=== PATIENT | female | born 1995 | race Hispanic/Latino ===

== ENCOUNTER 2019-07-22 19:56 | Emergency (ER) | payer BC ==
[~2019-07-22] VITALS: Ht 160 cm; Wt 70.3 kg
--- OUTSIDE RECORDS SUMMARY | 2019-07-22 20:00 | XMS REPORT ---
Author Author [facility], [place] Address Unknown Phone Unavailable Care Team Providers Care Plaster Molder Name Role Phone Unavailable Unavailable Payers Payer Name Policy Type Policy Number Effective Date Expiration Date Problems This patient has no known problems. Allergies, Adverse Reactions, Alerts Allergy Name Allergy Type Status Severity Reaction(s) Onset Date Inactive Date Treating Clinician Comments No Known Allergies DA Active U 2018-11-30 00:00:00 No Known Allergies DA Active U 2018-09-12 00:00:00 No Known Drug Allergies DA Active U 2017-07-23 00:00:00 Nestle quick jorge alberto powder DA Active IA 2017-06-07 00:00:00 Medications This patient has no known medications. Results Test Description Test Time Test Comments Text Results Atomic Results Result Comments CBC W/AUTO DIFF 2018-12-01 09:29:00 WHITE BLOOD CELL (test code=WBC) 11.2 K/mm3 4.5-12.5 RED BLOOD CELL (test code=RBC) 3.25 mill/mm3 3.7-5.2 HEMOGLOBIN (test code=HGB) 7.0 gram/dL 11.5-15.5 HEMATOCRIT (test code=HCT) 24.0 % 36.0-46.0 MEAN CELL VOLUME (test code=MCV) 73.8 fL 80-98 MEAN CELL HGB (test code=MCH) 21.5 picogram 27.0-33.0 MEAN CELL HGB CONCETRATION (test code=MCHC) 29.2 gram/dL 33.0-36.0 RED CELL DISTRIBUTION WIDTH (test code=RDW) 17.2 % 11.6-16.2 RED CELL DISTRIBUTION WIDTH SD (test code=RDW-SD) 41.2 fL 37.0-51.0 PLATELET COUNT (test code=PLT) 249 K/mm3 150-450 RESULT VERIFIED BY REPEAT ANALYSIS MEAN PLATELET VOLUME (test code=MPV) 11.1 fL 6.7-11.0 NEUTROPHIL % (test code=NT%) 75.2 % 39.0-69.0 IMMATURE GRANULOCYTE % (test code=IG%) 0.6 % 0.0-5.0 LYMPHOCYTE % (test code=LY%) 17.3 % 25.0-55.0 MONOCYTE % (test code=MO%) 6.3 % 0.0-10.0 EOSINOPHIL % (test code=EO%) 0.3 % 0.0-5.0 BASOPHIL % (test code=BA%) 0.3 % 0.0-1.0 NUCLEATED RBC % (test code=NRBC%) 0.0 % 0-0 NEUTROPHIL # (test code=NT#) 8.42 K/mm3 1.8-7.7 IMMATURE GRANULOCYTE # (test code=IG#) 0.07 x10 3/uL 0-0.03 LYMPHOCYTE # (test code=LY#) 1.94 K/mm3 1.0-5.0 MONOCYTE # (test code=MO#) 0.70 K/mm3 0-0.8 EOSINOPHIL # (test code=EO#) 0.03 K/mm3 0.0-0.5 BASOPHIL # (test code=BA#) 0.03 K/mm3 0.0-0.2 NUCLEATED RBC # (test code=NRBC#) 0.00 K/mm3 0.0-0.1 MANUAL DIFF REQUIRED (test code=MDIFF) NO, ONLY SCAN NEEDED SPECIMEN COMMENTS: day 1DIFFERENTIAL [id number] 09:29:00* Test Item Value Reference Range Comments STAIN ACCEPTABILITY (test code=STN ACCEPTABLE) STAIN ACCEPTABLE HYPOCHROMIA (test code=HYPO) 1+ POIKILOCYTOSIS (test code=POIK) 1+ ANISOCYTOSIS (test code=ANISO) 3+ MICROCYTOSIS (test code=MICR) 2+ ELLIPTOCYTES (test code=ELL) 1+ MILENA CELLS (test code=MILENA) 1+ NONE OVALOCYTES (test code=OVAL) 1+ PLATELET ESTIMATE (test code=PLTEST) ADEQUATE PLATELET MORPHOLOGY (test code=PLTMORPH) NORMAL SPECIMEN COMMENTS: day 1CBC W/AUTO [id number] 08:00:00* Test Item Value Reference Range Comments WHITE BLOOD CELL (test code=WBC) 11.2 K/mm3 4.5-12.5 RED BLOOD CELL (test code=RBC) 3.25 mill/mm3 3.7-5.2 HEMOGLOBIN (test code=HGB) 7.0 gram/dL 11.5-15.5 HEMATOCRIT (test code=HCT) 24.0 % 36.0-46.0 MEAN CELL VOLUME (test code=MCV) 73.8 fL 80-98 MEAN CELL HGB (test code=MCH) 21.5 picogram 27.0-33.0 MEAN CELL HGB CONCETRATION (test code=MCHC) 29.2 gram/dL 33.0-36.0 RED CELL DISTRIBUTION WIDTH (test code=RDW) 17.2 % 11.6-16.2 RED CELL DISTRIBUTION WIDTH SD (test code=RDW-SD) 41.2 fL 37.0-51.0 PLATELET COUNT (test code=PLT) 249 K/mm3 150-450 RESULT VERIFIED BY REPEAT ANALYSIS MEAN PLATELET VOLUME (test code=MPV) 11.1 fL 6.7-11.0 NEUTROPHIL % (test code=NT%) 75.2 % 39.0-69.0 IMMATURE GRANULOCYTE % (test code=IG%) 0.6 % 0.0-5.0 LYMPHOCYTE % (test code=LY%) 17.3 % 25.0-55.0 MONOCYTE % (test code=MO%) 6.3 % 0.0-10.0 EOSINOPHIL % (test code=EO%) 0.3 % 0.0-5.0 BASOPHIL % (test code=BA%) 0.3 % 0.0-1.0 NUCLEATED RBC % (test code=NRBC%) 0.0 % 0-0 NEUTROPHIL # (test code=NT#) 8.42 K/mm3 1.8-7.7 IMMATURE GRANULOCYTE # (test code=IG#) 0.07 x10 3/uL 0-0.03 LYMPHOCYTE # (test code=LY#) 1.94 K/mm3 1.0-5.0 MONOCYTE # (test code=MO#) 0.70 K/mm3 0-0.8 EOSINOPHIL # (test code=EO#) 0.03 K/mm3 0.0-0.5 BASOPHIL # (test code=BA#) 0.03 K/mm3 0.0-0.2 NUCLEATED RBC # (test code=NRBC#) 0.00 K/mm3 0.0-0.1 MANUAL DIFF REQUIRED (test code=MDIFF) NO, ONLY SCAN NEEDED SPECIMEN COMMENTS: day 1DIFFERENTIAL [id number] 08:00:00* Test Item Value Reference Range Comments STAIN ACCEPTABILITY (test code=STN ACCEPTABLE) MORPHOLOGY COMMENT (test code=MOC) PLATELET ESTIMATE (test code=PLTEST) PLATELET MORPHOLOGY (test code=PLTMORPH) SPECIMEN COMMENTS: day 1CBC W/AUTO [id number] 07:59:00* Test Item Value Reference Range Comments WHITE BLOOD CELL (test code=WBC) 11.2 K/mm3 4.5-12.5 RED BLOOD CELL (test code=RBC) 3.25 mill/mm3 3.7-5.2 HEMOGLOBIN (test code=HGB) 7.0 gram/dL 11.5-15.5 HEMATOCRIT (test code=HCT) 24.0 % 36.0-46.0 MEAN CELL VOLUME (test code=MCV) 73.8 fL 80-98 MEAN CELL HGB (test code=MCH) 21.5 picogram 27.0-33.0 MEAN CELL HGB CONCETRATION (test code=MCHC) 29.2 gram/dL 33.0-36.0 RED CELL DISTRIBUTION WIDTH (test code=RDW) 17.2 % 11.6-16.2 RED CELL DISTRIBUTION WIDTH SD (test code=RDW-SD) 41.2 fL 37.0-51.0 PLATELET COUNT (test code=PLT) 249 K/mm3 150-450 RESULT VERIFIED BY REPEAT ANALYSIS MEAN PLATELET VOLUME (test code=MPV) 11.1 fL 6.7-11.0 NEUTROPHIL % (test code=NT%) 75.2 % 39.0-69.0 IMMATURE GRANULOCYTE % (test code=IG%) 0.6 % 0.0-5.0 LYMPHOCYTE % (test code=LY%) 17.3 % 25.0-55.0 MONOCYTE % (test code=MO%) 6.3 % 0.0-10.0 EOSINOPHIL % (test code=EO%) 0.3 % 0.0-5.0 BASOPHIL % (test code=BA%) 0.3 % 0.0-1.0 NUCLEATED RBC % (test code=NRBC%) 0.0 % 0-0 NEUTROPHIL # (test code=NT#) 8.42 K/mm3 1.8-7.7 IMMATURE GRANULOCYTE # (test code=IG#) 0.07 x10 3/uL 0-0.03 LYMPHOCYTE # (test code=LY#) 1.94 K/mm3 1.0-5.0 MONOCYTE # (test code=MO#) 0.70 K/mm3 0-0.8 EOSINOPHIL # (test code=EO#) 0.03 K/mm3 0.0-0.5 BASOPHIL # (test code=BA#) 0.03 K/mm3 0.0-0.2 NUCLEATED RBC # (test code=NRBC#) 0.00 K/mm3 0.0-0.1 MANUAL DIFF REQUIRED (test code=MDIFF) NO, ONLY SCAN NEEDED SPECIMEN COMMENTS: day 1DIFFERENTIAL [id number] 07:59:00* Test Item Value Reference Range Comments STAIN ACCEPTABILITY (test code=STN ACCEPTABLE) CABOT RINGS (test code=CAB) MORPHOLOGY COMMENT (test code=MOC) PLATELET ESTIMATE (test code=PLTEST) PLATELET MORPHOLOGY (test code=PLTMORPH) SPECIMEN COMMENTS: day 1CBC W/AUTO [id number] 07:59:00* Test Item Value Reference Range Comments WHITE BLOOD CELL (test code=WBC) 11.2 K/mm3 4.5-12.5 RED BLOOD CELL (test code=RBC) 3.25 mill/mm3 3.7-5.2 HEMOGLOBIN (test code=HGB) 7.0 gram/dL 11.5-15.5 HEMATOCRIT (test code=HCT) 24.0 % 36.0-46.0 MEAN CELL VOLUME (test code=MCV) 73.8 fL 80-98 MEAN CELL HGB (test code=MCH) 21.5 picogram 27.0-33.0 MEAN CELL HGB CONCETRATION (test code=MCHC) 29.2 gram/dL 33.0-36.0 RED CELL DISTRIBUTION WIDTH (test code=RDW) 17.2 % 11.6-16.2 RED CELL DISTRIBUTION WIDTH SD (test code=RDW-SD) 41.2 fL 37.0-51.0 PLATELET COUNT (test code=PLT) 249 K/mm3 150-450 RESULT VERIFIED BY REPEAT ANALYSIS MEAN PLATELET VOLUME (test code=MPV) 11.1 fL 6.7-11.0 NEUTROPHIL % (test code=NT%) 75.2 % 39.0-69.0 IMMATURE GRANULOCYTE % (test code=IG%) 0.6 % 0.0-5.0 LYMPHOCYTE % (test code=LY%) 17.3 % 25.0-55.0 MONOCYTE % (test code=MO%) 6.3 % 0.0-10.0 EOSINOPHIL % (test code=EO%) 0.3 % 0.0-5.0 BASOPHIL % (test code=BA%) 0.3 % 0.0-1.0 NUCLEATED RBC % (test code=NRBC%) 0.0 % 0-0 NEUTROPHIL # (test code=NT#) 8.42 K/mm3 1.8-7.7 IMMATURE GRANULOCYTE # (test code=IG#) 0.07 x10 3/uL 0-0.03 LYMPHOCYTE # (test code=LY#) 1.94 K/mm3 1.0-5.0 MONOCYTE # (test code=MO#) 0.70 K/mm3 0-0.8 EOSINOPHIL # (test code=EO#) 0.03 K/mm3 0.0-0.5 BASOPHIL # (test code=BA#) 0.03 K/mm3 0.0-0.2 NUCLEATED RBC # (test code=NRBC#) 0.00 K/mm3 0.0-0.1 MANUAL DIFF REQUIRED (test code=MDIFF) NO, ONLY SCAN NEEDED SPECIMEN COMMENTS: day 1DIFFERENTIAL [id number] 07:59:00* Test Item Value Reference Range Comments STAIN ACCEPTABILITY (test code=STN ACCEPTABLE) MORPHOLOGY COMMENT (test code=MOC) PLATELET ESTIMATE (test code=PLTEST) PLATELET MORPHOLOGY (test code=PLTMORPH) SPECIMEN COMMENTS: day 1CBC W/AUTO [id number] 07:59:00* Test Item Value Reference Range Comments WHITE BLOOD CELL (test code=WBC) 11.2 K/mm3 4.5-12.5 RED BLOOD CELL (test code=RBC) 3.25 mill/mm3 3.7-5.2 HEMOGLOBIN (test code=HGB) 7.0 gram/dL 11.5-15.5 HEMATOCRIT (test code=HCT) 24.0 % 36.0-46.0 MEAN CELL VOLUME (test code=MCV) 73.8 fL 80-98 MEAN CELL HGB (test code=MCH) 21.5 picogram 27.0-33.0 MEAN CELL HGB CONCETRATION (test code=MCHC) 29.2 gram/dL 33.0-36.0 RED CELL DISTRIBUTION WIDTH (test code=RDW) 17.2 % 11.6-16.2 RED CELL DISTRIBUTION WIDTH SD (test code=RDW-SD) 41.2 fL 37.0-51.0 PLATELET COUNT (test code=PLT) 249 K/mm3 150-450 RESULT VERIFIED BY REPEAT ANALYSIS MEAN PLATELET VOLUME (test code=MPV) 11.1 fL 6.7-11.0 NEUTROPHIL % (test code=NT%) 75.2 % 39.0-69.0 IMMATURE GRANULOCYTE % (test code=IG%) 0.6 % 0.0-5.0 LYMPHOCYTE % (test code=LY%) 17.3 % 25.0-55.0 MONOCYTE % (test code=MO%) 6.3 % 0.0-10.0 EOSINOPHIL % (test code=EO%) 0.3 % 0.0-5.0 BASOPHIL % (test code=BA%) 0.3 % 0.0-1.0 NUCLEATED RBC % (test code=NRBC%) 0.0 % 0-0 NEUTROPHIL # (test code=NT#) 8.42 K/mm3 1.8-7.7 IMMATURE GRANULOCYTE # (test code=IG#) 0.07 x10 3/uL 0-0.03 LYMPHOCYTE # (test code=LY#) 1.94 K/mm3 1.0-5.0 MONOCYTE # (test code=MO#) 0.70 K/mm3 0-0.8 EOSINOPHIL # (test code=EO#) 0.03 K/mm3 0.0-0.5 BASOPHIL # (test code=BA#) 0.03 K/mm3 0.0-0.2 NUCLEATED RBC # (test code=NRBC#) 0.00 K/mm3 0.0-0.1 MANUAL DIFF REQUIRED (test code=MDIFF) NO, ONLY SCAN NEEDED SPECIMEN COMMENTS: day 1DIFFERENTIAL [id number] 07:59:00* Test Item Value Reference Range Comments STAIN ACCEPTABILITY (test code=STN ACCEPTABLE) CABOT RINGS (test code=CAB) MORPHOLOGY COMMENT (test code=MOC) PLATELET ESTIMATE (test code=PLTEST) PLATELET MORPHOLOGY (test code=PLTMORPH) SPECIMEN COMMENTS: day 1URINALYSIS [id number] 18:52:00* Test Item Value Reference Range Comments UA COLOR (test code=COLU) [place] YELLOW UA APPEARANCE (test code=APPU) Cloudy CLEAR UA GLUCOSE DIPSTICK (test code=DGLUU) NEGATIVE mg/dL NEGATIVE UA BILIRUBIN DIPSTICK (test code=BILU) NEGATIVE mg/dL NEGATIVE UA KETONE DIPSTICK (test code=KETU) 80 (3+) mg/dL NEGATIVE UA SPECIFIC GRAVITY (test code=SGU) 1.023 1.001-1.035 UA BLOOD DIPSTICK (test code=[place]IA [place]) Negative mg/dL NEGATIVE UA PH DIPSTICK (test code=SPIKE) 6.5 5.0-8.0 UA PROTEIN DIPSTICK (test code=PROU) 50 (1+) mg/dL NEGATIVE UA UROBILINIOGEN DIPSTICK (test code=URO) Normal mg/dL NEGATIVE UA NITRITE DIPSTICK (test code=MARGARET) NEGATIVE NEGATIVE UA LEUKOCYTE ESTERASE W REFLEX (test code=LEUUR) 500 Neno/uL (3+) Neno/uL NEGATIVE UA WBC (test code=WBCU) 51-100 per HPF 0-5 UA RBC (test code=RBCU) 3-5 #/HPF 0-5 UA EPITHELIAL CELLS (test code=EPIU) MANY per HPF FEW UA BACTERIA (test code=BACU) MODERATE #/HPF NONE UA MUCUS (test code=MUCU) MANY #/LPF FEW AG HEPAT B [id number] 18:23:00* Test Item Value Reference Range Comments AG HEPAT B SURF (test code=HBSAG) Nonreactive Index Nonreactive URINALYSIS [id number] 18:14:00* Test Item Value Reference Range Comments UA COLOR (test code=COLU) [place] YELLOW UA APPEARANCE (test code=APPU) Cloudy CLEAR UA GLUCOSE DIPSTICK (test code=DGLUU) NEGATIVE mg/dL NEGATIVE UA BILIRUBIN DIPSTICK (test code=BILU) NEGATIVE mg/dL NEGATIVE UA KETONE DIPSTICK (test code=KETU) 80 (3+) mg/dL NEGATIVE UA SPECIFIC GRAVITY (test code=SGU) 1.023 1.001-1.035 UA BLOOD DIPSTICK (test code=[place]) Negative mg/dL NEGATIVE UA PH DIPSTICK (test code=SPIKE) 6.5 5.0-8.0 UA PROTEIN DIPSTICK (test code=PROU) 50 (1+) mg/dL NEGATIVE UA UROBILINIOGEN DIPSTICK (test code=URO) Normal mg/dL NEGATIVE UA NITRITE DIPSTICK (test code=MARGARET) NEGATIVE NEGATIVE UA LEUKOCYTE ESTERASE W REFLEX (test code=LEUUR) 500 Neno/uL (3+) Neno/uL NEGATIVE UA WBC (test code=WBCU) per HPF 0-5 UA RBC (test code=RBCU) per HPF 0-5 UA EPITHELIAL CELLS (test code=EPIU) per HPF Few UA BACTERIA (test code=BACU) per HPF NONE URINALYSIS [id number] 18:14:00* Test Item Value Reference Range Comments UA COLOR (test code=COLU) [place] YELLOW UA APPEARANCE (test code=APPU) Cloudy CLEAR UA GLUCOSE DIPSTICK (test code=DGLUU) NEGATIVE mg/dL NEGATIVE UA BILIRUBIN DIPSTICK (test code=BILU) NEGATIVE mg/dL NEGATIVE UA KETONE DIPSTICK (test code=KETU) 80 (3+) mg/dL NEGATIVE UA SPECIFIC GRAVITY (test code=SGU) 1.023 1.001-1.035 UA BLOOD DIPSTICK (test code=[place]) Negative mg/dL NEGATIVE UA PH DIPSTICK (test code=SPIKE) 6.5 5.0-8.0 UA PROTEIN DIPSTICK (test code=PROU) 50 (1+) mg/dL NEGATIVE UA UROBILINIOGEN DIPSTICK (test code=URO) Normal mg/dL NEGATIVE UA NITRITE DIPSTICK (test code=MARGARET) NEGATIVE NEGATIVE UA LEUKOCYTE ESTERASE W REFLEX (test code=LEUUR) 500 Neno/uL (3+) Neno/uL NEGATIVE UA WBC (test code=WBCU) per HPF 0-5 UA RBC (test code=RBCU) per HPF 0-5 UA EPITHELIAL CELLS (test code=EPIU) per HPF Few UA BACTERIA (test code=BACU) per HPF NONE CBC W/AUTO [id number] 17:57:00* Test Item Value Reference Range Comments WHITE BLOOD CELL (test code=WBC) 11.3 K/mm3 4.5-12.5 RED BLOOD CELL (test code=RBC) 4.12 mill/mm3 3.7-5.2 HEMOGLOBIN (test code=HGB) 8.9 gram/dL 11.5-15.5 HEMATOCRIT (test code=HCT) 30.5 % 36.0-46.0 MEAN CELL VOLUME (test code=MCV) 74.0 fL 80-98 MEAN CELL HGB (test code=MCH) 21.6 picogram 27.0-33.0 MEAN CELL HGB CONCETRATION (test code=MCHC) 29.2 gram/dL 33.0-36.0 RED CELL DISTRIBUTION WIDTH (test code=RDW) 17.7 % 11.6-16.2 RED CELL DISTRIBUTION WIDTH SD (test code=RDW-SD) 41.1 fL 37.0-51.0 PLATELET COUNT (test code=PLT) 334 K/mm3 150-450 MEAN PLATELET VOLUME (test code=MPV) 10.5 fL 6.7-11.0 IMMATURE GRANULOCYTE % (test code=IG%) 0.6 % 0.0-5.0 NUCLEATED RBC % (test code=NRBC%) 0.0 % 0-0 NEUTROPHIL # (test code=NT#) 9.07 K/mm3 1.8-7.7 IMMATURE GRANULOCYTE # (test code=IG#) 0.07 x10 3/uL 0-0.03 LYMPHOCYTE # (test code=LY#) 1.56 K/mm3 1.0-5.0 MONOCYTE # (test code=MO#) 0.50 K/mm3 0-0.8 EOSINOPHIL # (test code=EO#) 0.02 K/mm3 0.0-0.5 BASOPHIL # (test code=BA#) 0.03 K/mm3 0.0-0.2 NUCLEATED RBC # (test code=NRBC#) 0.00 K/mm3 0.0-0.1 MANUAL DIFF REQUIRED (test code=MDIFF) NO, ONLY SCAN NEEDED DIFFERENTIAL [id number] 17:57:00* Test Item Value Reference Range Comments STAIN ACCEPTABILITY (test code=STN ACCEPTABLE) STAIN ACCEPTABLE POLYCHROMASIA (test code=POLC) 1+ HYPOCHROMIA (test code=HYPO) 2+ POIKILOCYTOSIS (test code=POIK) 1+ ANISOCYTOSIS (test code=ANISO) 2+ MICROCYTOSIS (test code=MICR) 2+ CRENATED CELLS (test code=CREN) 1+ PLATELET ESTIMATE (test code=PLTEST) ADEQUATE PLATELET MORPHOLOGY (test code=PLTMORPH) SIZE VARIABLE CBC W/AUTO [id number] 17:26:00* Test Item Value Reference Range Comments WHITE BLOOD CELL (test code=WBC) 11.3 K/mm3 4.5-12.5 RED BLOOD CELL (test code=RBC) 4.12 mill/mm3 3.7-5.2 HEMOGLOBIN (test code=HGB) 8.9 gram/dL 11.5-15.5 HEMATOCRIT (test code=HCT) 30.5 % 36.0-46.0 MEAN CELL VOLUME (test code=MCV) 74.0 fL 80-98 MEAN CELL HGB (test code=MCH) 21.6 picogram 27.0-33.0 MEAN CELL HGB CONCETRATION (test code=MCHC) 29.2 gram/dL 33.0-36.0 RED CELL DISTRIBUTION WIDTH (test code=RDW) 17.7 % 11.6-16.2 RED CELL DISTRIBUTION WIDTH SD (test code=RDW-SD) 41.1 fL 37.0-51.0 PLATELET COUNT (test code=PLT) 334 K/mm3 150-450 MEAN PLATELET VOLUME (test code=MPV) 10.5 fL 6.7-11.0 IMMATURE GRANULOCYTE % (test code=IG%) 0.6 % 0.0-5.0 NUCLEATED RBC % (test code=NRBC%) 0.0 % 0-0 NEUTROPHIL # (test code=NT#) 9.07 K/mm3 1.8-7.7 IMMATURE GRANULOCYTE # (test code=IG#) 0.07 x10 3/uL 0-0.03 LYMPHOCYTE # (test code=LY#) 1.56 K/mm3 1.0-5.0 MONOCYTE # (test code=MO#) 0.50 K/mm3 0-0.8 EOSINOPHIL # (test code=EO#) 0.02 K/mm3 0.0-0.5 BASOPHIL # (test code=BA#) 0.03 K/mm3 0.0-0.2 NUCLEATED RBC # (test code=NRBC#) 0.00 K/mm3 0.0-0.1 MANUAL DIFF REQUIRED (test code=MDIFF) NO, ONLY SCAN NEEDED DIFFERENTIAL [id number] 17:26:00* Test Item Value Reference Range Comments STAIN ACCEPTABILITY (test code=STN ACCEPTABLE) CABOT RINGS (test code=CAB) MORPHOLOGY COMMENT (test code=MOC) PLATELET ESTIMATE (test code=PLTEST) PLATELET MORPHOLOGY (test code=PLTMORPH) CBC W/AUTO [id number] 17:26:00* Test Item Value Reference Range Comments WHITE BLOOD CELL (test code=WBC) 11.3 K/mm3 4.5-12.5 RED BLOOD CELL (test code=RBC) 4.12 mill/mm3 3.7-5.2 HEMOGLOBIN (test code=HGB) 8.9 gram/dL 11.5-15.5 HEMATOCRIT (test code=HCT) 30.5 % 36.0-46.0 MEAN CELL VOLUME (test code=MCV) 74.0 fL 80-98 MEAN CELL HGB (test code=MCH) 21.6 picogram 27.0-33.0 MEAN CELL HGB CONCETRATION (test code=MCHC) 29.2 gram/dL 33.0-36.0 RED CELL DISTRIBUTION WIDTH (test code=RDW) 17.7 % 11.6-16.2 RED CELL DISTRIBUTION WIDTH SD (test code=RDW-SD) 41.1 fL 37.0-51.0 PLATELET COUNT (test code=PLT) 334 K/mm3 150-450 MEAN PLATELET VOLUME (test code=MPV) 10.5 fL 6.7-11.0 IMMATURE GRANULOCYTE % (test code=IG%) 0.6 % 0.0-5.0 NUCLEATED RBC % (test code=NRBC%) 0.0 % 0-0 NEUTROPHIL # (test code=NT#) 9.07 K/mm3 1.8-7.7 IMMATURE GRANULOCYTE # (test code=IG#) 0.07 x10 3/uL 0-0.03 LYMPHOCYTE # (test code=LY#) 1.56 K/mm3 1.0-5.0 MONOCYTE # (test code=MO#) 0.50 K/mm3 0-0.8 EOSINOPHIL # (test code=EO#) 0.02 K/mm3 0.0-0.5 BASOPHIL # (test code=BA#) 0.03 K/mm3 0.0-0.2 NUCLEATED RBC # (test code=NRBC#) 0.00 K/mm3 0.0-0.1 MANUAL DIFF REQUIRED (test code=MDIFF) NO, ONLY SCAN NEEDED DIFFERENTIAL [id number] 17:26:00* Test Item Value Reference Range Comments STAIN ACCEPTABILITY (test code=STN ACCEPTABLE) CABOT RINGS (test code=CAB) MORPHOLOGY COMMENT (test code=MOC) PLATELET ESTIMATE (test code=PLTEST) PLATELET MORPHOLOGY (test code=PLTMORPH) CBC W/AUTO [id number] 17:26:00* Test Item Value Reference Range Comments WHITE BLOOD CELL (test code=WBC) 11.3 K/mm3 4.5-12.5 RED BLOOD CELL (test code=RBC) 4.12 mill/mm3 3.7-5.2 HEMOGLOBIN (test code=HGB) 8.9 gram/dL 11.5-15.5 HEMATOCRIT (test code=HCT) 30.5 % 36.0-46.0 MEAN CELL VOLUME (test code=MCV) 74.0 fL 80-98 MEAN CELL HGB (test code=MCH) 21.6 picogram 27.0-33.0 MEAN CELL HGB CONCETRATION (test code=MCHC) 29.2 gram/dL 33.0-36.0 RED CELL DISTRIBUTION WIDTH (test code=RDW) 17.7 % 11.6-16.2 RED CELL DISTRIBUTION WIDTH SD (test code=RDW-SD) 41.1 fL 37.0-51.0 PLATELET COUNT (test code=PLT) 334 K/mm3 150-450 MEAN PLATELET VOLUME (test code=MPV) 10.5 fL 6.7-11.0 IMMATURE GRANULOCYTE % (test code=IG%) 0.6 % 0.0-5.0 NUCLEATED RBC % (test code=NRBC%) 0.0 % 0-0 NEUTROPHIL # (test code=NT#) 9.07 K/mm3 1.8-7.7 IMMATURE GRANULOCYTE # (test code=IG#) 0.07 x10 3/uL 0-0.03 LYMPHOCYTE # (test code=LY#) 1.56 K/mm3 1.0-5.0 MONOCYTE # (test code=MO#) 0.50 K/mm3 0-0.8 EOSINOPHIL # (test code=EO#) 0.02 K/mm3 0.0-0.5 BASOPHIL # (test code=BA#) 0.03 K/mm3 0.0-0.2 NUCLEATED RBC # (test code=NRBC#) 0.00 K/mm3 0.0-0.1 MANUAL DIFF REQUIRED (test code=MDIFF) NO, ONLY SCAN NEEDED DIFFERENTIAL [id number] 17:26:00* Test Item Value Reference Range Comments STAIN ACCEPTABILITY (test code=STN ACCEPTABLE) MORPHOLOGY COMMENT (test code=MOC) PLATELET ESTIMATE (test code=PLTEST) PLATELET MORPHOLOGY (test code=PLTMORPH) CBC W/AUTO [id number] 17:26:00* Test Item Value Reference Range Comments WHITE BLOOD CELL (test code=WBC) 11.3 K/mm3 4.5-12.5 RED BLOOD CELL (test code=RBC) 4.12 mill/mm3 3.7-5.2 HEMOGLOBIN (test code=HGB) 8.9 gram/dL 11.5-15.5 HEMATOCRIT (test code=HCT) 30.5 % 36.0-46.0 MEAN CELL VOLUME (test code=MCV) 74.0 fL 80-98 MEAN CELL HGB (test code=MCH) 21.6 picogram 27.0-33.0 MEAN CELL HGB CONCETRATION (test code=MCHC) 29.2 gram/dL 33.0-36.0 RED CELL DISTRIBUTION WIDTH (test code=RDW) 17.7 % 11.6-16.2 RED CELL DISTRIBUTION WIDTH SD (test code=RDW-SD) 41.1 fL 37.0-51.0 PLATELET COUNT (test code=PLT) 334 K/mm3 150-450 MEAN PLATELET VOLUME (test code=MPV) 10.5 fL 6.7-11.0 IMMATURE GRANULOCYTE % (test code=IG%) 0.6 % 0.0-5.0 NUCLEATED RBC % (test code=NRBC%) 0.0 % 0-0 NEUTROPHIL # (test code=NT#) 9.07 K/mm3 1.8-7.7 IMMATURE GRANULOCYTE # (test code=IG#) 0.07 x10 3/uL 0-0.03 LYMPHOCYTE # (test code=LY#) 1.56 K/mm3 1.0-5.0 MONOCYTE # (test code=MO#) 0.50 K/mm3 0-0.8 EOSINOPHIL # (test code=EO#) 0.02 K/mm3 0.0-0.5 BASOPHIL # (test code=BA#) 0.03 K/mm3 0.0-0.2 NUCLEATED RBC # (test code=NRBC#) 0.00 K/mm3 0.0-0.1 MANUAL DIFF REQUIRED (test code=MDIFF) NO, ONLY SCAN NEEDED DIFFERENTIAL [id number] 17:26:00* Test Item Value Reference Range Comments STAIN ACCEPTABILITY (test code=STN ACCEPTABLE) CABOT RINGS (test code=CAB) MORPHOLOGY COMMENT (test code=MOC) PLATELET ESTIMATE (test code=PLTEST) PLATELET MORPHOLOGY (test code=PLTMORPH) UA GLUCOSE DIPSTIC [id number] 16:44:00* Test Item Value Reference Range Comments UA GLUCOSE DIPSTIC POC (test code=GLUUP) Negative Negative UA GLU: NEGATIVEKET UA 5 (Trace)PH UA 7.0UA NIT NegativePROT UA NEGATIVEBL UA NE GATIVEUA NENO NegativeTime performed: 0303UA KETONE DIPSTICK [id number] 16:44:00* Test Item Value Reference Range Comments UA KETONE DIPSTICK POC (test code=KETUP) Negative UA GLU: NEGATIVEKET UA 5 (Trace)PH UA 7.0UA NIT NegativePROT UA NEGATIVEBL UA NE GATIVEUA NENO NegativeTime performed: 0303UA BLOOD DIPSTIC [id number] 16:44:00 * Test Item Value Reference Range Comments UA BLOOD DIPSTIC POC (test code=BLUP) NEGATIVE UA GLU: NEGATIVEKET UA 5 (Trace)PH UA 7.0UA NIT NegativePROT UA NEGATIVEBL UA NE GATIVEUA NENO NegativeTime performed: 0303UA PH DIPSTIC [id number] 16:44:00* Test Item Value Reference Range Comments UA PH DIPSTIC POC (test code=PHUP) 5-8 UA GLU: NEGATIVEKET UA 5 (Trace)PH UA 7.0UA NIT NegativePROT UA NEGATIVEBL UA NE GATIVEUA NENO NegativeTime performed: 0303UA PROTEIN DIPSTICK [id number] 16:44:00* Test Item Value Reference Range Comments UA PROTEIN DIPSTICK POC (test code=DPROUP) Neg -15 UA GLU: NEGATIVEKET UA 5 (Trace)PH UA 7.0UA NIT NegativePROT UA NEGATIVEBL UA NE GATIVEUA NENO NegativeTime performed: 0303UA NITRITE DIPSTICK [id number] 16:44:00* Test Item Value Reference Range Comments UA NITRITE DIPSTICK POC (test code=NITUP) Negative UA GLU: NEGATIVEKET UA 5 (Trace)PH UA 7.0UA NIT NegativePROT UA NEGATIVEBL UA NE GATIVEUA NENO NegativeTime performed: 302UA LEUKOCYTE ESTERASE [id number] 16:44:00* Test Item Value Reference Range Comments UA LEUKOCYTE ESTERASE POC (test code=LEUUPOC) NEGATIVE UA GLU: NEGATIVEKET UA 5 (Trace)PH UA 7.0UA NIT NegativePROT UA NEGATIVEBL UA NE GATIVEUA NENO NegativeTime performed: 3UA GLUCOSE DIPSTIC [id number] 16:44:00* Test Item Value Reference Range Comments UA GLUCOSE DIPSTIC POC (test code=GLUUP) Negative Negative UA GLU: NEGATIVEKET UA 5 (Trace)PH UA 7.0UA NIT NegativePROT UA NEGATIVEBL UA NE GATIVEUA NENO NegativeTime performed: 302UA KETONE DIPSTICK [id number] 16:44:00* Test Item Value Reference Range Comments UA KETONE DIPSTICK POC (test code=KETUP) 5 Negative UA GLU: NEGATIVEKET UA 5 (Trace)PH UA 7.0UA NIT NegativePROT UA NEGATIVEBL UA NE GATIVEUA NENO NegativeTime performed: 0303UA BLOOD DIPSTIC [id number] 16:44:00 * Test Item Value Reference Range Comments UA BLOOD DIPSTIC POC (test code=BLUP) NEGATIVE UA GLU: NEGATIVEKET UA 5 (Trace)PH UA 7.0UA NIT NegativePROT UA NEGATIVEBL UA NE GATIVEUA NENO NegativeTime performed: 0303UA PH DIPSTIC [id number] 16:44:00* Test Item Value Reference Range Comments UA PH DIPSTIC POC (test code=PHUP) 5-8 UA GLU: NEGATIVEKET UA 5 (Trace)PH UA 7.0UA NIT NegativePROT UA NEGATIVEBL UA NE GATIVEUA NENO NegativeTime performed: 0303UA PROTEIN DIPSTICK [id number] 16:44:00* Test Item Value Reference Range Comments UA PROTEIN DIPSTICK POC (test code=DPROUP) Neg -15 UA GLU: NEGATIVEKET UA 5 (Trace)PH UA 7.0UA NIT NegativePROT UA NEGATIVEBL UA NE GATIVEUA NENO NegativeTime performed: 0303UA NITRITE DIPSTICK [id number] 16:44:00* Test Item Value Reference Range Comments UA NITRITE DIPSTICK POC (test code=NITUP) Negative UA GLU: NEGATIVEKET UA 5 (Trace)PH UA 7.0UA NIT NegativePROT UA NEGATIVEBL UA NE GATIVEUA NENO NegativeTime performed: 3UA LEUKOCYTE ESTERASE [id number] 16:44:00* Test Item Value Reference Range Comments UA LEUKOCYTE ESTERASE POC (test code=LEUUPOC) NEGATIVE UA GLU: NEGATIVEKET UA 5 (Trace)PH UA 7.0UA NIT NegativePROT UA NEGATIVEBL UA NE GATIVEUA NENO NegativeTime performed: 3UA GLUCOSE DIPSTIC [id number] 16:44:00* Test Item Value Reference Range Comments UA GLUCOSE DIPSTIC POC (test code=GLUUP) Negative Negative UA GLU: NEGATIVEKET UA 5 (Trace)PH UA 7.0UA NIT NegativePROT UA NEGATIVEBL UA NE GATIVEUA NENO NegativeTime performed: 302UA KETONE DIPSTICK [id number] 16:44:00* Test Item Value Reference Range Comments UA KETONE DIPSTICK POC (test code=KETUP) 5 Negative UA GLU: NEGATIVEKET UA 5 (Trace)PH UA 7.0UA NIT NegativePROT UA NEGATIVEBL UA NE GATIVEUA NENO NegativeTime performed: 0303UA BLOOD DIPSTIC [id number] 16:44:00 * Test Item Value Reference Range Comments UA BLOOD DIPSTIC POC (test code=BLUP) Negative NEGATIVE UA GLU: NEGATIVEKET UA 5 (Trace)PH UA 7.0UA NIT NegativePROT UA NEGATIVEBL UA NE GATIVEUA NENO NegativeTime performed: 0303UA PH DIPSTIC [id number] 16:44:00* Test Item Value Reference Range Comments UA PH DIPSTIC POC (test code=PHUP) 5-8 UA GLU: NEGATIVEKET UA 5 (Trace)PH UA 7.0UA NIT NegativePROT UA NEGATIVEBL UA NE GATIVEUA NENO NegativeTime performed: 0303UA PROTEIN DIPSTICK [id number] 16:44:00* Test Item Value Reference Range Comments UA PROTEIN DIPSTICK POC (test code=DPROUP) Neg -15 UA GLU: NEGATIVEKET UA 5 (Trace)PH UA 7.0UA NIT NegativePROT UA NEGATIVEBL UA NE GATIVEUA NENO NegativeTime performed: 0303UA NITRITE DIPSTICK [id number] 16:44:00* Test Item Value Reference Range Comments UA NITRITE DIPSTICK POC (test code=NITUP) Negative UA GLU: NEGATIVEKET UA 5 (Trace)PH UA 7.0UA NIT NegativePROT UA NEGATIVEBL UA NE GATIVEUA NENO NegativeTime performed: 3UA LEUKOCYTE ESTERASE [id number] 16:44:00* Test Item Value Reference Range Comments UA LEUKOCYTE ESTERASE POC (test code=LEUUPOC) NEGATIVE UA GLU: NEGATIVEKET UA 5 (Trace)PH UA 7.0UA NIT NegativePROT UA NEGATIVEBL UA NE GATIVEUA NENO NegativeTime performed: 0303UA GLUCOSE DIPSTIC [id number] 16:44:00* Test Item Value Reference Range Comments UA GLUCOSE DIPSTIC POC (test code=GLUUP) Negative Negative UA GLU: NEGATIVEKET UA 5 (Trace)PH UA 7.0UA NIT NegativePROT UA NEGATIVEBL UA NE GATIVEUA NENO NegativeTime performed: 0303UA KETONE DIPSTICK [id number] 16:44:00* Test Item Value Reference Range Comments UA KETONE DIPSTICK POC (test code=KETUP) 5 Negative UA GLU: NEGATIVEKET UA 5 (Trace)PH UA 7.0UA NIT NegativePROT UA NEGATIVEBL UA NE GATIVEUA NENO NegativeTime performed: 0303UA BLOOD DIPSTIC [id number] 16:44:00 * Test Item Value Reference Range Comments UA BLOOD DIPSTIC POC (test code=BLUP) Negative NEGATIVE UA GLU: NEGATIVEKET UA 5 (Trace)PH UA 7.0UA NIT NegativePROT UA NEGATIVEBL UA NE GATIVEUA NENO NegativeTime performed: 0303UA PH DIPSTIC [id number] 16:44:00* Test Item Value Reference Range Comments UA PH DIPSTIC POC (test code=PHUP) 7 5-8 UA GLU: NEGATIVEKET UA 5 (Trace)PH UA 7.0UA NIT NegativePROT UA NEGATIVEBL UA NE GATIVEUA NENO NegativeTime performed: 0303UA PROTEIN DIPSTICK [id number] 16:44:00* Test Item Value Reference Range Comments UA PROTEIN DIPSTICK POC (test code=DPROUP) Neg -15 UA GLU: NEGATIVEKET UA 5 (Trace)PH UA 7.0UA NIT NegativePROT UA NEGATIVEBL UA NE GATIVEUA NENO NegativeTime performed: 0303UA NITRITE DIPSTICK [id number] 16:44:00* Test Item Value Reference Range Comments UA NITRITE DIPSTICK POC (test code=NITUP) Negative UA GLU: NEGATIVEKET UA 5 (Trace)PH UA 7.0UA NIT NegativePROT UA NEGATIVEBL UA NE GATIVEUA NENO NegativeTime performed: 3UA LEUKOCYTE ESTERASE [id number] 16:44:00* Test Item Value Reference Range Comments UA LEUKOCYTE ESTERASE POC (test code=LEUUPOC) NEGATIVE UA GLU: NEGATIVEKET UA 5 (Trace)PH UA 7.0UA NIT NegativePROT UA NEGATIVEBL UA NE GATIVEUA NENO NegativeTime performed: 0303UA GLUCOSE DIPSTIC [id number] 16:44:00* Test Item Value Reference Range Comments UA GLUCOSE DIPSTIC POC (test code=GLUUP) Negative Negative UA GLU: NEGATIVEKET UA 5 (Trace)PH UA 7.0UA NIT NegativePROT UA NEGATIVEBL UA NE GATIVEUA NENO NegativeTime performed: 030UA KETONE DIPSTICK [id number] 16:44:00* Test Item Value Reference Range Comments UA KETONE DIPSTICK POC (test code=KETUP) 5 Negative UA GLU: NEGATIVEKET UA 5 (Trace)PH UA 7.0UA NIT NegativePROT UA NEGATIVEBL UA NE GATIVEUA NENO NegativeTime performed: 0303UA BLOOD DIPSTIC [id number] 16:44:00 * Test Item Value Reference Range Comments UA BLOOD DIPSTIC POC (test code=BLUP) Negative NEGATIVE UA GLU: NEGATIVEKET UA 5 (Trace)PH UA 7.0UA NIT NegativePROT UA NEGATIVEBL UA NE GATIVEUA NENO NegativeTime performed: 0303UA PH DIPSTIC [id number] 16:44:00* Test Item Value Reference Range Comments UA PH DIPSTIC POC (test code=PHUP) 7 5-8 UA GLU: NEGATIVEKET UA 5 (Trace)PH UA 7.0UA NIT NegativePROT UA NEGATIVEBL UA NE GATIVEUA NENO NegativeTime performed: 0303UA PROTEIN DIPSTICK [id number] 16:44:00* Test Item Value Reference Range Comments UA PROTEIN DIPSTICK POC (test code=DPROUP) Negative Neg -15 UA GLU: NEGATIVEKET UA 5 (Trace)PH UA 7.0UA NIT NegativePROT UA NEGATIVEBL UA NE GATIVEUA NENO NegativeTime performed: 0303UA NITRITE DIPSTICK [id number] 16:44:00* Test Item Value Reference Range Comments UA NITRITE DIPSTICK POC (test code=NITUP) Negative UA GLU: NEGATIVEKET UA 5 (Trace)PH UA 7.0UA NIT NegativePROT UA NEGATIVEBL UA NE GATIVEUA NENO NegativeTime performed: 3UA LEUKOCYTE ESTERASE [id number] 16:44:00* Test Item Value Reference Range Comments UA LEUKOCYTE ESTERASE POC (test code=LEUUPOC) NEGATIVE UA GLU: NEGATIVEKET UA 5 (Trace)PH UA 7.0UA NIT NegativePROT UA NEGATIVEBL UA NE GATIVEUA NENO NegativeTime performed: 0303UA GLUCOSE DIPSTIC [id number] 16:44:00* Test Item Value Reference Range Comments UA GLUCOSE DIPSTIC POC (test code=GLUUP) Negative Negative UA GLU: NEGATIVEKET UA 5 (Trace)PH UA 7.0UA NIT NegativePROT UA NEGATIVEBL UA NE GATIVEUA NENO NegativeTime performed: 302UA KETONE DIPSTICK [id number] 16:44:00* Test Item Value Reference Range Comments UA KETONE DIPSTICK POC (test code=KETUP) 5 Negative UA GLU: NEGATIVEKET UA 5 (Trace)PH UA 7.0UA NIT NegativePROT UA NEGATIVEBL UA NE GATIVEUA NENO NegativeTime performed: 0303UA BLOOD DIPSTIC [id number] 16:44:00 * Test Item Value Reference Range Comments UA BLOOD DIPSTIC POC (test code=BLUP) Negative NEGATIVE UA GLU: NEGATIVEKET UA 5 (Trace)PH UA 7.0UA NIT NegativePROT UA NEGATIVEBL UA NE GATIVEUA NENO NegativeTime performed: 0303UA PH DIPSTIC [id number] 16:44:00* Test Item Value Reference Range Comments UA PH DIPSTIC POC (test code=PHUP) 7 5-8 UA GLU: NEGATIVEKET UA 5 (Trace)PH UA 7.0UA NIT NegativePROT UA NEGATIVEBL UA NE GATIVEUA NENO NegativeTime performed: 0303UA PROTEIN DIPSTICK [id number] 16:44:00* Test Item Value Reference Range Comments UA PROTEIN DIPSTICK POC (test code=DPROUP) Negative Neg -15 UA GLU: NEGATIVEKET UA 5 (Trace)PH UA 7.0UA NIT NegativePROT UA NEGATIVEBL UA NE GATIVEUA NENO NegativeTime performed: 0303UA NITRITE DIPSTICK [id number] 16:44:00* Test Item Value Reference Range Comments UA NITRITE DIPSTICK POC (test code=NITUP) Negative Negative UA GLU: NEGATIVEKET UA 5 (Trace)PH UA 7.0UA NIT NegativePROT UA NEGATIVEBL UA NE GATIVEUA NENO NegativeTime performed: 0303UA LEUKOCYTE ESTERASE [id number] 16:44:00* Test Item Value Reference Range Comments UA LEUKOCYTE ESTERASE POC (test code=LEUUPOC) NEGATIVE UA GLU: NEGATIVEKET UA 5 (Trace)PH UA 7.0UA NIT NegativePROT UA NEGATIVEBL UA NE GATIVEUA NENO NegativeTime performed: 0303UA GLUCOSE DIPSTIC [id number] 16:44:00* Test Item Value Reference Range Comments UA GLUCOSE DIPSTIC POC (test code=GLUUP) Negative Negative UA GLU: NEGATIVEKET UA 5 (Trace)PH UA 7.0UA NIT NegativePROT UA NEGATIVEBL UA NE GATIVEUA NENO NegativeTime performed: 0303UA KETONE DIPSTICK [id number] 16:44:00* Test Item Value Reference Range Comments UA KETONE DIPSTICK POC (test code=KETUP) 5 Negative UA GLU: NEGATIVEKET UA 5 (Trace)PH UA 7.0UA NIT NegativePROT UA NEGATIVEBL UA NE GATIVEUA NENO NegativeTime performed: 0303UA BLOOD DIPSTIC [id number] 16:44:00 * Test Item Value Reference Range Comments UA BLOOD DIPSTIC POC (test code=BLUP) Negative NEGATIVE UA GLU: NEGATIVEKET UA 5 (Trace)PH UA 7.0UA NIT NegativePROT UA NEGATIVEBL UA NE GATIVEUA NENO NegativeTime performed: 0303UA PH DIPSTIC [id number] 16:44:00* Test Item Value Reference Range Comments UA PH DIPSTIC POC (test code=PHUP) 7 5-8 UA GLU: NEGATIVEKET UA 5 (Trace)PH UA 7.0UA NIT NegativePROT UA NEGATIVEBL UA NE GATIVEUA NENO NegativeTime performed: 0303UA PROTEIN DIPSTICK [id number] 16:44:00* Test Item Value Reference Range Comments UA PROTEIN DIPSTICK POC (test code=DPROUP) Negative Neg -15 UA GLU: NEGATIVEKET UA 5 (Trace)PH UA 7.0UA NIT NegativePROT UA NEGATIVEBL UA NE GATIVEUA NENO NegativeTime performed: 0303UA NITRITE DIPSTICK [id number] 16:44:00* Test Item Value Reference Range Comments UA NITRITE DIPSTICK POC (test code=NITUP) Negative Negative UA GLU: NEGATIVEKET UA 5 (Trace)PH UA 7.0UA NIT NegativePROT UA NEGATIVEBL UA NE GATIVEUA NENO NegativeTime performed: 0303UA LEUKOCYTE ESTERASE [id number] 16:44:00* Test Item Value Reference Range Comments UA LEUKOCYTE ESTERASE POC (test code=LEUUPOC) NEGATIVE NEGATIVE UA GLU: NEGATIVEKET UA 5 (Trace)PH UA 7.0UA NIT NegativePROT UA NEGATIVEBL UA NE GATIVEUA NENO NegativeTime performed: 0303AG STREP GROUP [id number] 15:12:00* Test Item Value Reference Range Comments AG STREP GROUP B (test code=STREPB) Negative Negative Centers for Disease Control and Prevention (CDC) andAmerican Congress of Obstetricians and Gynecologists (ACOG)guidelines for prevention of group Bstreptococcal (GBS) disease specify co-collection of avaginal and rectal swab specimen to maximize sensitivity ofGBS detection. Per the CDC and ACOG, swabbing both thelower vagina and rectum substantially increases the yieldof detection compared with sampling the vagina alone.Penicillin G, ampicillin, or cefazolin are indicated forintrapartum prophylaxis of GBS colonization.Reflex susceptibility testing should be performed prior touse of clindamycin only on GBS isolates from penicillin-allergic women who are considered a high risk foranaphylaxis. Treatment with vancomycin without additionaltesting is warranted if resistance to clindamycin is noted.Performed At: [facility] [id number] Valdovinos MD Ph:[phone] SPECIMEN COMMENTS: GBS SWAB LCI#[id number] TO BUILDER'S LABOURER: SOURCE:VAGINAL/R ECTALHIV 1 2 COMBO AG/AB [id number] 20:30:00* Test Item Value Reference Range Comments HIV 1 2 COMBO AG/AB SCREEN (test code=CCC30HXQWV) AB/AG NON REACTIVE NONREACTIVE NONREACTIVE HIV P24 ANTIGEN NONREACTIVE NONREACTIVE HIV 1&2 ANTIBODY NONREACTIVE THE HIV-1 P24 TEST HELPS DISTINGUISH ACUTE HIV- 1INFECTIONFROM ESTABLISHED HIV-1 INFECTION WHEN THE SPECIMEN ISPOSITIVE FOR HIV- 1 P24 ANTIGEN. HIV-1 P24 ANTIGEN IS HIGHEST IN THE FIRST FEW WEEKS AFTERINFECTION AG HEPAT B [id number] 19:24:00* Test Item Value Reference Range Comments AG HEPAT B SURF (test code=HBSAG) Nonreactive Index Nonreactive AB [id number] 19:24:00* Test Item Value Reference Range Comments AB TREPONEMA (test code=TREPAB) Nonreactive Index NonReactive CBC W/AUTO [id number] 19:01:00* Test Item Value Reference Range Comments WHITE BLOOD CELL (test code=WBC) 8.7 K/mm3 4.5-12.5 RED BLOOD CELL (test code=RBC) 3.68 mill/mm3 3.7-5.2 HEMOGLOBIN (test code=HGB) 7.9 gram/dL 11.5-15.5 HEMATOCRIT (test code=HCT) 26.8 % 36.0-46.0 MEAN CELL VOLUME (test code=MCV) 72.8 fL 80-98 MEAN CELL HGB (test code=MCH) 21.5 picogram 27.0-33.0 MEAN CELL HGB CONCETRATION (test code=MCHC) 29.5 gram/dL 33.0-36.0 RED CELL DISTRIBUTION WIDTH (test code=RDW) 15.0 % 11.6-16.2 RED CELL DISTRIBUTION WIDTH SD (test code=RDW-SD) 39.9 fL 37.0-51.0 PLATELET COUNT (test code=PLT) 349 K/mm3 150-450 MEAN PLATELET VOLUME (test code=MPV) 10.7 fL 6.7-11.0 NEUTROPHIL % (test code=NT%) 75.0 % 39.0-69.0 IMMATURE GRANULOCYTE % (test code=IG%) 0.5 % 0.0-5.0 LYMPHOCYTE % (test code=LY%) 19.4 % 25.0-55.0 MONOCYTE % (test code=MO%) 4.6 % 0.0-10.0 EOSINOPHIL % (test code=EO%) 0.3 % 0.0-5.0 BASOPHIL % (test code=BA%) 0.2 % 0.0-1.0 NUCLEATED RBC % (test code=NRBC%) 0.0 % 0-0 NEUTROPHIL # (test code=NT#) 6.54 K/mm3 1.8-7.7 IMMATURE GRANULOCYTE # (test code=IG#) 0.04 x10 3/uL 0-0.03 LYMPHOCYTE # (test code=LY#) 1.69 K/mm3 1.0-5.0 MONOCYTE # (test code=MO#) 0.40 K/mm3 0-0.8 EOSINOPHIL # (test code=EO#) 0.03 K/mm3 0.0-0.5 BASOPHIL # (test code=BA#) 0.02 K/mm3 0.0-0.2 NUCLEATED RBC # (test code=NRBC#) 0.00 K/mm3 0.0-0.1 MANUAL DIFF REQUIRED (test code=MDIFF) NO, ONLY SCAN NEEDED DIFFERENTIAL [id number] 19:01:00* Test Item Value Reference Range Comments STAIN ACCEPTABILITY (test code=STN ACCEPTABLE) STAIN ACCEPTABLE HYPOCHROMIA (test code=HYPO) 1+ POIKILOCYTOSIS (test code=POIK) 1+ ANISOCYTOSIS (test code=ANISO) 1+ MICROCYTOSIS (test code=MICR) 1+ PLATELET ESTIMATE (test code=PLTEST) ADEQUATE PLATELET MORPHOLOGY (test code=PLTMORPH) SIZE VARIABLE URINALYSIS [id number] 18:27:00* Test Item Value Reference Range Comments UA COLOR (test code=COLU) Light-Yellow YELLOW UA APPEARANCE (test code=APPU) CLEAR CLEAR UA GLUCOSE DIPSTICK (test code=DGLUU) NEGATIVE mg/dL NEGATIVE UA BILIRUBIN DIPSTICK (test code=BILU) NEGATIVE mg/dL NEGATIVE UA KETONE DIPSTICK (test code=KETU) NEGATIVE mg/dL NEGATIVE UA SPECIFIC GRAVITY (test code=SGU) 1.020 1.001-1.035 UA BLOOD DIPSTICK (test code=MARIA [place] ROSARIO) 0.2 mg/dL (2+) mg/dL NEGATIVE UA PH DIPSTICK (test code=SPIKE) 6.5 5.0-8.0 UA PROTEIN DIPSTICK (test code=PROU) 10 (Trace) mg/dL NEGATIVE UA UROBILINIOGEN DIPSTICK (test code=URO) Normal mg/dL NEGATIVE UA NITRITE DIPSTICK (test code=MARGARET) NEGATIVE NEGATIVE UA LEUKOCYTE ESTERASE W REFLEX (test code=LEUUR) 75 Neno/uL (1+) Neno/uL NEGATIVE UA WBC (test code=WBCU) 6-10 per HPF 0-5 UA RBC (test code=RBCU) 0-2 #/HPF 0-5 UA EPITHELIAL CELLS (test code=EPIU) FEW per HPF FEW UA BACTERIA (test code=BACU) FEW #/HPF NONE UA MUCUS (test code=MUCU) FEW #/LPF FEW URINALYSIS [id number] 18:16:00* Test Item Value Reference Range Comments UA COLOR (test code=COLU) Light-Yellow YELLOW UA APPEARANCE (test code=APPU) CLEAR CLEAR UA GLUCOSE DIPSTICK (test code=DGLUU) NEGATIVE mg/dL NEGATIVE UA BILIRUBIN DIPSTICK (test code=BILU) NEGATIVE mg/dL NEGATIVE UA KETONE DIPSTICK (test code=KETU) NEGATIVE mg/dL NEGATIVE UA SPECIFIC GRAVITY (test code=SGU) 1.020 1.001-1.035 UA BLOOD DIPSTICK (test code=MARIA [place] ROS[place]IO) 0.2 mg/dL (2+) mg/dL NEGATIVE UA PH DIPSTICK (test code=SPIKE) 6.5 5.0-8.0 UA PROTEIN DIPSTICK (test code=PROU) 10 (Trace) mg/dL NEGATIVE UA UROBILINIOGEN DIPSTICK (test code=URO) Normal mg/dL NEGATIVE UA NITRITE DIPSTICK (test code=MARGARET) NEGATIVE NEGATIVE UA LEUKOCYTE ESTERASE W REFLEX (test code=LEUUR) 75 Neno/uL (1+) Neno/uL NEGATIVE UA WBC (test code=WBCU) per HPF 0-5 UA RBC (test code=RBCU) per HPF 0-5 UA EPITHELIAL CELLS (test code=EPIU) per HPF Few UA BACTERIA (test code=BACU) per HPF NONE URINALYSIS [id number] 18:16:00* Test Item Value Reference Range Comments UA COLOR (test code=COLU) Light-Yellow YELLOW UA APPEARANCE (test code=APPU) CLEAR CLEAR UA GLUCOSE DIPSTICK (test code=DGLUU) NEGATIVE mg/dL NEGATIVE UA BILIRUBIN DIPSTICK (test code=BILU) NEGATIVE mg/dL NEGATIVE UA KETONE DIPSTICK (test code=KETU) NEGATIVE mg/dL NEGATIVE UA SPECIFIC GRAVITY (test code=SGU) 1.020 1.001-1.035 UA BLOOD DIPSTICK (test code=MARIA [place] ROS[place]) 0.2 mg/dL (2+) mg/dL NEGATIVE UA PH DIPSTICK (test code=SPIKE) 6.5 5.0-8.0 UA PROTEIN DIPSTICK (test code=PROU) 10 (Trace) mg/dL NEGATIVE UA UROBILINIOGEN DIPSTICK (test code=URO) Normal mg/dL NEGATIVE UA NITRITE DIPSTICK (test code=MARGARET) NEGATIVE NEGATIVE UA LEUKOCYTE ESTERASE W REFLEX (test code=LEUUR) 75 Neno/uL (1+) Neno/uL NEGATIVE UA WBC (test code=WBCU) per HPF 0-5 UA RBC (test code=RBCU) per HPF 0-5 UA EPITHELIAL CELLS (test code=EPIU) per HPF Few UA BACTERIA (test code=BACU) per HPF NONE CBC W/AUTO [id number] 18:09:00* Test Item Value Reference Range Comments WHITE BLOOD CELL (test code=WBC) 8.7 K/mm3 4.5-12.5 RED BLOOD CELL (test code=RBC) 3.68 mill/mm3 3.7-5.2 HEMOGLOBIN (test code=HGB) 7.9 gram/dL 11.5-15.5 HEMATOCRIT (test code=HCT) 26.8 % 36.0-46.0 MEAN CELL VOLUME (test code=MCV) 72.8 fL 80-98 MEAN CELL HGB (test code=MCH) 21.5 picogram 27.0-33.0 MEAN CELL HGB CONCETRATION (test code=MCHC) 29.5 gram/dL 33.0-36.0 RED CELL DISTRIBUTION WIDTH (test code=RDW) 15.0 % 11.6-16.2 RED CELL DISTRIBUTION WIDTH SD (test code=RDW-SD) 39.9 fL 37.0-51.0 PLATELET COUNT (test code=PLT) 349 K/mm3 150-450 MEAN PLATELET VOLUME (test code=MPV) 10.7 fL 6.7-11.0 NEUTROPHIL % (test code=NT%) 75.0 % 39.0-69.0 IMMATURE GRANULOCYTE % (test code=IG%) 0.5 % 0.0-5.0 LYMPHOCYTE % (test code=LY%) 19.4 % 25.0-55.0 MONOCYTE % (test code=MO%) 4.6 % 0.0-10.0 EOSINOPHIL % (test code=EO%) 0.3 % 0.0-5.0 BASOPHIL % (test code=BA%) 0.2 % 0.0-1.0 NUCLEATED RBC % (test code=NRBC%) 0.0 % 0-0 NEUTROPHIL # (test code=NT#) 6.54 K/mm3 1.8-7.7 IMMATURE GRANULOCYTE # (test code=IG#) 0.04 x10 3/uL 0-0.03 LYMPHOCYTE # (test code=LY#) 1.69 K/mm3 1.0-5.0 MONOCYTE # (test code=MO#) 0.40 K/mm3 0-0.8 EOSINOPHIL # (test code=EO#) 0.03 K/mm3 0.0-0.5 BASOPHIL # (test code=BA#) 0.02 K/mm3 0.0-0.2 NUCLEATED RBC # (test code=NRBC#) 0.00 K/mm3 0.0-0.1 MANUAL DIFF REQUIRED (test code=MDIFF) NO, ONLY SCAN NEEDED DIFFERENTIAL [id number] 18:09:00* Test Item Value Reference Range Comments STAIN ACCEPTABILITY (test code=STN ACCEPTABLE) CABOT RINGS (test code=CAB) MORPHOLOGY COMMENT (test code=MOC) PLATELET ESTIMATE (test code=PLTEST) PLATELET MORPHOLOGY (test code=PLTMORPH) CBC W/AUTO [id number] 18:09:00* Test Item Value Reference Range Comments WHITE BLOOD CELL (test code=WBC) 8.7 K/mm3 4.5-12.5 RED BLOOD CELL (test code=RBC) 3.68 mill/mm3 3.7-5.2 HEMOGLOBIN (test code=HGB) 7.9 gram/dL 11.5-15.5 HEMATOCRIT (test code=HCT) 26.8 % 36.0-46.0 MEAN CELL VOLUME (test code=MCV) 72.8 fL 80-98 MEAN CELL HGB (test code=MCH) 21.5 picogram 27.0-33.0 MEAN CELL HGB CONCETRATION (test code=MCHC) 29.5 gram/dL 33.0-36.0 RED CELL DISTRIBUTION WIDTH (test code=RDW) 15.0 % 11.6-16.2 RED CELL DISTRIBUTION WIDTH SD (test code=RDW-SD) 39.9 fL 37.0-51.0 PLATELET COUNT (test code=PLT) 349 K/mm3 150-450 MEAN PLATELET VOLUME (test code=MPV) 10.7 fL 6.7-11.0 NEUTROPHIL % (test code=NT%) 75.0 % 39.0-69.0 IMMATURE GRANULOCYTE % (test code=IG%) 0.5 % 0.0-5.0 LYMPHOCYTE % (test code=LY%) 19.4 % 25.0-55.0 MONOCYTE % (test code=MO%) 4.6 % 0.0-10.0 EOSINOPHIL % (test code=EO%) 0.3 % 0.0-5.0 BASOPHIL % (test code=BA%) 0.2 % 0.0-1.0 NUCLEATED RBC % (test code=NRBC%) 0.0 % 0-0 NEUTROPHIL # (test code=NT#) 6.54 K/mm3 1.8-7.7 IMMATURE GRANULOCYTE # (test code=IG#) 0.04 x10 3/uL 0-0.03 LYMPHOCYTE # (test code=LY#) 1.69 K/mm3 1.0-5.0 MONOCYTE # (test code=MO#) 0.40 K/mm3 0-0.8 EOSINOPHIL # (test code=EO#) 0.03 K/mm3 0.0-0.5 BASOPHIL # (test code=BA#) 0.02 K/mm3 0.0-0.2 NUCLEATED RBC # (test code=NRBC#) 0.00 K/mm3 0.0-0.1 MANUAL DIFF REQUIRED (test code=MDIFF) NO, ONLY SCAN NEEDED DIFFERENTIAL [id number] 18:09:00* Test Item Value Reference Range Comments STAIN ACCEPTABILITY (test code=STN ACCEPTABLE) CABOT RINGS (test code=CAB) MORPHOLOGY COMMENT (test code=MOC) PLATELET ESTIMATE (test code=PLTEST) PLATELET MORPHOLOGY (test code=PLTMORPH) CBC W/AUTO [id number] 18:09:00* Test Item Value Reference Range Comments WHITE BLOOD CELL (test code=WBC) 8.7 K/mm3 4.5-12.5 RED BLOOD CELL (test code=RBC) 3.68 mill/mm3 3.7-5.2 HEMOGLOBIN (test code=HGB) 7.9 gram/dL 11.5-15.5 HEMATOCRIT (test code=HCT) 26.8 % 36.0-46.0 MEAN CELL VOLUME (test code=MCV) 72.8 fL 80-98 MEAN CELL HGB (test code=MCH) 21.5 picogram 27.0-33.0 MEAN CELL HGB CONCETRATION (test code=MCHC) 29.5 gram/dL 33.0-36.0 RED CELL DISTRIBUTION WIDTH (test code=RDW) 15.0 % 11.6-16.2 RED CELL DISTRIBUTION WIDTH SD (test code=RDW-SD) 39.9 fL 37.0-51.0 PLATELET COUNT (test code=PLT) 349 K/mm3 150-450 MEAN PLATELET VOLUME (test code=MPV) 10.7 fL 6.7-11.0 NEUTROPHIL % (test code=NT%) 75.0 % 39.0-69.0 IMMATURE GRANULOCYTE % (test code=IG%) 0.5 % 0.0-5.0 LYMPHOCYTE % (test code=LY%) 19.4 % 25.0-55.0 MONOCYTE % (test code=MO%) 4.6 % 0.0-10.0 EOSINOPHIL % (test code=EO%) 0.3 % 0.0-5.0 BASOPHIL % (test code=BA%) 0.2 % 0.0-1.0 NUCLEATED RBC % (test code=NRBC%) 0.0 % 0-0 NEUTROPHIL # (test code=NT#) 6.54 K/mm3 1.8-7.7 IMMATURE GRANULOCYTE # (test code=IG#) 0.04 x10 3/uL 0-0.03 LYMPHOCYTE # (test code=LY#) 1.69 K/mm3 1.0-5.0 MONOCYTE # (test code=MO#) 0.40 K/mm3 0-0.8 EOSINOPHIL # (test code=EO#) 0.03 K/mm3 0.0-0.5 BASOPHIL # (test code=BA#) 0.02 K/mm3 0.0-0.2 NUCLEATED RBC # (test code=NRBC#) 0.00 K/mm3 0.0-0.1 MANUAL DIFF REQUIRED (test code=MDIFF) NO, ONLY SCAN NEEDED DIFFERENTIAL [id number] 18:09:00* Test Item Value Reference Range Comments STAIN ACCEPTABILITY (test code=STN ACCEPTABLE) MORPHOLOGY COMMENT (test code=MOC) PLATELET ESTIMATE (test code=PLTEST) PLATELET MORPHOLOGY (test code=PLTMORPH) CBC W/AUTO [id number] 18:09:00* Test Item Value Reference Range Comments WHITE BLOOD CELL (test code=WBC) 8.7 K/mm3 4.5-12.5 RED BLOOD CELL (test code=RBC) 3.68 mill/mm3 3.7-5.2 HEMOGLOBIN (test code=HGB) 7.9 gram/dL 11.5-15.5 HEMATOCRIT (test code=HCT) 26.8 % 36.0-46.0 MEAN CELL VOLUME (test code=MCV) 72.8 fL 80-98 MEAN CELL HGB (test code=MCH) 21.5 picogram 27.0-33.0 MEAN CELL HGB CONCETRATION (test code=MCHC) 29.5 gram/dL 33.0-36.0 RED CELL DISTRIBUTION WIDTH (test code=RDW) 15.0 % 11.6-16.2 RED CELL DISTRIBUTION WIDTH SD (test code=RDW-SD) 39.9 fL 37.0-51.0 PLATELET COUNT (test code=PLT) 349 K/mm3 150-450 MEAN PLATELET VOLUME (test code=MPV) 10.7 fL 6.7-11.0 NEUTROPHIL % (test code=NT%) 75.0 % 39.0-69.0 IMMATURE GRANULOCYTE % (test code=IG%) 0.5 % 0.0-5.0 LYMPHOCYTE % (test code=LY%) 19.4 % 25.0-55.0 MONOCYTE % (test code=MO%) 4.6 % 0.0-10.0 EOSINOPHIL % (test code=EO%) 0.3 % 0.0-5.0 BASOPHIL % (test code=BA%) 0.2 % 0.0-1.0 NUCLEATED RBC % (test code=NRBC%) 0.0 % 0-0 NEUTROPHIL # (test code=NT#) 6.54 K/mm3 1.8-7.7 IMMATURE GRANULOCYTE # (test code=IG#) 0.04 x10 3/uL 0-0.03 LYMPHOCYTE # (test code=LY#) 1.69 K/mm3 1.0-5.0 MONOCYTE # (test code=MO#) 0.40 K/mm3 0-0.8 EOSINOPHIL # (test code=EO#) 0.03 K/mm3 0.0-0.5 BASOPHIL # (test code=BA#) 0.02 K/mm3 0.0-0.2 NUCLEATED RBC # (test code=NRBC#) 0.00 K/mm3 0.0-0.1 MANUAL DIFF REQUIRED (test code=MDIFF) NO, ONLY SCAN NEEDED DIFFERENTIAL [id number] 18:09:00* Test Item Value Reference Range Comments STAIN ACCEPTABILITY (test code=STN ACCEPTABLE) CABOT RINGS (test code=CAB) MORPHOLOGY COMMENT (test code=MOC) PLATELET ESTIMATE (test code=PLTEST) PLATELET MORPHOLOGY (test code=PLTMORPH) UA GLUCOSE DIPSTIC [id number] 15:27:00* Test Item Value Reference Range Comments UA GLUCOSE DIPSTIC POC (test code=GLUUP) Negative Negative UA GLU: NEGATIVEKET UA NEGATIVEPH UA 6.0UA NIT NegativePROT UA 15 (TRACE)BL UA N EGATIVEUA NENO NegativeTime performed: [id number] KETONE DIPSTICK [id number] 15:27:00* Test Item Value Reference Range Comments UA KETONE DIPSTICK POC (test code=KETUP) Negative UA GLU: NEGATIVEKET UA NEGATIVEPH UA 6.0UA NIT NegativePROT UA 15 (TRACE)BL UA N EGATIVEUA NENO NegativeTime performed: [id number] BLOOD DIPSTIC [id number] 15:27:00* Test Item Value Reference Range Comments UA BLOOD DIPSTIC POC (test code=BLUP) NEGATIVE UA GLU: NEGATIVEKET UA NEGATIVEPH UA 6.0UA NIT NegativePROT UA 15 (TRACE)BL UA N EGATIVEUA NENO NegativeTime performed: 219UA PH DIPSTIC [id number] 15:27:00* Test Item Value Reference Range Comments UA PH DIPSTIC POC (test code=PHUP) 5-8 UA GLU: NEGATIVEKET UA NEGATIVEPH UA 6.0UA NIT NegativePROT UA 15 (TRACE)BL UA N EGATIVEUA NENO NegativeTime performed: 219UA PROTEIN DIPSTICK [id number] 15:27:00* Test Item Value Reference Range Comments UA PROTEIN DIPSTICK POC (test code=DPROUP) Neg -15 UA GLU: NEGATIVEKET UA NEGATIVEPH UA 6.0UA NIT NegativePROT UA 15 (TRACE)BL UA N EGATIVEUA NENO NegativeTime performed: 219UA NITRITE DIPSTICK [id number] 15:27:00* Test Item Value Reference Range Comments UA NITRITE DIPSTICK POC (test code=NITUP) Negative UA GLU: NEGATIVEKET UA NEGATIVEPH UA 6.0UA NIT NegativePROT UA 15 (TRACE)BL UA N EGATIVEUA NENO NegativeTime performed: 219UA LEUKOCYTE ESTERASE [id number] 15:27:00* Test Item Value Reference Range Comments UA LEUKOCYTE ESTERASE POC (test code=LEUUPOC) NEGATIVE UA GLU: NEGATIVEKET UA NEGATIVEPH UA 6.0UA NIT NegativePROT UA 15 (TRACE)BL UA N EGATIVEUA NENO NegativeTime performed: GLUCOSE DIPSTIC [id number] 15:27:00* Test Item Value Reference Range Comments UA GLUCOSE DIPSTIC POC (test code=GLUUP) Negative Negative UA GLU: NEGATIVEKET UA NEGATIVEPH UA 6.0UA NIT NegativePROT UA 15 (TRACE)BL UA N EGATIVEUA NENO NegativeTime performed: 219UA KETONE DIPSTICK [id number] 15:27:00* Test Item Value Reference Range Comments UA KETONE DIPSTICK POC (test code=KETUP) Negative Negative UA GLU: NEGATIVEKET UA NEGATIVEPH UA 6.0UA NIT NegativePROT UA 15 (TRACE)BL UA N EGATIVEUA NENO NegativeTime performed: 219UA BLOOD DIPSTIC [id number] 15:27:00* Test Item Value Reference Range Comments UA BLOOD DIPSTIC POC (test code=BLUP) NEGATIVE UA GLU: NEGATIVEKET UA NEGATIVEPH UA 6.0UA NIT NegativePROT UA 15 (TRACE)BL UA N EGATIVEUA NENO NegativeTime performed: 219UA PH DIPSTIC [id number] 15:27:00* Test Item Value Reference Range Comments UA PH DIPSTIC POC (test code=PHUP) 5-8 UA GLU: NEGATIVEKET UA NEGATIVEPH UA 6.0UA NIT NegativePROT UA 15 (TRACE)BL UA N EGATIVEUA NENO NegativeTime performed: 219UA PROTEIN DIPSTICK [id number] 15:27:00* Test Item Value Reference Range Comments UA PROTEIN DIPSTICK POC (test code=DPROUP) Neg -15 UA GLU: NEGATIVEKET UA NEGATIVEPH UA 6.0UA NIT NegativePROT UA 15 (TRACE)BL UA N EGATIVEUA NENO NegativeTime performed: 219UA NITRITE DIPSTICK [id number] 15:27:00* Test Item Value Reference Range Comments UA NITRITE DIPSTICK POC (test code=NITUP) Negative UA GLU: NEGATIVEKET UA NEGATIVEPH UA 6.0UA NIT NegativePROT UA 15 (TRACE)BL UA N EGATIVEUA NENO NegativeTime performed: 219UA LEUKOCYTE ESTERASE [id number] 15:27:00* Test Item Value Reference Range Comments UA LEUKOCYTE ESTERASE POC (test code=LEUUPOC) NEGATIVE UA GLU: NEGATIVEKET UA NEGATIVEPH UA 6.0UA NIT NegativePROT UA 15 (TRACE)BL UA N EGATIVEUA NENO NegativeTime performed: 219UA GLUCOSE DIPSTIC [id number] 15:27:00* Test Item Value Reference Range Comments UA GLUCOSE DIPSTIC POC (test code=GLUUP) Negative Negative UA GLU: NEGATIVEKET UA NEGATIVEPH UA 6.0UA NIT NegativePROT UA 15 (TRACE)BL UA N EGATIVEUA NENO NegativeTime performed: 219UA KETONE DIPSTICK [id number] 15:27:00* Test Item Value Reference Range Comments UA KETONE DIPSTICK POC (test code=KETUP) Negative Negative UA GLU: NEGATIVEKET UA NEGATIVEPH UA 6.0UA NIT NegativePROT UA 15 (TRACE)BL UA N EGATIVEUA NENO NegativeTime performed: 219UA BLOOD DIPSTIC [id number] 15:27:00* Test Item Value Reference Range Comments UA BLOOD DIPSTIC POC (test code=BLUP) Negative NEGATIVE UA GLU: NEGATIVEKET UA NEGATIVEPH UA 6.0UA NIT NegativePROT UA 15 (TRACE)BL UA N EGATIVEUA NENO NegativeTime performed: PH DIPSTIC [id number] 15:27:00* Test Item Value Reference Range Comments UA PH DIPSTIC POC (test code=PHUP) 5-8 UA GLU: NEGATIVEKET UA NEGATIVEPH UA 6.0UA NIT NegativePROT UA 15 (TRACE)BL UA N EGATIVEUA NENO NegativeTime performed: 219UA PROTEIN DIPSTICK [id number] 15:27:00* Test Item Value Reference Range Comments UA PROTEIN DIPSTICK POC (test code=DPROUP) Neg -15 UA GLU: NEGATIVEKET UA NEGATIVEPH UA 6.0UA NIT NegativePROT UA 15 (TRACE)BL UA N EGATIVEUA NENO NegativeTime performed: 219UA NITRITE DIPSTICK [id number] 15:27:00* Test Item Value Reference Range Comments UA NITRITE DIPSTICK POC (test code=NITUP) Negative UA GLU: NEGATIVEKET UA NEGATIVEPH UA 6.0UA NIT NegativePROT UA 15 (TRACE)BL UA N EGATIVEUA NENO NegativeTime performed: 219UA LEUKOCYTE ESTERASE [id number] 15:27:00* Test Item Value Reference Range Comments UA LEUKOCYTE ESTERASE POC (test code=LEUUPOC) NEGATIVE UA GLU: NEGATIVEKET UA NEGATIVEPH UA 6.0UA NIT NegativePROT UA 15 (TRACE)BL UA N EGATIVEUA NENO NegativeTime performed: 219UA GLUCOSE DIPSTIC [id number] 15:27:00* Test Item Value Reference Range Comments UA GLUCOSE DIPSTIC POC (test code=GLUUP) Negative Negative UA GLU: NEGATIVEKET UA NEGATIVEPH UA 6.0UA NIT NegativePROT UA 15 (TRACE)BL UA N EGATIVEUA NENO NegativeTime performed: 219UA KETONE DIPSTICK [id number] 15:27:00* Test Item Value Reference Range Comments UA KETONE DIPSTICK POC (test code=KETUP) Negative Negative UA GLU: NEGATIVEKET UA NEGATIVEPH UA 6.0UA NIT NegativePROT UA 15 (TRACE)BL UA N EGATIVEUA NENO NegativeTime performed: BLOOD DIPSTIC [id number] 15:27:00* Test Item Value Reference Range Comments UA BLOOD DIPSTIC POC (test code=BLUP) Negative NEGATIVE UA GLU: NEGATIVEKET UA NEGATIVEPH UA 6.0UA NIT NegativePROT UA 15 (TRACE)BL UA N EGATIVEUA NENO NegativeTime performed: PH DIPSTIC [id number] 15:27:00* Test Item Value Reference Range Comments UA PH DIPSTIC POC (test code=PHUP) 6 5-8 UA GLU: NEGATIVEKET UA NEGATIVEPH UA 6.0UA NIT NegativePROT UA 15 (TRACE)BL UA N EGATIVEUA NENO NegativeTime performed: 219UA PROTEIN DIPSTICK [id number] 15:27:00* Test Item Value Reference Range Comments UA PROTEIN DIPSTICK POC (test code=DPROUP) Neg -15 UA GLU: NEGATIVEKET UA NEGATIVEPH UA 6.0UA NIT NegativePROT UA 15 (TRACE)BL UA N EGATIVEUA NENO NegativeTime performed: NITRITE DIPSTICK [id number] 15:27:00* Test Item Value Reference Range Comments UA NITRITE DIPSTICK POC (test code=NITUP) Negative UA GLU: NEGATIVEKET UA NEGATIVEPH UA 6.0UA NIT NegativePROT UA 15 (TRACE)BL UA N EGATIVEUA NENO NegativeTime performed: 219UA LEUKOCYTE ESTERASE [id number] 15:27:00* Test Item Value Reference Range Comments UA LEUKOCYTE ESTERASE POC (test code=LEUUPOC) NEGATIVE UA GLU: NEGATIVEKET UA NEGATIVEPH UA 6.0UA NIT NegativePROT UA 15 (TRACE)BL UA N EGATIVEUA NENO NegativeTime performed: GLUCOSE DIPSTIC [id number] 15:27:00* Test Item Value Reference Range Comments UA GLUCOSE DIPSTIC POC (test code=GLUUP) Negative Negative UA GLU: NEGATIVEKET UA NEGATIVEPH UA 6.0UA NIT NegativePROT UA 15 (TRACE)BL UA N EGATIVEUA NENO NegativeTime performed: KETONE DIPSTICK [id number] 15:27:00* Test Item Value Reference Range Comments UA KETONE DIPSTICK POC (test code=KETUP) Negative Negative UA GLU: NEGATIVEKET UA NEGATIVEPH UA 6.0UA NIT NegativePROT UA 15 (TRACE)BL UA N EGATIVEUA NENO NegativeTime performed: BLOOD DIPSTIC [id number] 15:27:00* Test Item Value Reference Range Comments UA BLOOD DIPSTIC POC (test code=BLUP) Negative NEGATIVE UA GLU: NEGATIVEKET UA NEGATIVEPH UA 6.0UA NIT NegativePROT UA 15 (TRACE)BL UA N EGATIVEUA NENO NegativeTime performed: 219UA PH DIPSTIC [id number] 15:27:00* Test Item Value Reference Range Comments UA PH DIPSTIC POC (test code=PHUP) 6 5-8 UA GLU: NEGATIVEKET UA NEGATIVEPH UA 6.0UA NIT NegativePROT UA 15 (TRACE)BL UA N EGATIVEUA NENO NegativeTime performed: 219UA PROTEIN DIPSTICK [id number] 15:27:00* Test Item Value Reference Range Comments UA PROTEIN DIPSTICK POC (test code=DPROUP) 15 (Trace) Neg -15 UA GLU: NEGATIVEKET UA NEGATIVEPH UA 6.0UA NIT NegativePROT UA 15 (TRACE)BL UA N EGATIVEUA NENO NegativeTime performed: 219UA NITRITE DIPSTICK [id number] 15:27:00* Test Item Value Reference Range Comments UA NITRITE DIPSTICK POC (test code=NITUP) Negative UA GLU: NEGATIVEKET UA NEGATIVEPH UA 6.0UA NIT NegativePROT UA 15 (TRACE)BL UA N EGATIVEUA NENO NegativeTime performed: 219UA LEUKOCYTE ESTERASE [id number] 15:27:00* Test Item Value Reference Range Comments UA LEUKOCYTE ESTERASE POC (test code=LEUUPOC) NEGATIVE UA GLU: NEGATIVEKET UA NEGATIVEPH UA 6.0UA NIT NegativePROT UA 15 (TRACE)BL UA N EGATIVEUA NENO NegativeTime performed: 219UA GLUCOSE DIPSTIC [id number] 15:27:00* Test Item Value Reference Range Comments UA GLUCOSE DIPSTIC POC (test code=GLUUP) Negative Negative UA GLU: NEGATIVEKET UA NEGATIVEPH UA 6.0UA NIT NegativePROT UA 15 (TRACE)BL UA N EGATIVEUA NENO NegativeTime performed: 219UA KETONE DIPSTICK [id number] 15:27:00* Test Item Value Reference Range Comments UA KETONE DIPSTICK POC (test code=KETUP) Negative Negative UA GLU: NEGATIVEKET UA NEGATIVEPH UA 6.0UA NIT NegativePROT UA 15 (TRACE)BL UA N EGATIVEUA NENO NegativeTime performed: 0220UA BLOOD DIPSTIC [id number] 15:27:00* Test Item Value Reference Range Comments UA BLOOD DIPSTIC POC (test code=BLUP) Negative NEGATIVE UA GLU: NEGATIVEKET UA NEGATIVEPH UA 6.0UA NIT NegativePROT UA 15 (TRACE)BL UA N EGATIVEUA NENO NegativeTime performed: PH DIPSTIC [id number] 15:27:00* Test Item Value Reference Range Comments UA PH DIPSTIC POC (test code=PHUP) 6 5-8 UA GLU: NEGATIVEKET UA NEGATIVEPH UA 6.0UA NIT NegativePROT UA 15 (TRACE)BL UA N EGATIVEUA NENO NegativeTime performed: PROTEIN DIPSTICK [id number] 15:27:00* Test Item Value Reference Range Comments UA PROTEIN DIPSTICK POC (test code=DPROUP) 15 (Trace) Neg -15 UA GLU: NEGATIVEKET UA NEGATIVEPH UA 6.0UA NIT NegativePROT UA 15 (TRACE)BL UA N EGATIVEUA NENO NegativeTime performed: NITRITE DIPSTICK [id number] 15:27:00* Test Item Value Reference Range Comments UA NITRITE DIPSTICK POC (test code=NITUP) Negative Negative UA GLU: NEGATIVEKET UA NEGATIVEPH UA 6.0UA NIT NegativePROT UA 15 (TRACE)BL UA N EGATIVEUA NENO NegativeTime performed: LEUKOCYTE ESTERASE [id number] 15:27:00* Test Item Value Reference Range Comments UA LEUKOCYTE ESTERASE POC (test code=LEUUPOC) NEGATIVE UA GLU: NEGATIVEKET UA NEGATIVEPH UA 6.0UA NIT NegativePROT UA 15 (TRACE)BL UA N EGATIVEUA NENO NegativeTime performed: GLUCOSE DIPSTIC [id number] 15:27:00* Test Item Value Reference Range Comments UA GLUCOSE DIPSTIC POC (test code=GLUUP) Negative Negative UA GLU: NEGATIVEKET UA NEGATIVEPH UA 6.0UA NIT NegativePROT UA 15 (TRACE)BL UA N EGATIVEUA NENO NegativeTime performed: KETONE DIPSTICK [id number] 15:27:00* Test Item Value Reference Range Comments UA KETONE DIPSTICK POC (test code=KETUP) Negative Negative UA GLU: NEGATIVEKET UA NEGATIVEPH UA 6.0UA NIT NegativePROT UA 15 (TRACE)BL UA N EGATIVEUA NENO NegativeTime performed: 219UA BLOOD DIPSTIC [id number] 15:27:00* Test Item Value Reference Range Comments UA BLOOD DIPSTIC POC (test code=BLUP) Negative NEGATIVE UA GLU: NEGATIVEKET UA NEGATIVEPH UA 6.0UA NIT NegativePROT UA 15 (TRACE)BL UA N EGATIVEUA NENO NegativeTime performed: PH DIPSTIC [id number] 15:27:00* Test Item Value Reference Range Comments UA PH DIPSTIC POC (test code=PHUP) 6 5-8 UA GLU: NEGATIVEKET UA NEGATIVEPH UA 6.0UA NIT NegativePROT UA 15 (TRACE)BL UA N EGATIVEUA NENO NegativeTime performed: 219UA PROTEIN DIPSTICK [id number] 15:27:00* Test Item Value Reference Range Comments UA PROTEIN DIPSTICK POC (test code=DPROUP) 15 (Trace) Neg -15 UA GLU: NEGATIVEKET UA NEGATIVEPH UA 6.0UA NIT NegativePROT UA 15 (TRACE)BL UA N EGATIVEUA NENO NegativeTime performed: 219UA NITRITE DIPSTICK [id number] 15:27:00* Test Item Value Reference Range Comments UA NITRITE DIPSTICK POC (test code=NITUP) Negative Negative UA GLU: NEGATIVEKET UA NEGATIVEPH UA 6.0UA NIT NegativePROT UA 15 (TRACE)BL UA N EGATIVEUA NENO NegativeTime performed: 219UA LEUKOCYTE ESTERASE [id number] 15:27:00* Test Item Value Reference Range Comments UA LEUKOCYTE ESTERASE POC (test code=LEUUPOC) NEGATIVE NEGATIVE UA GLU: NEGATIVEKET UA NEGATIVEPH UA 6.0UA NIT NegativePROT UA 15 (TRACE)BL UA N EGATIVEUA NENO NegativeTime performed: 219UA GLUCOSE DIPSTIC [id number] 16:11:00* Test Item Value Reference Range Comments UA GLUCOSE DIPSTIC POC (test code=GLUUP) Negative Negative UA GLU: NEGATIVEKET UA 5 (Trace)PH UA 7.0UA NIT NegativePROT UA 15 (TRACE)BL UA NEGATIVEUA NENO NegativeTime performed: 253UA KETONE DIPSTICK [id number] 16:11:00* Test Item Value Reference Range Comments UA KETONE DIPSTICK POC (test code=KETUP) Negative UA GLU: NEGATIVEKET UA 5 (Trace)PH UA 7.0UA NIT NegativePROT UA 15 (TRACE)BL UA NEGATIVEUA NENO NegativeTime performed: 0254UA BLOOD DIPSTIC [id number] 16:11:00* Test Item Value Reference Range Comments UA BLOOD DIPSTIC POC (test code=BLUP) NEGATIVE UA GLU: NEGATIVEKET UA 5 (Trace)PH UA 7.0UA NIT NegativePROT UA 15 (TRACE)BL UA NEGATIVEUA NENO NegativeTime performed: 0254UA PH DIPSTIC [id number] 16:11:00 * Test Item Value Reference Range Comments UA PH DIPSTIC POC (test code=PHUP) 5-8 UA GLU: NEGATIVEKET UA 5 (Trace)PH UA 7.0UA NIT NegativePROT UA 15 (TRACE)BL UA NEGATIVEUA NENO NegativeTime performed: 0254UA PROTEIN DIPSTICK [id number] 16:11:00* Test Item Value Reference Range Comments UA PROTEIN DIPSTICK POC (test code=DPROUP) Neg -15 UA GLU: NEGATIVEKET UA 5 (Trace)PH UA 7.0UA NIT NegativePROT UA 15 (TRACE)BL UA NEGATIVEUA NENO NegativeTime performed: 0254UA NITRITE DIPSTICK [id number] 16:11:00* Test Item Value Reference Range Comments UA NITRITE DIPSTICK POC (test code=NITUP) Negative UA GLU: NEGATIVEKET UA 5 (Trace)PH UA 7.0UA NIT NegativePROT UA 15 (TRACE)BL UA NEGATIVEUA NENO NegativeTime performed: 0254UA LEUKOCYTE ESTERASE [id number] 16:11:00* Test Item Value Reference Range Comments UA LEUKOCYTE ESTERASE POC (test code=LEUUPOC) NEGATIVE UA GLU: NEGATIVEKET UA 5 (Trace)PH UA 7.0UA NIT NegativePROT UA 15 (TRACE)BL UA NEGATIVEUA NENO NegativeTime performed: 0254UA GLUCOSE DIPSTIC [id number] 16:11:00* Test Item Value Reference Range Comments UA GLUCOSE DIPSTIC POC (test code=GLUUP) Negative Negative UA GLU: NEGATIVEKET UA 5 (Trace)PH UA 7.0UA NIT NegativePROT UA 15 (TRACE)BL UA NEGATIVEUA NENO NegativeTime performed: 0254UA KETONE DIPSTICK [id number] 16:11:00* Test Item Value Reference Range Comments UA KETONE DIPSTICK POC (test code=KETUP) 5 Negative UA GLU: NEGATIVEKET UA 5 (Trace)PH UA 7.0UA NIT NegativePROT UA 15 (TRACE)BL UA NEGATIVEUA NENO NegativeTime performed: 0254UA BLOOD DIPSTIC [id number] 16:11:00* Test Item Value Reference Range Comments UA BLOOD DIPSTIC POC (test code=BLUP) NEGATIVE UA GLU: NEGATIVEKET UA 5 (Trace)PH UA 7.0UA NIT NegativePROT UA 15 (TRACE)BL UA NEGATIVEUA NENO NegativeTime performed: 0254UA PH DIPSTIC [id number] 16:11:00 * Test Item Value Reference Range Comments UA PH DIPSTIC POC (test code=PHUP) 5-8 UA GLU: NEGATIVEKET UA 5 (Trace)PH UA 7.0UA NIT NegativePROT UA 15 (TRACE)BL UA NEGATIVEUA NENO NegativeTime performed: 0254UA PROTEIN DIPSTICK [id number] 16:11:00* Test Item Value Reference Range Comments UA PROTEIN DIPSTICK POC (test code=DPROUP) Neg -15 UA GLU: NEGATIVEKET UA 5 (Trace)PH UA 7.0UA NIT NegativePROT UA 15 (TRACE)BL UA NEGATIVEUA NENO NegativeTime performed: 0254UA NITRITE DIPSTICK [id number] 16:11:00* Test Item Value Reference Range Comments UA NITRITE DIPSTICK POC (test code=NITUP) Negative UA GLU: NEGATIVEKET UA 5 (Trace)PH UA 7.0UA NIT NegativePROT UA 15 (TRACE)BL UA NEGATIVEUA NENO NegativeTime performed: 0254UA LEUKOCYTE ESTERASE [id number] 16:11:00* Test Item Value Reference Range Comments UA LEUKOCYTE ESTERASE POC (test code=LEUUPOC) NEGATIVE UA GLU: NEGATIVEKET UA 5 (Trace)PH UA 7.0UA NIT NegativePROT UA 15 (TRACE)BL UA NEGATIVEUA NENO NegativeTime performed: 0254UA GLUCOSE DIPSTIC [id number] 16:11:00* Test Item Value Reference Range Comments UA GLUCOSE DIPSTIC POC (test code=GLUUP) Negative Negative UA GLU: NEGATIVEKET UA 5 (Trace)PH UA 7.0UA NIT NegativePROT UA 15 (TRACE)BL UA NEGATIVEUA NENO NegativeTime performed: 0254UA KETONE DIPSTICK [id number] 16:11:00* Test Item Value Reference Range Comments UA KETONE DIPSTICK POC (test code=KETUP) 5 Negative UA GLU: NEGATIVEKET UA 5 (Trace)PH UA 7.0UA NIT NegativePROT UA 15 (TRACE)BL UA NEGATIVEUA NENO NegativeTime performed: 0254UA BLOOD DIPSTIC [id number] 16:11:00* Test Item Value Reference Range Comments UA BLOOD DIPSTIC POC (test code=BLUP) Negative NEGATIVE UA GLU: NEGATIVEKET UA 5 (Trace)PH UA 7.0UA NIT NegativePROT UA 15 (TRACE)BL UA NEGATIVEUA NENO NegativeTime performed: 0254UA PH DIPSTIC [id number] 16:11:00 * Test Item Value Reference Range Comments UA PH DIPSTIC POC (test code=PHUP) 5-8 UA GLU: NEGATIVEKET UA 5 (Trace)PH UA 7.0UA NIT NegativePROT UA 15 (TRACE)BL UA NEGATIVEUA NENO NegativeTime performed: 0254UA PROTEIN DIPSTICK [id number] 16:11:00* Test Item Value Reference Range Comments UA PROTEIN DIPSTICK POC (test code=DPROUP) Neg -15 UA GLU: NEGATIVEKET UA 5 (Trace)PH UA 7.0UA NIT NegativePROT UA 15 (TRACE)BL UA NEGATIVEUA NENO NegativeTime performed: 0254UA NITRITE DIPSTICK [id number] 16:11:00* Test Item Value Reference Range Comments UA NITRITE DIPSTICK POC (test code=NITUP) Negative UA GLU: NEGATIVEKET UA 5 (Trace)PH UA 7.0UA NIT NegativePROT UA 15 (TRACE)BL UA NEGATIVEUA NENO NegativeTime performed: 4UA LEUKOCYTE ESTERASE [id number] 16:11:00* Test Item Value Reference Range Comments UA LEUKOCYTE ESTERASE POC (test code=LEUUPOC) NEGATIVE UA GLU: NEGATIVEKET UA 5 (Trace)PH UA 7.0UA NIT NegativePROT UA 15 (TRACE)BL UA NEGATIVEUA NENO NegativeTime performed: 0254UA GLUCOSE DIPSTIC [id number] 16:11:00* Test Item Value Reference Range Comments UA GLUCOSE DIPSTIC POC (test code=GLUUP) Negative Negative UA GLU: NEGATIVEKET UA 5 (Trace)PH UA 7.0UA NIT NegativePROT UA 15 (TRACE)BL UA NEGATIVEUA NENO NegativeTime performed: 0254UA KETONE DIPSTICK [id number] 16:11:00* Test Item Value Reference Range Comments UA KETONE DIPSTICK POC (test code=KETUP) 5 Negative UA GLU: NEGATIVEKET UA 5 (Trace)PH UA 7.0UA NIT NegativePROT UA 15 (TRACE)BL UA NEGATIVEUA NENO NegativeTime performed: 0254UA BLOOD DIPSTIC [id number] 16:11:00* Test Item Value Reference Range Comments UA BLOOD DIPSTIC POC (test code=BLUP) Negative NEGATIVE UA GLU: NEGATIVEKET UA 5 (Trace)PH UA 7.0UA NIT NegativePROT UA 15 (TRACE)BL UA NEGATIVEUA NENO NegativeTime performed: 0254UA PH DIPSTIC [id number] 16:11:00 * Test Item Value Reference Range Comments UA PH DIPSTIC POC (test code=PHUP) 7 5-8 UA GLU: NEGATIVEKET UA 5 (Trace)PH UA 7.0UA NIT NegativePROT UA 15 (TRACE)BL UA NEGATIVEUA NENO NegativeTime performed: 0254UA PROTEIN DIPSTICK [id number] 16:11:00* Test Item Value Reference Range Comments UA PROTEIN DIPSTICK POC (test code=DPROUP) Neg -15 UA GLU: NEGATIVEKET UA 5 (Trace)PH UA 7.0UA NIT NegativePROT UA 15 (TRACE)BL UA NEGATIVEUA NENO NegativeTime performed: 253UA NITRITE DIPSTICK [id number] 16:11:00* Test Item Value Reference Range Comments UA NITRITE DIPSTICK POC (test code=NITUP) Negative UA GLU: NEGATIVEKET UA 5 (Trace)PH UA 7.0UA NIT NegativePROT UA 15 (TRACE)BL UA NEGATIVEUA NENO NegativeTime performed: 253UA LEUKOCYTE ESTERASE [id number] 16:11:00* Test Item Value Reference Range Comments UA LEUKOCYTE ESTERASE POC (test code=LEUUPOC) NEGATIVE UA GLU: NEGATIVEKET UA 5 (Trace)PH UA 7.0UA NIT NegativePROT UA 15 (TRACE)BL UA NEGATIVEUA NENO NegativeTime performed: 0254UA GLUCOSE DIPSTIC [id number] 16:11:00* Test Item Value Reference Range Comments UA GLUCOSE DIPSTIC POC (test code=GLUUP) Negative Negative UA GLU: NEGATIVEKET UA 5 (Trace)PH UA 7.0UA NIT NegativePROT UA 15 (TRACE)BL UA NEGATIVEUA NENO NegativeTime performed: 0254UA KETONE DIPSTICK [id number] 16:11:00* Test Item Value Reference Range Comments UA KETONE DIPSTICK POC (test code=KETUP) 5 Negative UA GLU: NEGATIVEKET UA 5 (Trace)PH UA 7.0UA NIT NegativePROT UA 15 (TRACE)BL UA NEGATIVEUA NENO NegativeTime performed: 0254UA BLOOD DIPSTIC [id number] 16:11:00* Test Item Value Reference Range Comments UA BLOOD DIPSTIC POC (test code=BLUP) Negative NEGATIVE UA GLU: NEGATIVEKET UA 5 (Trace)PH UA 7.0UA NIT NegativePROT UA 15 (TRACE)BL UA NEGATIVEUA NENO NegativeTime performed: 0254UA PH DIPSTIC [id number] 16:11:00 * Test Item Value Reference Range Comments UA PH DIPSTIC POC (test code=PHUP) 7 5-8 UA GLU: NEGATIVEKET UA 5 (Trace)PH UA 7.0UA NIT NegativePROT UA 15 (TRACE)BL UA NEGATIVEUA NENO NegativeTime performed: 0254UA PROTEIN DIPSTICK [id number] 16:11:00* Test Item Value Reference Range Comments UA PROTEIN DIPSTICK POC (test code=DPROUP) 15 (Trace) Neg -15 UA GLU: NEGATIVEKET UA 5 (Trace)PH UA 7.0UA NIT NegativePROT UA 15 (TRACE)BL UA NEGATIVEUA NENO NegativeTime performed: 0254UA NITRITE DIPSTICK [id number] 16:11:00* Test Item Value Reference Range Comments UA NITRITE DIPSTICK POC (test code=NITUP) Negative UA GLU: NEGATIVEKET UA 5 (Trace)PH UA 7.0UA NIT NegativePROT UA 15 (TRACE)BL UA NEGATIVEUA NENO NegativeTime performed: 0254UA LEUKOCYTE ESTERASE [id number] 16:11:00* Test Item Value Reference Range Comments UA LEUKOCYTE ESTERASE POC (test code=LEUUPOC) NEGATIVE UA GLU: NEGATIVEKET UA 5 (Trace)PH UA 7.0UA NIT NegativePROT UA 15 (TRACE)BL UA NEGATIVEUA NENO NegativeTime performed: 0254UA GLUCOSE DIPSTIC [id number] 16:11:00* Test Item Value Reference Range Comments UA GLUCOSE DIPSTIC POC (test code=GLUUP) Negative Negative UA GLU: NEGATIVEKET UA 5 (Trace)PH UA 7.0UA NIT NegativePROT UA 15 (TRACE)BL UA NEGATIVEUA NENO NegativeTime performed: 0254UA KETONE DIPSTICK [id number] 16:11:00* Test Item Value Reference Range Comments UA KETONE DIPSTICK POC (test code=KETUP) 5 Negative UA GLU: NEGATIVEKET UA 5 (Trace)PH UA 7.0UA NIT NegativePROT UA 15 (TRACE)BL UA NEGATIVEUA NENO NegativeTime performed: 0254UA BLOOD DIPSTIC [id number] 16:11:00* Test Item Value Reference Range Comments UA BLOOD DIPSTIC POC (test code=BLUP) Negative NEGATIVE UA GLU: NEGATIVEKET UA 5 (Trace)PH UA 7.0UA NIT NegativePROT UA 15 (TRACE)BL UA NEGATIVEUA NENO NegativeTime performed: 0254UA PH DIPSTIC [id number] 16:11:00 * Test Item Value Reference Range Comments UA PH DIPSTIC POC (test code=PHUP) 7 5-8 UA GLU: NEGATIVEKET UA 5 (Trace)PH UA 7.0UA NIT NegativePROT UA 15 (TRACE)BL UA NEGATIVEUA NENO NegativeTime performed: 0254UA PROTEIN DIPSTICK [id number] 16:11:00* Test Item Value Reference Range Comments UA PROTEIN DIPSTICK POC (test code=DPROUP) 15 (Trace) Neg -15 UA GLU: NEGATIVEKET UA 5 (Trace)PH UA 7.0UA NIT NegativePROT UA 15 (TRACE)BL UA NEGATIVEUA NENO NegativeTime performed: 0254UA NITRITE DIPSTICK [id number] 16:11:00* Test Item Value Reference Range Comments UA NITRITE DIPSTICK POC (test code=NITUP) Negative Negative UA GLU: NEGATIVEKET UA 5 (Trace)PH UA 7.0UA NIT NegativePROT UA 15 (TRACE)BL UA NEGATIVEUA NENO NegativeTime performed: 0254UA LEUKOCYTE ESTERASE [id number] 16:11:00* Test Item Value Reference Range Comments UA LEUKOCYTE ESTERASE POC (test code=LEUUPOC) NEGATIVE UA GLU: NEGATIVEKET UA 5 (Trace)PH UA 7.0UA NIT NegativePROT UA 15 (TRACE)BL UA NEGATIVEUA NENO NegativeTime performed: 0254UA GLUCOSE DIPSTIC [id number] 16:11:00* Test Item Value Reference Range Comments UA GLUCOSE DIPSTIC POC (test code=GLUUP) Negative Negative UA GLU: NEGATIVEKET UA 5 (Trace)PH UA 7.0UA NIT NegativePROT UA 15 (TRACE)BL UA NEGATIVEUA NENO NegativeTime performed: 025UA KETONE DIPSTICK [id number] 16:11:00* Test Item Value Reference Range Comments UA KETONE DIPSTICK POC (test code=KETUP) 5 Negative UA GLU: NEGATIVEKET UA 5 (Trace)PH UA 7.0UA NIT NegativePROT UA 15 (TRACE)BL UA NEGATIVEUA NENO NegativeTime performed: 0254UA BLOOD DIPSTIC [id number] 16:11:00* Test Item Value Reference Range Comments UA BLOOD DIPSTIC POC (test code=BLUP) Negative NEGATIVE UA GLU: NEGATIVEKET UA 5 (Trace)PH UA 7.0UA NIT NegativePROT UA 15 (TRACE)BL UA NEGATIVEUA NENO NegativeTime performed: 0254UA PH DIPSTIC [id number] 16:11:00 * Test Item Value Reference Range Comments UA PH DIPSTIC POC (test code=PHUP) 7 5-8 UA GLU: NEGATIVEKET UA 5 (Trace)PH UA 7.0UA NIT NegativePROT UA 15 (TRACE)BL UA NEGATIVEUA NENO NegativeTime performed: 025UA PROTEIN DIPSTICK [id number] 16:11:00* Test Item Value Reference Range Comments UA PROTEIN DIPSTICK POC (test code=DPROUP) 15 (Trace) Neg -15 UA GLU: NEGATIVEKET UA 5 (Trace)PH UA 7.0UA NIT NegativePROT UA 15 (TRACE)BL UA NEGATIVEUA NENO NegativeTime performed: 025UA NITRITE DIPSTICK [id number] 16:11:00* Test Item Value Reference Range Comments UA NITRITE DIPSTICK POC (test code=NITUP) Negative Negative UA GLU: NEGATIVEKET UA 5 (Trace)PH UA 7.0UA NIT NegativePROT UA 15 (TRACE)BL UA NEGATIVEUA NENO NegativeTime performed: 025UA LEUKOCYTE ESTERASE [id number] 16:11:00* Test Item Value Reference Range Comments UA LEUKOCYTE ESTERASE POC (test code=LEUUPOC) NEGATIVE NEGATIVE UA GLU: NEGATIVEKET UA 5 (Trace)PH UA 7.0UA NIT NegativePROT UA 15 (TRACE)BL UA NEGATIVEUA NENO NegativeTime performed: 0254UA GLUCOSE DIPSTIC [id number] 17:15:00* Test Item Value Reference Range Comments UA GLUCOSE DIPSTIC POC (test code=GLUUP) Negative Negative UA GLU: NEGATIVEKET UA NEGATIVEPH UA 7.0UA NIT NegativePROT UA 15 (TRACE)BL UA N EGATIVEUA NENO NegativeTime performed: KETONE DIPSTICK [id number] 17:15:00* Test Item Value Reference Range Comments UA KETONE DIPSTICK POC (test code=KETUP) Negative UA GLU: NEGATIVEKET UA NEGATIVEPH UA 7.0UA NIT NegativePROT UA 15 (TRACE)BL UA N EGATIVEUA NENO NegativeTime performed: BLOOD DIPSTIC [id number] 17:15:00* Test Item Value Reference Range Comments UA BLOOD DIPSTIC POC (test code=BLUP) NEGATIVE UA GLU: NEGATIVEKET UA NEGATIVEPH UA 7.0UA NIT NegativePROT UA 15 (TRACE)BL UA N EGATIVEUA NENO NegativeTime performed: PH DIPSTIC [id number] 17:15:00* Test Item Value Reference Range Comments UA PH DIPSTIC POC (test code=PHUP) 5-8 UA GLU: NEGATIVEKET UA NEGATIVEPH UA 7.0UA NIT NegativePROT UA 15 (TRACE)BL UA N EGATIVEUA NENO NegativeTime performed: PROTEIN DIPSTICK [id number] 17:15:00* Test Item Value Reference Range Comments UA PROTEIN DIPSTICK POC (test code=DPROUP) Neg -15 UA GLU: NEGATIVEKET UA NEGATIVEPH UA 7.0UA NIT NegativePROT UA 15 (TRACE)BL UA N EGATIVEUA NENO NegativeTime performed: NITRITE DIPSTICK [id number] 17:15:00* Test Item Value Reference Range Comments UA NITRITE DIPSTICK POC (test code=NITUP) Negative UA GLU: NEGATIVEKET UA NEGATIVEPH UA 7.0UA NIT NegativePROT UA 15 (TRACE)BL UA N EGATIVEUA NENO NegativeTime performed: LEUKOCYTE ESTERASE [id number] 17:15:00* Test Item Value Reference Range Comments UA LEUKOCYTE ESTERASE POC (test code=LEUUPOC) NEGATIVE UA GLU: NEGATIVEKET UA NEGATIVEPH UA 7.0UA NIT NegativePROT UA 15 (TRACE)BL UA N EGATIVEUA NENO NegativeTime performed: GLUCOSE DIPSTIC [id number] 17:15:00* Test Item Value Reference Range Comments UA GLUCOSE DIPSTIC POC (test code=GLUUP) Negative Negative UA GLU: NEGATIVEKET UA NEGATIVEPH UA 7.0UA NIT NegativePROT UA 15 (TRACE)BL UA N EGATIVEUA NENO NegativeTime performed: KETONE DIPSTICK [id number] 17:15:00* Test Item Value Reference Range Comments UA KETONE DIPSTICK POC (test code=KETUP) Negative Negative UA GLU: NEGATIVEKET UA NEGATIVEPH UA 7.0UA NIT NegativePROT UA 15 (TRACE)BL UA N EGATIVEUA NENO NegativeTime performed: 224UA BLOOD DIPSTIC [id number] 17:15:00* Test Item Value Reference Range Comments UA BLOOD DIPSTIC POC (test code=BLUP) NEGATIVE UA GLU: NEGATIVEKET UA NEGATIVEPH UA 7.0UA NIT NegativePROT UA 15 (TRACE)BL UA N EGATIVEUA NENO NegativeTime performed: 224UA PH DIPSTIC [id number] 17:15:00* Test Item Value Reference Range Comments UA PH DIPSTIC POC (test code=PHUP) 5-8 UA GLU: NEGATIVEKET UA NEGATIVEPH UA 7.0UA NIT NegativePROT UA 15 (TRACE)BL UA N EGATIVEUA NENO NegativeTime performed: 224UA PROTEIN DIPSTICK [id number] 17:15:00* Test Item Value Reference Range Comments UA PROTEIN DIPSTICK POC (test code=DPROUP) Neg -15 UA GLU: NEGATIVEKET UA NEGATIVEPH UA 7.0UA NIT NegativePROT UA 15 (TRACE)BL UA N EGATIVEUA NENO NegativeTime performed: 224UA NITRITE DIPSTICK [id number] 17:15:00* Test Item Value Reference Range Comments UA NITRITE DIPSTICK POC (test code=NITUP) Negative UA GLU: NEGATIVEKET UA NEGATIVEPH UA 7.0UA NIT NegativePROT UA 15 (TRACE)BL UA N EGATIVEUA NENO NegativeTime performed: LEUKOCYTE ESTERASE [id number] 17:15:00* Test Item Value Reference Range Comments UA LEUKOCYTE ESTERASE POC (test code=LEUUPOC) NEGATIVE UA GLU: NEGATIVEKET UA NEGATIVEPH UA 7.0UA NIT NegativePROT UA 15 (TRACE)BL UA N EGATIVEUA NENO NegativeTime performed: GLUCOSE DIPSTIC [id number] 17:15:00* Test Item Value Reference Range Comments UA GLUCOSE DIPSTIC POC (test code=GLUUP) Negative Negative UA GLU: NEGATIVEKET UA NEGATIVEPH UA 7.0UA NIT NegativePROT UA 15 (TRACE)BL UA N EGATIVEUA NENO NegativeTime performed: 224UA KETONE DIPSTICK [id number] 17:15:00* Test Item Value Reference Range Comments UA KETONE DIPSTICK POC (test code=KETUP) Negative Negative UA GLU: NEGATIVEKET UA NEGATIVEPH UA 7.0UA NIT NegativePROT UA 15 (TRACE)BL UA N EGATIVEUA NENO NegativeTime performed: 224UA BLOOD DIPSTIC [id number] 17:15:00* Test Item Value Reference Range Comments UA BLOOD DIPSTIC POC (test code=BLUP) Negative NEGATIVE UA GLU: NEGATIVEKET UA NEGATIVEPH UA 7.0UA NIT NegativePROT UA 15 (TRACE)BL UA N EGATIVEUA NENO NegativeTime performed: PH DIPSTIC [id number] 17:15:00* Test Item Value Reference Range Comments UA PH DIPSTIC POC (test code=PHUP) 5-8 UA GLU: NEGATIVEKET UA NEGATIVEPH UA 7.0UA NIT NegativePROT UA 15 (TRACE)BL UA N EGATIVEUA NENO NegativeTime performed: 224UA PROTEIN DIPSTICK [id number] 17:15:00* Test Item Value Reference Range Comments UA PROTEIN DIPSTICK POC (test code=DPROUP) Neg -15 UA GLU: NEGATIVEKET UA NEGATIVEPH UA 7.0UA NIT NegativePROT UA 15 (TRACE)BL UA N EGATIVEUA NENO NegativeTime performed: 224UA NITRITE DIPSTICK [id number] 17:15:00* Test Item Value Reference Range Comments UA NITRITE DIPSTICK POC (test code=NITUP) Negative UA GLU: NEGATIVEKET UA NEGATIVEPH UA 7.0UA NIT NegativePROT UA 15 (TRACE)BL UA N EGATIVEUA NENO NegativeTime performed: 224UA LEUKOCYTE ESTERASE [id number] 17:15:00* Test Item Value Reference Range Comments UA LEUKOCYTE ESTERASE POC (test code=LEUUPOC) NEGATIVE UA GLU: NEGATIVEKET UA NEGATIVEPH UA 7.0UA NIT NegativePROT UA 15 (TRACE)BL UA N EGATIVEUA NENO NegativeTime performed: GLUCOSE DIPSTIC [id number] 17:15:00* Test Item Value Reference Range Comments UA GLUCOSE DIPSTIC POC (test code=GLUUP) Negative Negative UA GLU: NEGATIVEKET UA NEGATIVEPH UA 7.0UA NIT NegativePROT UA 15 (TRACE)BL UA N EGATIVEUA NENO NegativeTime performed: KETONE DIPSTICK [id number] 17:15:00* Test Item Value Reference Range Comments UA KETONE DIPSTICK POC (test code=KETUP) Negative Negative UA GLU: NEGATIVEKET UA NEGATIVEPH UA 7.0UA NIT NegativePROT UA 15 (TRACE)BL UA N EGATIVEUA NENO NegativeTime performed: BLOOD DIPSTIC [id number] 17:15:00* Test Item Value Reference Range Comments UA BLOOD DIPSTIC POC (test code=BLUP) Negative NEGATIVE UA GLU: NEGATIVEKET UA NEGATIVEPH UA 7.0UA NIT NegativePROT UA 15 (TRACE)BL UA N EGATIVEUA NENO NegativeTime performed: PH DIPSTIC [id number] 17:15:00* Test Item Value Reference Range Comments UA PH DIPSTIC POC (test code=PHUP) 7 5-8 UA GLU: NEGATIVEKET UA NEGATIVEPH UA 7.0UA NIT NegativePROT UA 15 (TRACE)BL UA N EGATIVEUA NENO NegativeTime performed: 224UA PROTEIN DIPSTICK [id number] 17:15:00* Test Item Value Reference Range Comments UA PROTEIN DIPSTICK POC (test code=DPROUP) Neg -15 UA GLU: NEGATIVEKET UA NEGATIVEPH UA 7.0UA NIT NegativePROT UA 15 (TRACE)BL UA N EGATIVEUA NENO NegativeTime performed: 224UA NITRITE DIPSTICK [id number] 17:15:00* Test Item Value Reference Range Comments UA NITRITE DIPSTICK POC (test code=NITUP) Negative UA GLU: NEGATIVEKET UA NEGATIVEPH UA 7.0UA NIT NegativePROT UA 15 (TRACE)BL UA N EGATIVEUA NENO NegativeTime performed: LEUKOCYTE ESTERASE [id number] 17:15:00* Test Item Value Reference Range Comments UA LEUKOCYTE ESTERASE POC (test code=LEUUPOC) NEGATIVE UA GLU: NEGATIVEKET UA NEGATIVEPH UA 7.0UA NIT NegativePROT UA 15 (TRACE)BL UA N EGATIVEUA NENO NegativeTime performed: GLUCOSE DIPSTIC [id number] 17:15:00* Test Item Value Reference Range Comments UA GLUCOSE DIPSTIC POC (test code=GLUUP) Negative Negative UA GLU: NEGATIVEKET UA NEGATIVEPH UA 7.0UA NIT NegativePROT UA 15 (TRACE)BL UA N EGATIVEUA NENO NegativeTime performed: KETONE DIPSTICK [id number] 17:15:00* Test Item Value Reference Range Comments UA KETONE DIPSTICK POC (test code=KETUP) Negative Negative UA GLU: NEGATIVEKET UA NEGATIVEPH UA 7.0UA NIT NegativePROT UA 15 (TRACE)BL UA N EGATIVEUA NENO NegativeTime performed: BLOOD DIPSTIC [id number] 17:15:00* Test Item Value Reference Range Comments UA BLOOD DIPSTIC POC (test code=BLUP) Negative NEGATIVE UA GLU: NEGATIVEKET UA NEGATIVEPH UA 7.0UA NIT NegativePROT UA 15 (TRACE)BL UA N EGATIVEUA NENO NegativeTime performed: PH DIPSTIC [id number] 17:15:00* Test Item Value Reference Range Comments UA PH DIPSTIC POC (test code=PHUP) 7 5-8 UA GLU: NEGATIVEKET UA NEGATIVEPH UA 7.0UA NIT NegativePROT UA 15 (TRACE)BL UA N EGATIVEUA NENO NegativeTime performed: PROTEIN DIPSTICK [id number] 17:15:00* Test Item Value Reference Range Comments UA PROTEIN DIPSTICK POC (test code=DPROUP) 15 (Trace) Neg -15 UA GLU: NEGATIVEKET UA NEGATIVEPH UA 7.0UA NIT NegativePROT UA 15 (TRACE)BL UA N EGATIVEUA NENO NegativeTime performed: NITRITE DIPSTICK [id number] 17:15:00* Test Item Value Reference Range Comments UA NITRITE DIPSTICK POC (test code=NITUP) Negative UA GLU: NEGATIVEKET UA NEGATIVEPH UA 7.0UA NIT NegativePROT UA 15 (TRACE)BL UA N EGATIVEUA NENO NegativeTime performed: LEUKOCYTE ESTERASE [id number] 17:15:00* Test Item Value Reference Range Comments UA LEUKOCYTE ESTERASE POC (test code=LEUUPOC) NEGATIVE UA GLU: NEGATIVEKET UA NEGATIVEPH UA 7.0UA NIT NegativePROT UA 15 (TRACE)BL UA N EGATIVEUA NENO NegativeTime performed: GLUCOSE DIPSTIC [id number] 17:15:00* Test Item Value Reference Range Comments UA GLUCOSE DIPSTIC POC (test code=GLUUP) Negative Negative UA GLU: NEGATIVEKET UA NEGATIVEPH UA 7.0UA NIT NegativePROT UA 15 (TRACE)BL UA N EGATIVEUA NENO NegativeTime performed: KETONE DIPSTICK [id number] 17:15:00* Test Item Value Reference Range Comments UA KETONE DIPSTICK POC (test code=KETUP) Negative Negative UA GLU: NEGATIVEKET UA NEGATIVEPH UA 7.0UA NIT NegativePROT UA 15 (TRACE)BL UA N EGATIVEUA NENO NegativeTime performed: BLOOD DIPSTIC [id number] 17:15:00* Test Item Value Reference Range Comments UA BLOOD DIPSTIC POC (test code=BLUP) Negative NEGATIVE UA GLU: NEGATIVEKET UA NEGATIVEPH UA 7.0UA NIT NegativePROT UA 15 (TRACE)BL UA N EGATIVEUA NENO NegativeTime performed: PH DIPSTIC [id number] 17:15:00* Test Item Value Reference Range Comments UA PH DIPSTIC POC (test code=PHUP) 7 5-8 UA GLU: NEGATIVEKET UA NEGATIVEPH UA 7.0UA NIT NegativePROT UA 15 (TRACE)BL UA N EGATIVEUA NENO NegativeTime performed: PROTEIN DIPSTICK [id number] 17:15:00* Test Item Value Reference Range Comments UA PROTEIN DIPSTICK POC (test code=DPROUP) 15 (Trace) Neg -15 UA GLU: NEGATIVEKET UA NEGATIVEPH UA 7.0UA NIT NegativePROT UA 15 (TRACE)BL UA N EGATIVEUA NENO NegativeTime performed: NITRITE DIPSTICK [id number] 17:15:00* Test Item Value Reference Range Comments UA NITRITE DIPSTICK POC (test code=NITUP) Negative Negative UA GLU: NEGATIVEKET UA NEGATIVEPH UA 7.0UA NIT NegativePROT UA 15 (TRACE)BL UA N EGATIVEUA NENO NegativeTime performed: 224UA LEUKOCYTE ESTERASE [id number] 17:15:00* Test Item Value Reference Range Comments UA LEUKOCYTE ESTERASE POC (test code=LEUUPOC) NEGATIVE UA GLU: NEGATIVEKET UA NEGATIVEPH UA 7.0UA NIT NegativePROT UA 15 (TRACE)BL UA N EGATIVEUA NENO NegativeTime performed: GLUCOSE DIPSTIC [id number] 17:15:00* Test Item Value Reference Range Comments UA GLUCOSE DIPSTIC POC (test code=GLUUP) Negative Negative UA GLU: NEGATIVEKET UA NEGATIVEPH UA 7.0UA NIT NegativePROT UA 15 (TRACE)BL UA N EGATIVEUA NENO NegativeTime performed: KETONE DIPSTICK [id number] 17:15:00* Test Item Value Reference Range Comments UA KETONE DIPSTICK POC (test code=KETUP) Negative Negative UA GLU: NEGATIVEKET UA NEGATIVEPH UA 7.0UA NIT NegativePROT UA 15 (TRACE)BL UA N EGATIVEUA NENO NegativeTime performed: BLOOD DIPSTIC [id number] 17:15:00* Test Item Value Reference Range Comments UA BLOOD DIPSTIC POC (test code=BLUP) Negative NEGATIVE UA GLU: NEGATIVEKET UA NEGATIVEPH UA 7.0UA NIT NegativePROT UA 15 (TRACE)BL UA N EGATIVEUA NENO NegativeTime performed: PH DIPSTIC [id number] 17:15:00* Test Item Value Reference Range Comments UA PH DIPSTIC POC (test code=PHUP) 7 5-8 UA GLU: NEGATIVEKET UA NEGATIVEPH UA 7.0UA NIT NegativePROT UA 15 (TRACE)BL UA N EGATIVEUA NENO NegativeTime performed: PROTEIN DIPSTICK [id number] 17:15:00* Test Item Value Reference Range Comments UA PROTEIN DIPSTICK POC (test code=DPROUP) 15 (Trace) Neg -15 UA GLU: NEGATIVEKET UA NEGATIVEPH UA 7.0UA NIT NegativePROT UA 15 (TRACE)BL UA N EGATIVEUA NENO NegativeTime performed: NITRITE DIPSTICK [id number] 17:15:00* Test Item Value Reference Range Comments UA NITRITE DIPSTICK POC (test code=NITUP) Negative Negative UA GLU: NEGATIVEKET UA NEGATIVEPH UA 7.0UA NIT NegativePROT UA 15 (TRACE)BL UA N EGATIVEUA NENO NegativeTime performed: LEUKOCYTE ESTERASE [id number] 17:15:00* Test Item Value Reference Range Comments UA LEUKOCYTE ESTERASE POC (test code=LEUUPOC) NEGATIVE NEGATIVE UA GLU: NEGATIVEKET UA NEGATIVEPH UA 7.0UA NIT NegativePROT UA 15 (TRACE)BL UA N EGATIVEUA NENO NegativeTime performed: 224UA GLUCOSE DIPSTIC [id number] 12:45:00* Test Item Value Reference Range Comments UA GLUCOSE DIPSTIC POC (test code=GLUUP) Negative Negative UA GLU: NEGATIVEKET UA NEGATIVEPH UA 5.0UA NIT NegativePROT UA NEGATIVEBL UA NEG ATIVEUA NENO NegativeTime performed: 1129UA KETONE DIPSTICK [id number] 12:45:00* Test Item Value Reference Range Comments UA KETONE DIPSTICK POC (test code=KETUP) Negative UA GLU: NEGATIVEKET UA NEGATIVEPH UA 5.0UA NIT NegativePROT UA NEGATIVEBL UA NEG ATIVEUA NENO NegativeTime performed: 1129UA BLOOD DIPSTIC [id number] 12:45:00 * Test Item Value Reference Range Comments UA BLOOD DIPSTIC POC (test code=BLUP) NEGATIVE UA GLU: NEGATIVEKET UA NEGATIVEPH UA 5.0UA NIT NegativePROT UA NEGATIVEBL UA NEG ATIVEUA NENO NegativeTime performed: 0UA PH DIPSTIC [id number] 12:45:00* Test Item Value Reference Range Comments UA PH DIPSTIC POC (test code=PHUP) 5-8 UA GLU: NEGATIVEKET UA NEGATIVEPH UA 5.0UA NIT NegativePROT UA NEGATIVEBL UA NEG ATIVEUA NENO NegativeTime performed: 0UA PROTEIN DIPSTICK [id number] 12:45:00* Test Item Value Reference Range Comments UA PROTEIN DIPSTICK POC (test code=DPROUP) Neg -15 UA GLU: NEGATIVEKET UA NEGATIVEPH UA 5.0UA NIT NegativePROT UA NEGATIVEBL UA NEG ATIVEUA NENO NegativeTime performed: 0UA NITRITE DIPSTICK [id number] 12:45:00* Test Item Value Reference Range Comments UA NITRITE DIPSTICK POC (test code=NITUP) Negative UA GLU: NEGATIVEKET UA NEGATIVEPH UA 5.0UA NIT NegativePROT UA NEGATIVEBL UA NEG ATIVEUA NENO NegativeTime performed: 0UA LEUKOCYTE ESTERASE [id number] 12:45:00* Test Item Value Reference Range Comments UA LEUKOCYTE ESTERASE POC (test code=LEUUPOC) NEGATIVE UA GLU: NEGATIVEKET UA NEGATIVEPH UA 5.0UA NIT NegativePROT UA NEGATIVEBL UA NEG ATIVEUA NENO NegativeTime performed: 1130UA GLUCOSE DIPSTIC [id number] 12:45:00* Test Item Value Reference Range Comments UA GLUCOSE DIPSTIC POC (test code=GLUUP) Negative Negative UA GLU: NEGATIVEKET UA NEGATIVEPH UA 5.0UA NIT NegativePROT UA NEGATIVEBL UA NEG ATIVEUA NENO NegativeTime performed: 1130UA KETONE DIPSTICK [id number] 12:45:00* Test Item Value Reference Range Comments UA KETONE DIPSTICK POC (test code=KETUP) Negative Negative UA GLU: NEGATIVEKET UA NEGATIVEPH UA 5.0UA NIT NegativePROT UA NEGATIVEBL UA NEG ATIVEUA NENO NegativeTime performed: 1130UA BLOOD DIPSTIC [id number] 12:45:00 * Test Item Value Reference Range Comments UA BLOOD DIPSTIC POC (test code=BLUP) NEGATIVE UA GLU: NEGATIVEKET UA NEGATIVEPH UA 5.0UA NIT NegativePROT UA NEGATIVEBL UA NEG ATIVEUA NENO NegativeTime performed: 1130UA PH DIPSTIC [id number] 12:45:00* Test Item Value Reference Range Comments UA PH DIPSTIC POC (test code=PHUP) 5-8 UA GLU: NEGATIVEKET UA NEGATIVEPH UA 5.0UA NIT NegativePROT UA NEGATIVEBL UA NEG ATIVEUA NENO NegativeTime performed: 1130UA PROTEIN DIPSTICK [id number] 12:45:00* Test Item Value Reference Range Comments UA PROTEIN DIPSTICK POC (test code=DPROUP) Neg -15 UA GLU: NEGATIVEKET UA NEGATIVEPH UA 5.0UA NIT NegativePROT UA NEGATIVEBL UA NEG ATIVEUA NENO NegativeTime performed: 1130UA NITRITE DIPSTICK [id number] 12:45:00* Test Item Value Reference Range Comments UA NITRITE DIPSTICK POC (test code=NITUP) Negative UA GLU: NEGATIVEKET UA NEGATIVEPH UA 5.0UA NIT NegativePROT UA NEGATIVEBL UA NEG ATIVEUA NENO NegativeTime performed: 1130UA LEUKOCYTE ESTERASE [id number] 12:45:00* Test Item Value Reference Range Comments UA LEUKOCYTE ESTERASE POC (test code=LEUUPOC) NEGATIVE UA GLU: NEGATIVEKET UA NEGATIVEPH UA 5.0UA NIT NegativePROT UA NEGATIVEBL UA NEG ATIVEUA NENO NegativeTime performed: 1130UA GLUCOSE DIPSTIC [id number] 12:45:00* Test Item Value Reference Range Comments UA GLUCOSE DIPSTIC POC (test code=GLUUP) Negative Negative UA GLU: NEGATIVEKET UA NEGATIVEPH UA 5.0UA NIT NegativePROT UA NEGATIVEBL UA NEG ATIVEUA NENO NegativeTime performed: 1130UA KETONE DIPSTICK [id number] 12:45:00* Test Item Value Reference Range Comments UA KETONE DIPSTICK POC (test code=KETUP) Negative Negative UA GLU: NEGATIVEKET UA NEGATIVEPH UA 5.0UA NIT NegativePROT UA NEGATIVEBL UA NEG ATIVEUA NENO NegativeTime performed: 1130UA BLOOD DIPSTIC [id number] 12:45:00 * Test Item Value Reference Range Comments UA BLOOD DIPSTIC POC (test code=BLUP) Negative NEGATIVE UA GLU: NEGATIVEKET UA NEGATIVEPH UA 5.0UA NIT NegativePROT UA NEGATIVEBL UA NEG ATIVEUA NENO NegativeTime performed: 1130UA PH DIPSTIC [id number] 12:45:00* Test Item Value Reference Range Comments UA PH DIPSTIC POC (test code=PHUP) 5-8 UA GLU: NEGATIVEKET UA NEGATIVEPH UA 5.0UA NIT NegativePROT UA NEGATIVEBL UA NEG ATIVEUA NENO NegativeTime performed: 1130UA PROTEIN DIPSTICK [id number] 12:45:00* Test Item Value Reference Range Comments UA PROTEIN DIPSTICK POC (test code=DPROUP) Neg -15 UA GLU: NEGATIVEKET UA NEGATIVEPH UA 5.0UA NIT NegativePROT UA NEGATIVEBL UA NEG ATIVEUA NENO NegativeTime performed: 1130UA NITRITE DIPSTICK [id number] 12:45:00* Test Item Value Reference Range Comments UA NITRITE DIPSTICK POC (test code=NITUP) Negative UA GLU: NEGATIVEKET UA NEGATIVEPH UA 5.0UA NIT NegativePROT UA NEGATIVEBL UA NEG ATIVEUA NENO NegativeTime performed: 1130UA LEUKOCYTE ESTERASE [id number] 12:45:00* Test Item Value Reference Range Comments UA LEUKOCYTE ESTERASE POC (test code=LEUUPOC) NEGATIVE UA GLU: NEGATIVEKET UA NEGATIVEPH UA 5.0UA NIT NegativePROT UA NEGATIVEBL UA NEG ATIVEUA NENO NegativeTime performed: 1130UA GLUCOSE DIPSTIC [id number] 12:45:00* Test Item Value Reference Range Comments UA GLUCOSE DIPSTIC POC (test code=GLUUP) Negative Negative UA GLU: NEGATIVEKET UA NEGATIVEPH UA 5.0UA NIT NegativePROT UA NEGATIVEBL UA NEG ATIVEUA NENO NegativeTime performed: 1130UA KETONE DIPSTICK [id number] 12:45:00* Test Item Value Reference Range Comments UA KETONE DIPSTICK POC (test code=KETUP) Negative Negative UA GLU: NEGATIVEKET UA NEGATIVEPH UA 5.0UA NIT NegativePROT UA NEGATIVEBL UA NEG ATIVEUA NENO NegativeTime performed: 1130UA BLOOD DIPSTIC [id number] 12:45:00 * Test Item Value Reference Range Comments UA BLOOD DIPSTIC POC (test code=BLUP) Negative NEGATIVE UA GLU: NEGATIVEKET UA NEGATIVEPH UA 5.0UA NIT NegativePROT UA NEGATIVEBL UA NEG ATIVEUA NENO NegativeTime performed: 1130UA PH DIPSTIC [id number] 12:45:00* Test Item Value Reference Range Comments UA PH DIPSTIC POC (test code=PHUP) 5 5-8 UA GLU: NEGATIVEKET UA NEGATIVEPH UA 5.0UA NIT NegativePROT UA NEGATIVEBL UA NEG ATIVEUA NENO NegativeTime performed: 1130UA PROTEIN DIPSTICK [id number] 12:45:00* Test Item Value Reference Range Comments UA PROTEIN DIPSTICK POC (test code=DPROUP) Neg -15 UA GLU: NEGATIVEKET UA NEGATIVEPH UA 5.0UA NIT NegativePROT UA NEGATIVEBL UA NEG ATIVEUA NENO NegativeTime performed: 1130UA NITRITE DIPSTICK [id number] 12:45:00* Test Item Value Reference Range Comments UA NITRITE DIPSTICK POC (test code=NITUP) Negative UA GLU: NEGATIVEKET UA NEGATIVEPH UA 5.0UA NIT NegativePROT UA NEGATIVEBL UA NEG ATIVEUA NENO NegativeTime performed: 1130UA LEUKOCYTE ESTERASE [id number] 12:45:00* Test Item Value Reference Range Comments UA LEUKOCYTE ESTERASE POC (test code=LEUUPOC) NEGATIVE UA GLU: NEGATIVEKET UA NEGATIVEPH UA 5.0UA NIT NegativePROT UA NEGATIVEBL UA NEG ATIVEUA NENO NegativeTime performed: 1130UA GLUCOSE DIPSTIC [id number] 12:45:00* Test Item Value Reference Range Comments UA GLUCOSE DIPSTIC POC (test code=GLUUP) Negative Negative UA GLU: NEGATIVEKET UA NEGATIVEPH UA 5.0UA NIT NegativePROT UA NEGATIVEBL UA NEG ATIVEUA NENO NegativeTime performed: 1130UA KETONE DIPSTICK [id number] 12:45:00* Test Item Value Reference Range Comments UA KETONE DIPSTICK POC (test code=KETUP) Negative Negative UA GLU: NEGATIVEKET UA NEGATIVEPH UA 5.0UA NIT NegativePROT UA NEGATIVEBL UA NEG ATIVEUA NENO NegativeTime performed: 1130UA BLOOD DIPSTIC [id number] 12:45:00 * Test Item Value Reference Range Comments UA BLOOD DIPSTIC POC (test code=BLUP) Negative NEGATIVE UA GLU: NEGATIVEKET UA NEGATIVEPH UA 5.0UA NIT NegativePROT UA NEGATIVEBL UA NEG ATIVEUA NENO NegativeTime performed: 1130UA PH DIPSTIC [id number] 12:45:00* Test Item Value Reference Range Comments UA PH DIPSTIC POC (test code=PHUP) 5 5-8 UA GLU: NEGATIVEKET UA NEGATIVEPH UA 5.0UA NIT NegativePROT UA NEGATIVEBL UA NEG ATIVEUA NENO NegativeTime performed: 1130UA PROTEIN DIPSTICK [id number] 12:45:00* Test Item Value Reference Range Comments UA PROTEIN DIPSTICK POC (test code=DPROUP) Negative Neg -15 UA GLU: NEGATIVEKET UA NEGATIVEPH UA 5.0UA NIT NegativePROT UA NEGATIVEBL UA NEG ATIVEUA NENO NegativeTime performed: 1130UA NITRITE DIPSTICK [id number] 12:45:00* Test Item Value Reference Range Comments UA NITRITE DIPSTICK POC (test code=NITUP) Negative UA GLU: NEGATIVEKET UA NEGATIVEPH UA 5.0UA NIT NegativePROT UA NEGATIVEBL UA NEG ATIVEUA NENO NegativeTime performed: 1130UA LEUKOCYTE ESTERASE [id number] 12:45:00* Test Item Value Reference Range Comments UA LEUKOCYTE ESTERASE POC (test code=LEUUPOC) NEGATIVE UA GLU: NEGATIVEKET UA NEGATIVEPH UA 5.0UA NIT NegativePROT UA NEGATIVEBL UA NEG ATIVEUA ENNO NegativeTime performed: 1130UA GLUCOSE DIPSTIC [id number] 12:45:00* Test Item Value Reference Range Comments UA GLUCOSE DIPSTIC POC (test code=GLUUP) Negative Negative UA GLU: NEGATIVEKET UA NEGATIVEPH UA 5.0UA NIT NegativePROT UA NEGATIVEBL UA NEG ATIVEUA NENO NegativeTime performed: 1130UA KETONE DIPSTICK [id number] 12:45:00* Test Item Value Reference Range Comments UA KETONE DIPSTICK POC (test code=KETUP) Negative Negative UA GLU: NEGATIVEKET UA NEGATIVEPH UA 5.0UA NIT NegativePROT UA NEGATIVEBL UA NEG ATIVEUA NENO NegativeTime performed: 1130UA BLOOD DIPSTIC [id number] 12:45:00 * Test Item Value Reference Range Comments UA BLOOD DIPSTIC POC (test code=BLUP) Negative NEGATIVE UA GLU: NEGATIVEKET UA NEGATIVEPH UA 5.0UA NIT NegativePROT UA NEGATIVEBL UA NEG ATIVEUA NENO NegativeTime performed: 1130UA PH DIPSTIC [id number] 12:45:00* Test Item Value Reference Range Comments UA PH DIPSTIC POC (test code=PHUP) 5 5-8 UA GLU: NEGATIVEKET UA NEGATIVEPH UA 5.0UA NIT NegativePROT UA NEGATIVEBL UA NEG ATIVEUA NENO NegativeTime performed: 1130UA PROTEIN DIPSTICK [id number] 12:45:00* Test Item Value Reference Range Comments UA PROTEIN DIPSTICK POC (test code=DPROUP) Negative Neg -15 UA GLU: NEGATIVEKET UA NEGATIVEPH UA 5.0UA NIT NegativePROT UA NEGATIVEBL UA NEG ATIVEUA NENO NegativeTime performed: 1130UA NITRITE DIPSTICK [id number] 12:45:00* Test Item Value Reference Range Comments UA NITRITE DIPSTICK POC (test code=NITUP) Negative Negative UA GLU: NEGATIVEKET UA NEGATIVEPH UA 5.0UA NIT NegativePROT UA NEGATIVEBL UA NEG ATIVEUA NENO NegativeTime performed: 1130UA LEUKOCYTE ESTERASE [id number] 12:45:00* Test Item Value Reference Range Comments UA LEUKOCYTE ESTERASE POC (test code=LEUUPOC) NEGATIVE UA GLU: NEGATIVEKET UA NEGATIVEPH UA 5.0UA NIT NegativePROT UA NEGATIVEBL UA NEG ATIVEUA NENO NegativeTime performed: 1130UA GLUCOSE DIPSTIC [id number] 12:45:00* Test Item Value Reference Range Comments UA GLUCOSE DIPSTIC POC (test code=GLUUP) Negative Negative UA GLU: NEGATIVEKET UA NEGATIVEPH UA 5.0UA NIT NegativePROT UA NEGATIVEBL UA NEG ATIVEUA NENO NegativeTime performed: 1130UA KETONE DIPSTICK [id number] 12:45:00* Test Item Value Reference Range Comments UA KETONE DIPSTICK POC (test code=KETUP) Negative Negative UA GLU: NEGATIVEKET UA NEGATIVEPH UA 5.0UA NIT NegativePROT UA NEGATIVEBL UA NEG ATIVEUA NENO NegativeTime performed: 1130UA BLOOD DIPSTIC [id number] 12:45:00 * Test Item Value Reference Range Comments UA BLOOD DIPSTIC POC (test code=BLUP) Negative NEGATIVE UA GLU: NEGATIVEKET UA NEGATIVEPH UA 5.0UA NIT NegativePROT UA NEGATIVEBL UA NEG ATIVEUA NENO NegativeTime performed: 1130UA PH DIPSTIC [id number] 12:45:00* Test Item Value Reference Range Comments UA PH DIPSTIC POC (test code=PHUP) 5 5-8 UA GLU: NEGATIVEKET UA NEGATIVEPH UA 5.0UA NIT NegativePROT UA NEGATIVEBL UA NEG ATIVEUA NENO NegativeTime performed: 1130UA PROTEIN DIPSTICK [id number] 12:45:00* Test Item Value Reference Range Comments UA PROTEIN DIPSTICK POC (test code=DPROUP) Negative Neg -15 UA GLU: NEGATIVEKET UA NEGATIVEPH UA 5.0UA NIT NegativePROT UA NEGATIVEBL UA NEG ATIVEUA NENO NegativeTime performed: 1130UA NITRITE DIPSTICK [id number] 12:45:00* Test Item Value Reference Range Comments UA NITRITE DIPSTICK POC (test code=NITUP) Negative Negative UA GLU: NEGATIVEKET UA NEGATIVEPH UA 5.0UA NIT NegativePROT UA NEGATIVEBL UA NEG ATIVEUA NENO NegativeTime performed: 1130UA LEUKOCYTE ESTERASE [id number] 12:45:00* Test Item Value Reference Range Comments UA LEUKOCYTE ESTERASE POC (test code=LEUUPOC) NEGATIVE NEGATIVE UA GLU: NEGATIVEKET UA NEGATIVEPH UA 5.0UA NIT NegativePROT UA NEGATIVEBL UA NEG ATIVEUA NENO NegativeTime performed: 1130UA GLUCOSE DIPSTIC [id number] 15:26:00* Test Item Value Reference Range Comments UA GLUCOSE DIPSTIC POC (test code=GLUUP) Negative Negative UA GLU: NEGATIVEKET UA NEGATIVEPH UA 7.0UA NIT NegativePROT UA 15 (TRACE)BL UA N EGATIVEUA NENO NegativeTime performed: 310UA KETONE DIPSTICK [id number] 15:26:00* Test Item Value Reference Range Comments UA KETONE DIPSTICK POC (test code=KETUP) Negative UA GLU: NEGATIVEKET UA NEGATIVEPH UA 7.0UA NIT NegativePROT UA 15 (TRACE)BL UA N EGATIVEUA NENO NegativeTime performed: 310UA BLOOD DIPSTIC [id number] 15:26:00* Test Item Value Reference Range Comments UA BLOOD DIPSTIC POC (test code=BLUP) NEGATIVE UA GLU: NEGATIVEKET UA NEGATIVEPH UA 7.0UA NIT NegativePROT UA 15 (TRACE)BL UA N EGATIVEUA NENO NegativeTime performed: 310UA PH DIPSTIC [id number] 15:26:00* Test Item Value Reference Range Comments UA PH DIPSTIC POC (test code=PHUP) 5-8 UA GLU: NEGATIVEKET UA NEGATIVEPH UA 7.0UA NIT NegativePROT UA 15 (TRACE)BL UA N EGATIVEUA NENO NegativeTime performed: 310UA PROTEIN DIPSTICK [id number] 15:26:00* Test Item Value Reference Range Comments UA PROTEIN DIPSTICK POC (test code=DPROUP) Neg -15 UA GLU: NEGATIVEKET UA NEGATIVEPH UA 7.0UA NIT NegativePROT UA 15 (TRACE)BL UA N EGATIVEUA NENO NegativeTime performed: 310UA NITRITE DIPSTICK [id number] 15:26:00* Test Item Value Reference Range Comments UA NITRITE DIPSTICK POC (test code=NITUP) Negative UA GLU: NEGATIVEKET UA NEGATIVEPH UA 7.0UA NIT NegativePROT UA 15 (TRACE)BL UA N EGATIVEUA NENO NegativeTime performed: 310UA LEUKOCYTE ESTERASE [id number] 15:26:00* Test Item Value Reference Range Comments UA LEUKOCYTE ESTERASE POC (test code=LEUUPOC) NEGATIVE UA GLU: NEGATIVEKET UA NEGATIVEPH UA 7.0UA NIT NegativePROT UA 15 (TRACE)BL UA N EGATIVEUA NENO NegativeTime performed: 310UA GLUCOSE DIPSTIC [id number] 15:26:00* Test Item Value Reference Range Comments UA GLUCOSE DIPSTIC POC (test code=GLUUP) Negative Negative UA GLU: NEGATIVEKET UA NEGATIVEPH UA 7.0UA NIT NegativePROT UA 15 (TRACE)BL UA N EGATIVEUA NENO NegativeTime performed: KETONE DIPSTICK [id number] 15:26:00* Test Item Value Reference Range Comments UA KETONE DIPSTICK POC (test code=KETUP) Negative Negative UA GLU: NEGATIVEKET UA NEGATIVEPH UA 7.0UA NIT NegativePROT UA 15 (TRACE)BL UA N EGATIVEUA NENO NegativeTime performed: 310UA BLOOD DIPSTIC [id number] 15:26:00* Test Item Value Reference Range Comments UA BLOOD DIPSTIC POC (test code=BLUP) NEGATIVE UA GLU: NEGATIVEKET UA NEGATIVEPH UA 7.0UA NIT NegativePROT UA 15 (TRACE)BL UA N EGATIVEUA NENO NegativeTime performed: PH DIPSTIC [id number] 15:26:00* Test Item Value Reference Range Comments UA PH DIPSTIC POC (test code=PHUP) 5-8 UA GLU: NEGATIVEKET UA NEGATIVEPH UA 7.0UA NIT NegativePROT UA 15 (TRACE)BL UA N EGATIVEUA NENO NegativeTime performed: 310UA PROTEIN DIPSTICK [id number] 15:26:00* Test Item Value Reference Range Comments UA PROTEIN DIPSTICK POC (test code=DPROUP) Neg -15 UA GLU: NEGATIVEKET UA NEGATIVEPH UA 7.0UA NIT NegativePROT UA 15 (TRACE)BL UA N EGATIVEUA NENO NegativeTime performed: 310UA NITRITE DIPSTICK [id number] 15:26:00* Test Item Value Reference Range Comments UA NITRITE DIPSTICK POC (test code=NITUP) Negative UA GLU: NEGATIVEKET UA NEGATIVEPH UA 7.0UA NIT NegativePROT UA 15 (TRACE)BL UA N EGATIVEUA NENO NegativeTime performed: LEUKOCYTE ESTERASE [id number] 15:26:00* Test Item Value Reference Range Comments UA LEUKOCYTE ESTERASE POC (test code=LEUUPOC) NEGATIVE UA GLU: NEGATIVEKET UA NEGATIVEPH UA 7.0UA NIT NegativePROT UA 15 (TRACE)BL UA N EGATIVEUA NENO NegativeTime performed: 310UA GLUCOSE DIPSTIC [id number] 15:26:00* Test Item Value Reference Range Comments UA GLUCOSE DIPSTIC POC (test code=GLUUP) Negative Negative UA GLU: NEGATIVEKET UA NEGATIVEPH UA 7.0UA NIT NegativePROT UA 15 (TRACE)BL UA N EGATIVEUA NENO NegativeTime performed: KETONE DIPSTICK [id number] 15:26:00* Test Item Value Reference Range Comments UA KETONE DIPSTICK POC (test code=KETUP) Negative Negative UA GLU: NEGATIVEKET UA NEGATIVEPH UA 7.0UA NIT NegativePROT UA 15 (TRACE)BL UA N EGATIVEUA NENO NegativeTime performed: 310UA BLOOD DIPSTIC [id number] 15:26:00* Test Item Value Reference Range Comments UA BLOOD DIPSTIC POC (test code=BLUP) Negative NEGATIVE UA GLU: NEGATIVEKET UA NEGATIVEPH UA 7.0UA NIT NegativePROT UA 15 (TRACE)BL UA N EGATIVEUA NENO NegativeTime performed: 310UA PH DIPSTIC [id number] 15:26:00* Test Item Value Reference Range Comments UA PH DIPSTIC POC (test code=PHUP) 5-8 UA GLU: NEGATIVEKET UA NEGATIVEPH UA 7.0UA NIT NegativePROT UA 15 (TRACE)BL UA N EGATIVEUA NENO NegativeTime performed: 310UA PROTEIN DIPSTICK [id number] 15:26:00* Test Item Value Reference Range Comments UA PROTEIN DIPSTICK POC (test code=DPROUP) Neg -15 UA GLU: NEGATIVEKET UA NEGATIVEPH UA 7.0UA NIT NegativePROT UA 15 (TRACE)BL UA N EGATIVEUA NENO NegativeTime performed: 310UA NITRITE DIPSTICK [id number] 15:26:00* Test Item Value Reference Range Comments UA NITRITE DIPSTICK POC (test code=NITUP) Negative UA GLU: NEGATIVEKET UA NEGATIVEPH UA 7.0UA NIT NegativePROT UA 15 (TRACE)BL UA N EGATIVEUA NENO NegativeTime performed: 310UA LEUKOCYTE ESTERASE [id number] 15:26:00* Test Item Value Reference Range Comments UA LEUKOCYTE ESTERASE POC (test code=LEUUPOC) NEGATIVE UA GLU: NEGATIVEKET UA NEGATIVEPH UA 7.0UA NIT NegativePROT UA 15 (TRACE)BL UA N EGATIVEUA NENO NegativeTime performed: 310UA GLUCOSE DIPSTIC [id number] 15:26:00* Test Item Value Reference Range Comments UA GLUCOSE DIPSTIC POC (test code=GLUUP) Negative Negative UA GLU: NEGATIVEKET UA NEGATIVEPH UA 7.0UA NIT NegativePROT UA 15 (TRACE)BL UA N EGATIVEUA NENO NegativeTime performed: 310UA KETONE DIPSTICK [id number] 15:26:00* Test Item Value Reference Range Comments UA KETONE DIPSTICK POC (test code=KETUP) Negative Negative UA GLU: NEGATIVEKET UA NEGATIVEPH UA 7.0UA NIT NegativePROT UA 15 (TRACE)BL UA N EGATIVEUA NENO NegativeTime performed: 310UA BLOOD DIPSTIC [id number] 15:26:00* Test Item Value Reference Range Comments UA BLOOD DIPSTIC POC (test code=BLUP) Negative NEGATIVE UA GLU: NEGATIVEKET UA NEGATIVEPH UA 7.0UA NIT NegativePROT UA 15 (TRACE)BL UA N EGATIVEUA NENO NegativeTime performed: 310UA PH DIPSTIC [id number] 15:26:00* Test Item Value Reference Range Comments UA PH DIPSTIC POC (test code=PHUP) 5-8 UA GLU: NEGATIVEKET UA NEGATIVEPH UA 7.0UA NIT NegativePROT UA 15 (TRACE)BL UA N EGATIVEUA NENO NegativeTime performed: 310UA PROTEIN DIPSTICK [id number] 15:26:00* Test Item Value Reference Range Comments UA PROTEIN DIPSTICK POC (test code=DPROUP) 15 (Trace) Neg -15 UA GLU: NEGATIVEKET UA NEGATIVEPH UA 7.0UA NIT NegativePROT UA 15 (TRACE)BL UA N EGATIVEUA NENO NegativeTime performed: 310UA NITRITE DIPSTICK [id number] 15:26:00* Test Item Value Reference Range Comments UA NITRITE DIPSTICK POC (test code=NITUP) Negative UA GLU: NEGATIVEKET UA NEGATIVEPH UA 7.0UA NIT NegativePROT UA 15 (TRACE)BL UA N EGATIVEUA NENO NegativeTime performed: 310UA LEUKOCYTE ESTERASE [id number] 15:26:00* Test Item Value Reference Range Comments UA LEUKOCYTE ESTERASE POC (test code=LEUUPOC) NEGATIVE UA GLU: NEGATIVEKET UA NEGATIVEPH UA 7.0UA NIT NegativePROT UA 15 (TRACE)BL UA N EGATIVEUA NENO NegativeTime performed: 310UA GLUCOSE DIPSTIC [id number] 15:26:00* Test Item Value Reference Range Comments UA GLUCOSE DIPSTIC POC (test code=GLUUP) Negative Negative UA GLU: NEGATIVEKET UA NEGATIVEPH UA 7.0UA NIT NegativePROT UA 15 (TRACE)BL UA N EGATIVEUA NENO NegativeTime performed: 310UA KETONE DIPSTICK [id number] 15:26:00* Test Item Value Reference Range Comments UA KETONE DIPSTICK POC (test code=KETUP) Negative Negative UA GLU: NEGATIVEKET UA NEGATIVEPH UA 7.0UA NIT NegativePROT UA 15 (TRACE)BL UA N EGATIVEUA NENO NegativeTime performed: 310UA BLOOD DIPSTIC [id number] 15:26:00* Test Item Value Reference Range Comments UA BLOOD DIPSTIC POC (test code=BLUP) Negative NEGATIVE UA GLU: NEGATIVEKET UA NEGATIVEPH UA 7.0UA NIT NegativePROT UA 15 (TRACE)BL UA N EGATIVEUA NENO NegativeTime performed: 310UA PH DIPSTIC [id number] 15:26:00* Test Item Value Reference Range Comments UA PH DIPSTIC POC (test code=PHUP) 5-8 UA GLU: NEGATIVEKET UA NEGATIVEPH UA 7.0UA NIT NegativePROT UA 15 (TRACE)BL UA N EGATIVEUA NENO NegativeTime performed: 310UA PROTEIN DIPSTICK [id number] 15:26:00* Test Item Value Reference Range Comments UA PROTEIN DIPSTICK POC (test code=DPROUP) 15 (Trace) Neg -15 UA GLU: NEGATIVEKET UA NEGATIVEPH UA 7.0UA NIT NegativePROT UA 15 (TRACE)BL UA N EGATIVEUA NENO NegativeTime performed: 310UA NITRITE DIPSTICK [id number] 15:26:00* Test Item Value Reference Range Comments UA NITRITE DIPSTICK POC (test code=NITUP) Negative Negative UA GLU: NEGATIVEKET UA NEGATIVEPH UA 7.0UA NIT NegativePROT UA 15 (TRACE)BL UA N EGATIVEUA NENO NegativeTime performed: 310UA LEUKOCYTE ESTERASE [id number] 15:26:00* Test Item Value Reference Range Comments UA LEUKOCYTE ESTERASE POC (test code=LEUUPOC) NEGATIVE UA GLU: NEGATIVEKET UA NEGATIVEPH UA 7.0UA NIT NegativePROT UA 15 (TRACE)BL UA N EGATIVEUA NENO NegativeTime performed: 310UA GLUCOSE DIPSTIC [id number] 15:26:00* Test Item Value Reference Range Comments UA GLUCOSE DIPSTIC POC (test code=GLUUP) Negative Negative UA GLU: NEGATIVEKET UA NEGATIVEPH UA 7.0UA NIT NegativePROT UA 15 (TRACE)BL UA N EGATIVEUA NENO NegativeTime performed: KETONE DIPSTICK [id number] 15:26:00* Test Item Value Reference Range Comments UA KETONE DIPSTICK POC (test code=KETUP) Negative Negative UA GLU: NEGATIVEKET UA NEGATIVEPH UA 7.0UA NIT NegativePROT UA 15 (TRACE)BL UA N EGATIVEUA NENO NegativeTime performed: BLOOD DIPSTIC [id number] 15:26:00* Test Item Value Reference Range Comments UA BLOOD DIPSTIC POC (test code=BLUP) Negative NEGATIVE UA GLU: NEGATIVEKET UA NEGATIVEPH UA 7.0UA NIT NegativePROT UA 15 (TRACE)BL UA N EGATIVEUA NENO NegativeTime performed: 310UA PH DIPSTIC [id number] 15:26:00* Test Item Value Reference Range Comments UA PH DIPSTIC POC (test code=PHUP) 7 5-8 UA GLU: NEGATIVEKET UA NEGATIVEPH UA 7.0UA NIT NegativePROT UA 15 (TRACE)BL UA N EGATIVEUA NENO NegativeTime performed: 310UA PROTEIN DIPSTICK [id number] 15:26:00* Test Item Value Reference Range Comments UA PROTEIN DIPSTICK POC (test code=DPROUP) 15 (Trace) Neg -15 UA GLU: NEGATIVEKET UA NEGATIVEPH UA 7.0UA NIT NegativePROT UA 15 (TRACE)BL UA N EGATIVEUA NENO NegativeTime performed: NITRITE DIPSTICK [id number] 15:26:00* Test Item Value Reference Range Comments UA NITRITE DIPSTICK POC (test code=NITUP) Negative Negative UA GLU: NEGATIVEKET UA NEGATIVEPH UA 7.0UA NIT NegativePROT UA 15 (TRACE)BL UA N EGATIVEUA NENO NegativeTime performed: 310UA LEUKOCYTE ESTERASE [id number] 15:26:00* Test Item Value Reference Range Comments UA LEUKOCYTE ESTERASE POC (test code=LEUUPOC) NEGATIVE UA GLU: NEGATIVEKET UA NEGATIVEPH UA 7.0UA NIT NegativePROT UA 15 (TRACE)BL UA N EGATIVEUA NENO NegativeTime performed: 310UA GLUCOSE DIPSTIC [id number] 15:26:00* Test Item Value Reference Range Comments UA GLUCOSE DIPSTIC POC (test code=GLUUP) Negative Negative UA GLU: NEGATIVEKET UA NEGATIVEPH UA 7.0UA NIT NegativePROT UA 15 (TRACE)BL UA N EGATIVEUA NENO NegativeTime performed: 310UA KETONE DIPSTICK [id number] 15:26:00* Test Item Value Reference Range Comments UA KETONE DIPSTICK POC (test code=KETUP) Negative Negative UA GLU: NEGATIVEKET UA NEGATIVEPH UA 7.0UA NIT NegativePROT UA 15 (TRACE)BL UA N EGATIVEUA NENO NegativeTime performed: BLOOD DIPSTIC [id number] 15:26:00* Test Item Value Reference Range Comments UA BLOOD DIPSTIC POC (test code=BLUP) Negative NEGATIVE UA GLU: NEGATIVEKET UA NEGATIVEPH UA 7.0UA NIT NegativePROT UA 15 (TRACE)BL UA N EGATIVEUA NENO NegativeTime performed: 310UA PH DIPSTIC [id number] 15:26:00* Test Item Value Reference Range Comments UA PH DIPSTIC POC (test code=PHUP) 7 5-8 UA GLU: NEGATIVEKET UA NEGATIVEPH UA 7.0UA NIT NegativePROT UA 15 (TRACE)BL UA N EGATIVEUA NENO NegativeTime performed: 310UA PROTEIN DIPSTICK [id number] 15:26:00* Test Item Value Reference Range Comments UA PROTEIN DIPSTICK POC (test code=DPROUP) 15 (Trace) Neg -15 UA GLU: NEGATIVEKET UA NEGATIVEPH UA 7.0UA NIT NegativePROT UA 15 (TRACE)BL UA N EGATIVEUA NENO NegativeTime performed: 310UA NITRITE DIPSTICK [id number] 15:26:00* Test Item Value Reference Range Comments UA NITRITE DIPSTICK POC (test code=NITUP) Negative Negative UA GLU: NEGATIVEKET UA NEGATIVEPH UA 7.0UA NIT NegativePROT UA 15 (TRACE)BL UA N EGATIVEUA NENO NegativeTime performed: 310UA LEUKOCYTE ESTERASE [id number] 15:26:00* Test Item Value Reference Range Comments UA LEUKOCYTE ESTERASE POC (test code=LEUUPOC) NEGATIVE NEGATIVE UA GLU: NEGATIVEKET UA NEGATIVEPH UA 7.0UA NIT NegativePROT UA 15 (TRACE)BL UA N EGATIVEUA NENO NegativeTime performed: 1CBC W/AUTO [id number] 22:40:00* Test Item Value Reference Range Comments WHITE BLOOD CELL (test code=WBC) 9.7 K/mm3 4.5-12.5 RED BLOOD CELL (test code=RBC) 3.57 mill/mm3 3.7-5.2 HEMOGLOBIN (test code=HGB) 8.6 gram/dL 11.5-15.5 HEMATOCRIT (test code=HCT) 31.6 % 36.0-46.0 MEAN CELL VOLUME (test code=MCV) 88.5 fL 80-98 MEAN CELL HGB (test code=MCH) 24.1 picogram 27.0-33.0 MEAN CELL HGB CONCETRATION (test code=MCHC) 27.2 gram/dL 33.0-36.0 RED CELL DISTRIBUTION WIDTH (test code=RDW) 14.0 % 11.6-16.2 PLATELET COUNT (test code=PLT) 371 K/mm3 150-450 MEAN PLATELET VOLUME (test code=MPV) 10.7 fL 6.7-11.0 NEUTROPHIL % (test code=NT%) 72.9 % 39.0-69.0 LYMPHOCYTE % (test code=LY%) 19.9 % 25.0-55.0 MONOCYTE % (test code=MO%) 5.1 % 0.0-10.0 EOSINOPHIL % (test code=EO%) 1.4 % 0.0-5.0 BASOPHIL % (test code=BA%) 0.3 % 0.0-1.0 NEUTROPHIL # (test code=NT#) 7.06 K/mm3 1.8-7.7 LYMPHOCYTE # (test code=LY#) 1.93 K/mm3 1.0-5.0 MONOCYTE # (test code=MO#) 0.49 K/mm3 0-0.8 EOSINOPHIL # (test code=EO#) 0.14 K/mm3 0.0-0.5 BASOPHIL # (test code=BA#) 0.03 K/mm3 0.0-0.2 MANUAL DIFF REQUIRED (test code=MDIFF) NO, ONLY SCAN NEEDED DIFFERENTIAL [id number] 22:40:00* Test Item Value Reference Range Comments STAIN ACCEPTABILITY (test code=STN ACCEPTABLE) STAIN ACCEPTABLE MORPHOLOGY COMMENT (test code=MOC) NORMAL PLATELET ESTIMATE (test code=PLTEST) ADEQUATE PLATELET MORPHOLOGY (test code=PLTMORPH) SIZE VARIABLE GESTATION SCREEN [id number] 21:25:00* Test Item Value Reference Range Comments GESTATION SCREEN GLUCOSE (test code=GLU1S) 72 mg/mL 90-140 CBC W/AUTO [id number] 20:31:00* Test Item Value Reference Range Comments WHITE BLOOD CELL (test code=WBC) 9.7 K/mm3 4.5-12.5 RED BLOOD CELL (test code=RBC) 3.57 mill/mm3 3.7-5.2 HEMOGLOBIN (test code=HGB) 8.6 gram/dL 11.5-15.5 HEMATOCRIT (test code=HCT) 31.6 % 36.0-46.0 MEAN CELL VOLUME (test code=MCV) 88.5 fL 80-98 MEAN CELL HGB (test code=MCH) 24.1 picogram 27.0-33.0 MEAN CELL HGB CONCETRATION (test code=MCHC) 27.2 gram/dL 33.0-36.0 RED CELL DISTRIBUTION WIDTH (test code=RDW) 14.0 % 11.6-16.2 PLATELET COUNT (test code=PLT) 371 K/mm3 150-450 MEAN PLATELET VOLUME (test code=MPV) 10.7 fL 6.7-11.0 NEUTROPHIL % (test code=NT%) 72.9 % 39.0-69.0 LYMPHOCYTE % (test code=LY%) 19.9 % 25.0-55.0 MONOCYTE % (test code=MO%) 5.1 % 0.0-10.0 EOSINOPHIL % (test code=EO%) 1.4 % 0.0-5.0 BASOPHIL % (test code=BA%) 0.3 % 0.0-1.0 NEUTROPHIL # (test code=NT#) 7.06 K/mm3 1.8-7.7 LYMPHOCYTE # (test code=LY#) 1.93 K/mm3 1.0-5.0 MONOCYTE # (test code=MO#) 0.49 K/mm3 0-0.8 EOSINOPHIL # (test code=EO#) 0.14 K/mm3 0.0-0.5 BASOPHIL # (test code=BA#) 0.03 K/mm3 0.0-0.2 MANUAL DIFF REQUIRED (test code=MDIFF) NO, ONLY SCAN NEEDED DIFFERENTIAL [id number] 20:31:00* Test Item Value Reference Range Comments STAIN ACCEPTABILITY (test code=STN ACCEPTABLE) CABOT RINGS (test code=CAB) MORPHOLOGY COMMENT (test code=MOC) PLATELET ESTIMATE (test code=PLTEST) PLATELET MORPHOLOGY (test code=PLTMORPH) CBC W/AUTO [id number] 20:31:00* Test Item Value Reference Range Comments WHITE BLOOD CELL (test code=WBC) 9.7 K/mm3 4.5-12.5 RED BLOOD CELL (test code=RBC) 3.57 mill/mm3 3.7-5.2 HEMOGLOBIN (test code=HGB) 8.6 gram/dL 11.5-15.5 HEMATOCRIT (test code=HCT) 31.6 % 36.0-46.0 MEAN CELL VOLUME (test code=MCV) 88.5 fL 80-98 MEAN CELL HGB (test code=MCH) 24.1 picogram 27.0-33.0 MEAN CELL HGB CONCETRATION (test code=MCHC) 27.2 gram/dL 33.0-36.0 RED CELL DISTRIBUTION WIDTH (test code=RDW) 14.0 % 11.6-16.2 PLATELET COUNT (test code=PLT) 371 K/mm3 150-450 MEAN PLATELET VOLUME (test code=MPV) 10.7 fL 6.7-11.0 NEUTROPHIL % (test code=NT%) 72.9 % 39.0-69.0 LYMPHOCYTE % (test code=LY%) 19.9 % 25.0-55.0 MONOCYTE % (test code=MO%) 5.1 % 0.0-10.0 EOSINOPHIL % (test code=EO%) 1.4 % 0.0-5.0 BASOPHIL % (test code=BA%) 0.3 % 0.0-1.0 NEUTROPHIL # (test code=NT#) 7.06 K/mm3 1.8-7.7 LYMPHOCYTE # (test code=LY#) 1.93 K/mm3 1.0-5.0 MONOCYTE # (test code=MO#) 0.49 K/mm3 0-0.8 EOSINOPHIL # (test code=EO#) 0.14 K/mm3 0.0-0.5 BASOPHIL # (test code=BA#) 0.03 K/mm3 0.0-0.2 MANUAL DIFF REQUIRED (test code=MDIFF) NO, ONLY SCAN NEEDED DIFFERENTIAL [id number] 20:31:00* Test Item Value Reference Range Comments STAIN ACCEPTABILITY (test code=STN ACCEPTABLE) CABOT RINGS (test code=CAB) MORPHOLOGY COMMENT (test code=MOC) PLATELET ESTIMATE (test code=PLTEST) PLATELET MORPHOLOGY (test code=PLTMORPH) CBC W/AUTO [id number] 20:31:00* Test Item Value Reference Range Comments WHITE BLOOD CELL (test code=WBC) 9.7 K/mm3 4.5-12.5 RED BLOOD CELL (test code=RBC) 3.57 mill/mm3 3.7-5.2 HEMOGLOBIN (test code=HGB) 8.6 gram/dL 11.5-15.5 HEMATOCRIT (test code=HCT) 31.6 % 36.0-46.0 MEAN CELL VOLUME (test code=MCV) 88.5 fL 80-98 MEAN CELL HGB (test code=MCH) 24.1 picogram 27.0-33.0 MEAN CELL HGB CONCETRATION (test code=MCHC) 27.2 gram/dL 33.0-36.0 RED CELL DISTRIBUTION WIDTH (test code=RDW) 14.0 % 11.6-16.2 PLATELET COUNT (test code=PLT) 371 K/mm3 150-450 MEAN PLATELET VOLUME (test code=MPV) 10.7 fL 6.7-11.0 NEUTROPHIL % (test code=NT%) 72.9 % 39.0-69.0 LYMPHOCYTE % (test code=LY%) 19.9 % 25.0-55.0 MONOCYTE % (test code=MO%) 5.1 % 0.0-10.0 EOSINOPHIL % (test code=EO%) 1.4 % 0.0-5.0 BASOPHIL % (test code=BA%) 0.3 % 0.0-1.0 NEUTROPHIL # (test code=NT#) 7.06 K/mm3 1.8-7.7 LYMPHOCYTE # (test code=LY#) 1.93 K/mm3 1.0-5.0 MONOCYTE # (test code=MO#) 0.49 K/mm3 0-0.8 EOSINOPHIL # (test code=EO#) 0.14 K/mm3 0.0-0.5 BASOPHIL # (test code=BA#) 0.03 K/mm3 0.0-0.2 MANUAL DIFF REQUIRED (test code=MDIFF) NO, ONLY SCAN NEEDED DIFFERENTIAL [id number] 20:31:00* Test Item Value Reference Range Comments STAIN ACCEPTABILITY (test code=STN ACCEPTABLE) MORPHOLOGY COMMENT (test code=MOC) PLATELET ESTIMATE (test code=PLTEST) PLATELET MORPHOLOGY (test code=PLTMORPH) CBC W/AUTO [id number] 20:31:00* Test Item Value Reference Range Comments WHITE BLOOD CELL (test code=WBC) 9.7 K/mm3 4.5-12.5 RED BLOOD CELL (test code=RBC) 3.57 mill/mm3 3.7-5.2 HEMOGLOBIN (test code=HGB) 8.6 gram/dL 11.5-15.5 HEMATOCRIT (test code=HCT) 31.6 % 36.0-46.0 MEAN CELL VOLUME (test code=MCV) 88.5 fL 80-98 MEAN CELL HGB (test code=MCH) 24.1 picogram 27.0-33.0 MEAN CELL HGB CONCETRATION (test code=MCHC) 27.2 gram/dL 33.0-36.0 RED CELL DISTRIBUTION WIDTH (test code=RDW) 14.0 % 11.6-16.2 PLATELET COUNT (test code=PLT) 371 K/mm3 150-450 MEAN PLATELET VOLUME (test code=MPV) 10.7 fL 6.7-11.0 NEUTROPHIL % (test code=NT%) 72.9 % 39.0-69.0 LYMPHOCYTE % (test code=LY%) 19.9 % 25.0-55.0 MONOCYTE % (test code=MO%) 5.1 % 0.0-10.0 EOSINOPHIL % (test code=EO%) 1.4 % 0.0-5.0 BASOPHIL % (test code=BA%) 0.3 % 0.0-1.0 NEUTROPHIL # (test code=NT#) 7.06 K/mm3 1.8-7.7 LYMPHOCYTE # (test code=LY#) 1.93 K/mm3 1.0-5.0 MONOCYTE # (test code=MO#) 0.49 K/mm3 0-0.8 EOSINOPHIL # (test code=EO#) 0.14 K/mm3 0.0-0.5 BASOPHIL # (test code=BA#) 0.03 K/mm3 0.0-0.2 MANUAL DIFF REQUIRED (test code=MDIFF) NO, ONLY SCAN NEEDED DIFFERENTIAL [id number] 20:31:00* Test Item Value Reference Range Comments STAIN ACCEPTABILITY (test code=STN ACCEPTABLE) CABOT RINGS (test code=CAB) MORPHOLOGY COMMENT (test code=MOC) PLATELET ESTIMATE (test code=PLTEST) PLATELET MORPHOLOGY (test code=PLTMORPH) UA GLUCOSE DIPSTIC [id number] 13:01:00* Test Item Value Reference Range Comments UA GLUCOSE DIPSTIC POC (test code=GLUUP) Negative Negative UA GLU: NEGATIVEKET UA NEGATIVEPH UA 6.0UA NIT NegativePROT UA 15 (TRACE)BL UA N EGATIVEUA NENO NegativeTime performed: 0910UA KETONE DIPSTICK [id number] 13:01:00* Test Item Value Reference Range Comments UA KETONE DIPSTICK POC (test code=KETUP) Negative UA GLU: NEGATIVEKET UA NEGATIVEPH UA 6.0UA NIT NegativePROT UA 15 (TRACE)BL UA N EGATIVEUA NENO NegativeTime performed: 0910UA BLOOD DIPSTIC [id number] 13:01:00* Test Item Value Reference Range Comments UA BLOOD DIPSTIC POC (test code=BLUP) NEGATIVE UA GLU: NEGATIVEKET UA NEGATIVEPH UA 6.0UA NIT NegativePROT UA 15 (TRACE)BL UA N EGATIVEUA NENO NegativeTime performed: 0910UA PH DIPSTIC [id number] 13:01:00* Test Item Value Reference Range Comments UA PH DIPSTIC POC (test code=PHUP) 5-8 UA GLU: NEGATIVEKET UA NEGATIVEPH UA 6.0UA NIT NegativePROT UA 15 (TRACE)BL UA N EGATIVEUA NENO NegativeTime performed: 0910UA PROTEIN DIPSTICK [id number] 13:01:00* Test Item Value Reference Range Comments UA PROTEIN DIPSTICK POC (test code=DPROUP) Neg -15 UA GLU: NEGATIVEKET UA NEGATIVEPH UA 6.0UA NIT NegativePROT UA 15 (TRACE)BL UA N EGATIVEUA NENO NegativeTime performed: NITRITE DIPSTICK [id number] 13:01:00* Test Item Value Reference Range Comments UA NITRITE DIPSTICK POC (test code=NITUP) Negative UA GLU: NEGATIVEKET UA NEGATIVEPH UA 6.0UA NIT NegativePROT UA 15 (TRACE)BL UA N EGATIVEUA NENO NegativeTime performed: LEUKOCYTE ESTERASE [id number] 13:01:00* Test Item Value Reference Range Comments UA LEUKOCYTE ESTERASE POC (test code=LEUUPOC) NEGATIVE UA GLU: NEGATIVEKET UA NEGATIVEPH UA 6.0UA NIT NegativePROT UA 15 (TRACE)BL UA N EGATIVEUA NENO NegativeTime performed: GLUCOSE DIPSTIC [id number] 13:01:00* Test Item Value Reference Range Comments UA GLUCOSE DIPSTIC POC (test code=GLUUP) Negative Negative UA GLU: NEGATIVEKET UA NEGATIVEPH UA 6.0UA NIT NegativePROT UA 15 (TRACE)BL UA N EGATIVEUA NENO NegativeTime performed: KETONE DIPSTICK [id number] 13:01:00* Test Item Value Reference Range Comments UA KETONE DIPSTICK POC (test code=KETUP) Negative Negative UA GLU: NEGATIVEKET UA NEGATIVEPH UA 6.0UA NIT NegativePROT UA 15 (TRACE)BL UA N EGATIVEUA NENO NegativeTime performed: BLOOD DIPSTIC [id number] 13:01:00* Test Item Value Reference Range Comments UA BLOOD DIPSTIC POC (test code=BLUP) NEGATIVE UA GLU: NEGATIVEKET UA NEGATIVEPH UA 6.0UA NIT NegativePROT UA 15 (TRACE)BL UA N EGATIVEUA NENO NegativeTime performed: PH DIPSTIC [id number] 13:01:00* Test Item Value Reference Range Comments UA PH DIPSTIC POC (test code=PHUP) 5-8 UA GLU: NEGATIVEKET UA NEGATIVEPH UA 6.0UA NIT NegativePROT UA 15 (TRACE)BL UA N EGATIVEUA NENO NegativeTime performed: PROTEIN DIPSTICK [id number] 13:01:00* Test Item Value Reference Range Comments UA PROTEIN DIPSTICK POC (test code=DPROUP) Neg -15 UA GLU: NEGATIVEKET UA NEGATIVEPH UA 6.0UA NIT NegativePROT UA 15 (TRACE)BL UA N EGATIVEUA NENO NegativeTime performed: NITRITE DIPSTICK [id number] 13:01:00* Test Item Value Reference Range Comments UA NITRITE DIPSTICK POC (test code=NITUP) Negative UA GLU: NEGATIVEKET UA NEGATIVEPH UA 6.0UA NIT NegativePROT UA 15 (TRACE)BL UA N EGATIVEUA NENO NegativeTime performed: LEUKOCYTE ESTERASE [id number] 13:01:00* Test Item Value Reference Range Comments UA LEUKOCYTE ESTERASE POC (test code=LEUUPOC) NEGATIVE UA GLU: NEGATIVEKET UA NEGATIVEPH UA 6.0UA NIT NegativePROT UA 15 (TRACE)BL UA N EGATIVEUA NENO NegativeTime performed: GLUCOSE DIPSTIC [id number] 13:01:00* Test Item Value Reference Range Comments UA GLUCOSE DIPSTIC POC (test code=GLUUP) Negative Negative UA GLU: NEGATIVEKET UA NEGATIVEPH UA 6.0UA NIT NegativePROT UA 15 (TRACE)BL UA N EGATIVEUA NENO NegativeTime performed: KETONE DIPSTICK [id number] 13:01:00* Test Item Value Reference Range Comments UA KETONE DIPSTICK POC (test code=KETUP) Negative Negative UA GLU: NEGATIVEKET UA NEGATIVEPH UA 6.0UA NIT NegativePROT UA 15 (TRACE)BL UA N EGATIVEUA NENO NegativeTime performed: BLOOD DIPSTIC [id number] 13:01:00* Test Item Value Reference Range Comments UA BLOOD DIPSTIC POC (test code=BLUP) Negative NEGATIVE UA GLU: NEGATIVEKET UA NEGATIVEPH UA 6.0UA NIT NegativePROT UA 15 (TRACE)BL UA N EGATIVEUA NENO NegativeTime performed: PH DIPSTIC [id number] 13:01:00* Test Item Value Reference Range Comments UA PH DIPSTIC POC (test code=PHUP) 5-8 UA GLU: NEGATIVEKET UA NEGATIVEPH UA 6.0UA NIT NegativePROT UA 15 (TRACE)BL UA N EGATIVEUA NENO NegativeTime performed: PROTEIN DIPSTICK [id number] 13:01:00* Test Item Value Reference Range Comments UA PROTEIN DIPSTICK POC (test code=DPROUP) Neg -15 UA GLU: NEGATIVEKET UA NEGATIVEPH UA 6.0UA NIT NegativePROT UA 15 (TRACE)BL UA N EGATIVEUA NENO NegativeTime performed: NITRITE DIPSTICK [id number] 13:01:00* Test Item Value Reference Range Comments UA NITRITE DIPSTICK POC (test code=NITUP) Negative UA GLU: NEGATIVEKET UA NEGATIVEPH UA 6.0UA NIT NegativePROT UA 15 (TRACE)BL UA N EGATIVEUA NENO NegativeTime performed: LEUKOCYTE ESTERASE [id number] 13:01:00* Test Item Value Reference Range Comments UA LEUKOCYTE ESTERASE POC (test code=LEUUPOC) NEGATIVE UA GLU: NEGATIVEKET UA NEGATIVEPH UA 6.0UA NIT NegativePROT UA 15 (TRACE)BL UA N EGATIVEUA NENO NegativeTime performed: GLUCOSE DIPSTIC [id number] 13:01:00* Test Item Value Reference Range Comments UA GLUCOSE DIPSTIC POC (test code=GLUUP) Negative Negative UA GLU: NEGATIVEKET UA NEGATIVEPH UA 6.0UA NIT NegativePROT UA 15 (TRACE)BL UA N EGATIVEUA NENO NegativeTime performed: KETONE DIPSTICK [id number] 13:01:00* Test Item Value Reference Range Comments UA KETONE DIPSTICK POC (test code=KETUP) Negative Negative UA GLU: NEGATIVEKET UA NEGATIVEPH UA 6.0UA NIT NegativePROT UA 15 (TRACE)BL UA N EGATIVEUA NENO NegativeTime performed: BLOOD DIPSTIC [id number] 13:01:00* Test Item Value Reference Range Comments UA BLOOD DIPSTIC POC (test code=BLUP) Negative NEGATIVE UA GLU: NEGATIVEKET UA NEGATIVEPH UA 6.0UA NIT NegativePROT UA 15 (TRACE)BL UA N EGATIVEUA NENO NegativeTime performed: PH DIPSTIC [id number] 13:01:00* Test Item Value Reference Range Comments UA PH DIPSTIC POC (test code=PHUP) 6 5-8 UA GLU: NEGATIVEKET UA NEGATIVEPH UA 6.0UA NIT NegativePROT UA 15 (TRACE)BL UA N EGATIVEUA NENO NegativeTime performed: 0910UA PROTEIN DIPSTICK [id number] 13:01:00* Test Item Value Reference Range Comments UA PROTEIN DIPSTICK POC (test code=DPROUP) Neg -15 UA GLU: NEGATIVEKET UA NEGATIVEPH UA 6.0UA NIT NegativePROT UA 15 (TRACE)BL UA N EGATIVEUA NENO NegativeTime performed: NITRITE DIPSTICK [id number] 13:01:00* Test Item Value Reference Range Comments UA NITRITE DIPSTICK POC (test code=NITUP) Negative UA GLU: NEGATIVEKET UA NEGATIVEPH UA 6.0UA NIT NegativePROT UA 15 (TRACE)BL UA N EGATIVEUA NENO NegativeTime performed: LEUKOCYTE ESTERASE [id number] 13:01:00* Test Item Value Reference Range Comments UA LEUKOCYTE ESTERASE POC (test code=LEUUPOC) NEGATIVE UA GLU: NEGATIVEKET UA NEGATIVEPH UA 6.0UA NIT NegativePROT UA 15 (TRACE)BL UA N EGATIVEUA NENO NegativeTime performed: GLUCOSE DIPSTIC [id number] 13:01:00* Test Item Value Reference Range Comments UA GLUCOSE DIPSTIC POC (test code=GLUUP) Negative Negative UA GLU: NEGATIVEKET UA NEGATIVEPH UA 6.0UA NIT NegativePROT UA 15 (TRACE)BL UA N EGATIVEUA NENO NegativeTime performed: KETONE DIPSTICK [id number] 13:01:00* Test Item Value Reference Range Comments UA KETONE DIPSTICK POC (test code=KETUP) Negative Negative UA GLU: NEGATIVEKET UA NEGATIVEPH UA 6.0UA NIT NegativePROT UA 15 (TRACE)BL UA N EGATIVEUA NENO NegativeTime performed: BLOOD DIPSTIC [id number] 13:01:00* Test Item Value Reference Range Comments UA BLOOD DIPSTIC POC (test code=BLUP) Negative NEGATIVE UA GLU: NEGATIVEKET UA NEGATIVEPH UA 6.0UA NIT NegativePROT UA 15 (TRACE)BL UA N EGATIVEUA NENO NegativeTime performed: PH DIPSTIC [id number] 13:01:00* Test Item Value Reference Range Comments UA PH DIPSTIC POC (test code=PHUP) 6 5-8 UA GLU: NEGATIVEKET UA NEGATIVEPH UA 6.0UA NIT NegativePROT UA 15 (TRACE)BL UA N EGATIVEUA NENO NegativeTime performed: PROTEIN DIPSTICK [id number] 13:01:00* Test Item Value Reference Range Comments UA PROTEIN DIPSTICK POC (test code=DPROUP) 15 (Trace) Neg -15 UA GLU: NEGATIVEKET UA NEGATIVEPH UA 6.0UA NIT NegativePROT UA 15 (TRACE)BL UA N EGATIVEUA NENO NegativeTime performed: NITRITE DIPSTICK [id number] 13:01:00* Test Item Value Reference Range Comments UA NITRITE DIPSTICK POC (test code=NITUP) Negative UA GLU: NEGATIVEKET UA NEGATIVEPH UA 6.0UA NIT NegativePROT UA 15 (TRACE)BL UA N EGATIVEUA NENO NegativeTime performed: LEUKOCYTE ESTERASE [id number] 13:01:00* Test Item Value Reference Range Comments UA LEUKOCYTE ESTERASE POC (test code=LEUUPOC) NEGATIVE UA GLU: NEGATIVEKET UA NEGATIVEPH UA 6.0UA NIT NegativePROT UA 15 (TRACE)BL UA N EGATIVEUA NENO NegativeTime performed: GLUCOSE DIPSTIC [id number] 13:01:00* Test Item Value Reference Range Comments UA GLUCOSE DIPSTIC POC (test code=GLUUP) Negative Negative UA GLU: NEGATIVEKET UA NEGATIVEPH UA 6.0UA NIT NegativePROT UA 15 (TRACE)BL UA N EGATIVEUA NENO NegativeTime performed: KETONE DIPSTICK [id number] 13:01:00* Test Item Value Reference Range Comments UA KETONE DIPSTICK POC (test code=KETUP) Negative Negative UA GLU: NEGATIVEKET UA NEGATIVEPH UA 6.0UA NIT NegativePROT UA 15 (TRACE)BL UA N EGATIVEUA NENO NegativeTime performed: BLOOD DIPSTIC [id number] 13:01:00* Test Item Value Reference Range Comments UA BLOOD DIPSTIC POC (test code=BLUP) Negative NEGATIVE UA GLU: NEGATIVEKET UA NEGATIVEPH UA 6.0UA NIT NegativePROT UA 15 (TRACE)BL UA N EGATIVEUA NENO NegativeTime performed: PH DIPSTIC [id number] 13:01:00* Test Item Value Reference Range Comments UA PH DIPSTIC POC (test code=PHUP) 6 5-8 UA GLU: NEGATIVEKET UA NEGATIVEPH UA 6.0UA NIT NegativePROT UA 15 (TRACE)BL UA N EGATIVEUA NENO NegativeTime performed: PROTEIN DIPSTICK [id number] 13:01:00* Test Item Value Reference Range Comments UA PROTEIN DIPSTICK POC (test code=DPROUP) 15 (Trace) Neg -15 UA GLU: NEGATIVEKET UA NEGATIVEPH UA 6.0UA NIT NegativePROT UA 15 (TRACE)BL UA N EGATIVEUA NENO NegativeTime performed: NITRITE DIPSTICK [id number] 13:01:00* Test Item Value Reference Range Comments UA NITRITE DIPSTICK POC (test code=NITUP) Negative Negative UA GLU: NEGATIVEKET UA NEGATIVEPH UA 6.0UA NIT NegativePROT UA 15 (TRACE)BL UA N EGATIVEUA NENO NegativeTime performed: LEUKOCYTE ESTERASE [id number] 13:01:00* Test Item Value Reference Range Comments UA LEUKOCYTE ESTERASE POC (test code=LEUUPOC) NEGATIVE UA GLU: NEGATIVEKET UA NEGATIVEPH UA 6.0UA NIT NegativePROT UA 15 (TRACE)BL UA N EGATIVEUA NENO NegativeTime performed: GLUCOSE DIPSTIC [id number] 13:01:00* Test Item Value Reference Range Comments UA GLUCOSE DIPSTIC POC (test code=GLUUP) Negative Negative UA GLU: NEGATIVEKET UA NEGATIVEPH UA 6.0UA NIT NegativePROT UA 15 (TRACE)BL UA N EGATIVEUA NENO NegativeTime performed: KETONE DIPSTICK [id number] 13:01:00* Test Item Value Reference Range Comments UA KETONE DIPSTICK POC (test code=KETUP) Negative Negative UA GLU: NEGATIVEKET UA NEGATIVEPH UA 6.0UA NIT NegativePROT UA 15 (TRACE)BL UA N EGATIVEUA NENO NegativeTime performed: BLOOD DIPSTIC [id number] 13:01:00* Test Item Value Reference Range Comments UA BLOOD DIPSTIC POC (test code=BLUP) Negative NEGATIVE UA GLU: NEGATIVEKET UA NEGATIVEPH UA 6.0UA NIT NegativePROT UA 15 (TRACE)BL UA N EGATIVEUA NENO NegativeTime performed: PH DIPSTIC [id number] 13:01:00* Test Item Value Reference Range Comments UA PH DIPSTIC POC (test code=PHUP) 6 5-8 UA GLU: NEGATIVEKET UA NEGATIVEPH UA 6.0UA NIT NegativePROT UA 15 (TRACE)BL UA N EGATIVEUA NENO NegativeTime performed: PROTEIN DIPSTICK [id number] 13:01:00* Test Item Value Reference Range Comments UA PROTEIN DIPSTICK POC (test code=DPROUP) 15 (Trace) Neg -15 UA GLU: NEGATIVEKET UA NEGATIVEPH UA 6.0UA NIT NegativePROT UA 15 (TRACE)BL UA N EGATIVEUA NENO NegativeTime performed: NITRITE DIPSTICK [id number] 13:01:00* Test Item Value Reference Range Comments UA NITRITE DIPSTICK POC (test code=NITUP) Negative Negative UA GLU: NEGATIVEKET UA NEGATIVEPH UA 6.0UA NIT NegativePROT UA 15 (TRACE)BL UA N EGATIVEUA NENO NegativeTime performed: LEUKOCYTE ESTERASE [id number] 13:01:00* Test Item Value Reference Range Comments UA LEUKOCYTE ESTERASE POC (test code=LEUUPOC) NEGATIVE NEGATIVE UA GLU: NEGATIVEKET UA NEGATIVEPH UA 6.0UA NIT NegativePROT UA 15 (TRACE)BL UA N EGATIVEUA NENO NegativeTime performed: GLUCOSE DIPSTIC [id number] 14:43:00* Test Item Value Reference Range Comments UA GLUCOSE DIPSTIC POC (test code=GLUUP) Negative Negative UA GLU: NEGATIVEKET UA NEGATIVEPH UA 5.0UA NIT NegativePROT UA NEGATIVEBL UA NEG ATIVEUA NENO TraceTime performed: KETONE DIPSTICK [id number] 14:43:00* Test Item Value Reference Range Comments UA KETONE DIPSTICK POC (test code=KETUP) Negative UA GLU: NEGATIVEKET UA NEGATIVEPH UA 5.0UA NIT NegativePROT UA NEGATIVEBL UA NEG ATIVEUA NENO TraceTime performed: BLOOD DIPSTIC [id number] 14:43:00* Test Item Value Reference Range Comments UA BLOOD DIPSTIC POC (test code=BLUP) NEGATIVE UA GLU: NEGATIVEKET UA NEGATIVEPH UA 5.0UA NIT NegativePROT UA NEGATIVEBL UA NEG ATIVEUA NENO TraceTime performed: PH DIPSTIC [id number] 14:43:00* Test Item Value Reference Range Comments UA PH DIPSTIC POC (test code=PHUP) 5-8 UA GLU: NEGATIVEKET UA NEGATIVEPH UA 5.0UA NIT NegativePROT UA NEGATIVEBL UA NEG ATIVEUA NENO TraceTime performed: PROTEIN DIPSTICK [id number] 14:43:00 * Test Item Value Reference Range Comments UA PROTEIN DIPSTICK POC (test code=DPROUP) Neg -15 UA GLU: NEGATIVEKET UA NEGATIVEPH UA 5.0UA NIT NegativePROT UA NEGATIVEBL UA NEG ATIVEUA NENO TraceTime performed: NITRITE DIPSTICK [id number] 14:43:00 * Test Item Value Reference Range Comments UA NITRITE DIPSTICK POC (test code=NITUP) Negative UA GLU: NEGATIVEKET UA NEGATIVEPH UA 5.0UA NIT NegativePROT UA NEGATIVEBL UA NEG ATIVEUA NENO TraceTime performed: LEUKOCYTE ESTERASE [id number] 14:43:00* Test Item Value Reference Range Comments UA LEUKOCYTE ESTERASE POC (test code=LEUUPOC) NEGATIVE UA GLU: NEGATIVEKET UA NEGATIVEPH UA 5.0UA NIT NegativePROT UA NEGATIVEBL UA NEG ATIVEUA NENO TraceTime performed: GLUCOSE DIPSTIC [id number] 14:43:00* Test Item Value Reference Range Comments UA GLUCOSE DIPSTIC POC (test code=GLUUP) Negative Negative UA GLU: NEGATIVEKET UA NEGATIVEPH UA 5.0UA NIT NegativePROT UA NEGATIVEBL UA NEG ATIVEUA NENO TraceTime performed: KETONE DIPSTICK [id number] 14:43:00* Test Item Value Reference Range Comments UA KETONE DIPSTICK POC (test code=KETUP) Negative Negative UA GLU: NEGATIVEKET UA NEGATIVEPH UA 5.0UA NIT NegativePROT UA NEGATIVEBL UA NEG ATIVEUA NENO TraceTime performed: BLOOD DIPSTIC [id number] 14:43:00* Test Item Value Reference Range Comments UA BLOOD DIPSTIC POC (test code=BLUP) NEGATIVE UA GLU: NEGATIVEKET UA NEGATIVEPH UA 5.0UA NIT NegativePROT UA NEGATIVEBL UA NEG ATIVEUA NENO TraceTime performed: PH DIPSTIC [id number] 14:43:00* Test Item Value Reference Range Comments UA PH DIPSTIC POC (test code=PHUP) 5-8 UA GLU: NEGATIVEKET UA NEGATIVEPH UA 5.0UA NIT NegativePROT UA NEGATIVEBL UA NEG ATIVEUA NENO TraceTime performed: PROTEIN DIPSTICK [id number] 14:43:00 * Test Item Value Reference Range Comments UA PROTEIN DIPSTICK POC (test code=DPROUP) Neg -15 UA GLU: NEGATIVEKET UA NEGATIVEPH UA 5.0UA NIT NegativePROT UA NEGATIVEBL UA NEG ATIVEUA NENO TraceTime performed: NITRITE DIPSTICK [id number] 14:43:00 * Test Item Value Reference Range Comments UA NITRITE DIPSTICK POC (test code=NITUP) Negative UA GLU: NEGATIVEKET UA NEGATIVEPH UA 5.0UA NIT NegativePROT UA NEGATIVEBL UA NEG ATIVEUA NENO TraceTime performed: LEUKOCYTE ESTERASE [id number] 14:43:00* Test Item Value Reference Range Comments UA LEUKOCYTE ESTERASE POC (test code=LEUUPOC) NEGATIVE UA GLU: NEGATIVEKET UA NEGATIVEPH UA 5.0UA NIT NegativePROT UA NEGATIVEBL UA NEG ATIVEUA NENO TraceTime performed: GLUCOSE DIPSTIC [id number] 14:43:00* Test Item Value Reference Range Comments UA GLUCOSE DIPSTIC POC (test code=GLUUP) Negative Negative UA GLU: NEGATIVEKET UA NEGATIVEPH UA 5.0UA NIT NegativePROT UA NEGATIVEBL UA NEG ATIVEUA NENO TraceTime performed: KETONE DIPSTICK [id number] 14:43:00* Test Item Value Reference Range Comments UA KETONE DIPSTICK POC (test code=KETUP) Negative Negative UA GLU: NEGATIVEKET UA NEGATIVEPH UA 5.0UA NIT NegativePROT UA NEGATIVEBL UA NEG ATIVEUA NENO TraceTime performed: BLOOD DIPSTIC [id number] 14:43:00* Test Item Value Reference Range Comments UA BLOOD DIPSTIC POC (test code=BLUP) Negative NEGATIVE UA GLU: NEGATIVEKET UA NEGATIVEPH UA 5.0UA NIT NegativePROT UA NEGATIVEBL UA NEG ATIVEUA NENO TraceTime performed: PH DIPSTIC [id number] 14:43:00* Test Item Value Reference Range Comments UA PH DIPSTIC POC (test code=PHUP) 5-8 UA GLU: NEGATIVEKET UA NEGATIVEPH UA 5.0UA NIT NegativePROT UA NEGATIVEBL UA NEG ATIVEUA NENO TraceTime performed: 232UA PROTEIN DIPSTICK [id number] 14:43:00 * Test Item Value Reference Range Comments UA PROTEIN DIPSTICK POC (test code=DPROUP) Neg -15 UA GLU: NEGATIVEKET UA NEGATIVEPH UA 5.0UA NIT NegativePROT UA NEGATIVEBL UA NEG ATIVEUA NENO TraceTime performed: 232UA NITRITE DIPSTICK [id number] 14:43:00 * Test Item Value Reference Range Comments UA NITRITE DIPSTICK POC (test code=NITUP) Negative UA GLU: NEGATIVEKET UA NEGATIVEPH UA 5.0UA NIT NegativePROT UA NEGATIVEBL UA NEG ATIVEUA NENO TraceTime performed: 232UA LEUKOCYTE ESTERASE [id number] 14:43:00* Test Item Value Reference Range Comments UA LEUKOCYTE ESTERASE POC (test code=LEUUPOC) NEGATIVE UA GLU: NEGATIVEKET UA NEGATIVEPH UA 5.0UA NIT NegativePROT UA NEGATIVEBL UA NEG ATIVEUA NENO TraceTime performed: 232UA GLUCOSE DIPSTIC [id number] 14:43:00* Test Item Value Reference Range Comments UA GLUCOSE DIPSTIC POC (test code=GLUUP) Negative Negative UA GLU: NEGATIVEKET UA NEGATIVEPH UA 5.0UA NIT NegativePROT UA NEGATIVEBL UA NEG ATIVEUA NENO TraceTime performed: 232UA KETONE DIPSTICK [id number] 14:43:00* Test Item Value Reference Range Comments UA KETONE DIPSTICK POC (test code=KETUP) Negative Negative UA GLU: NEGATIVEKET UA NEGATIVEPH UA 5.0UA NIT NegativePROT UA NEGATIVEBL UA NEG ATIVEUA NENO TraceTime performed: 232UA BLOOD DIPSTIC [id number] 14:43:00* Test Item Value Reference Range Comments UA BLOOD DIPSTIC POC (test code=BLUP) Negative NEGATIVE UA GLU: NEGATIVEKET UA NEGATIVEPH UA 5.0UA NIT NegativePROT UA NEGATIVEBL UA NEG ATIVEUA NENO TraceTime performed: 232UA PH DIPSTIC [id number] 14:43:00* Test Item Value Reference Range Comments UA PH DIPSTIC POC (test code=PHUP) 5 5-8 UA GLU: NEGATIVEKET UA NEGATIVEPH UA 5.0UA NIT NegativePROT UA NEGATIVEBL UA NEG ATIVEUA NENO TraceTime performed: 232UA PROTEIN DIPSTICK [id number] 14:43:00 * Test Item Value Reference Range Comments UA PROTEIN DIPSTICK POC (test code=DPROUP) Neg -15 UA GLU: NEGATIVEKET UA NEGATIVEPH UA 5.0UA NIT NegativePROT UA NEGATIVEBL UA NEG ATIVEUA NENO TraceTime performed: 232UA NITRITE DIPSTICK [id number] 14:43:00 * Test Item Value Reference Range Comments UA NITRITE DIPSTICK POC (test code=NITUP) Negative UA GLU: NEGATIVEKET UA NEGATIVEPH UA 5.0UA NIT NegativePROT UA NEGATIVEBL UA NEG ATIVEUA NENO TraceTime performed: LEUKOCYTE ESTERASE [id number] 14:43:00* Test Item Value Reference Range Comments UA LEUKOCYTE ESTERASE POC (test code=LEUUPOC) NEGATIVE UA GLU: NEGATIVEKET UA NEGATIVEPH UA 5.0UA NIT NegativePROT UA NEGATIVEBL UA NEG ATIVEUA NENO TraceTime performed: GLUCOSE DIPSTIC [id number] 14:43:00* Test Item Value Reference Range Comments UA GLUCOSE DIPSTIC POC (test code=GLUUP) Negative Negative UA GLU: NEGATIVEKET UA NEGATIVEPH UA 5.0UA NIT NegativePROT UA NEGATIVEBL UA NEG ATIVEUA NENO TraceTime performed: KETONE DIPSTICK [id number] 14:43:00* Test Item Value Reference Range Comments UA KETONE DIPSTICK POC (test code=KETUP) Negative Negative UA GLU: NEGATIVEKET UA NEGATIVEPH UA 5.0UA NIT NegativePROT UA NEGATIVEBL UA NEG ATIVEUA NENO TraceTime performed: 232UA BLOOD DIPSTIC [id number] 14:43:00* Test Item Value Reference Range Comments UA BLOOD DIPSTIC POC (test code=BLUP) Negative NEGATIVE UA GLU: NEGATIVEKET UA NEGATIVEPH UA 5.0UA NIT NegativePROT UA NEGATIVEBL UA NEG ATIVEUA NENO TraceTime performed: 232UA PH DIPSTIC [id number] 14:43:00* Test Item Value Reference Range Comments UA PH DIPSTIC POC (test code=PHUP) 5 5-8 UA GLU: NEGATIVEKET UA NEGATIVEPH UA 5.0UA NIT NegativePROT UA NEGATIVEBL UA NEG ATIVEUA NENO TraceTime performed: 232UA PROTEIN DIPSTICK [id number] 14:43:00 * Test Item Value Reference Range Comments UA PROTEIN DIPSTICK POC (test code=DPROUP) Negative Neg -15 UA GLU: NEGATIVEKET UA NEGATIVEPH UA 5.0UA NIT NegativePROT UA NEGATIVEBL UA NEG ATIVEUA NENO TraceTime performed: NITRITE DIPSTICK [id number] 14:43:00 * Test Item Value Reference Range Comments UA NITRITE DIPSTICK POC (test code=NITUP) Negative UA GLU: NEGATIVEKET UA NEGATIVEPH UA 5.0UA NIT NegativePROT UA NEGATIVEBL UA NEG ATIVEUA NENO TraceTime performed: 3 LEUKOCYTE ESTERASE [id number] 14:43:00* Test Item Value Reference Range Comments UA LEUKOCYTE ESTERASE POC (test code=LEUUPOC) NEGATIVE UA GLU: NEGATIVEKET UA NEGATIVEPH UA 5.0UA NIT NegativePROT UA NEGATIVEBL UA NEG ATIVEUA NENO TraceTime performed: GLUCOSE DIPSTIC [id number] 14:43:00* Test Item Value Reference Range Comments UA GLUCOSE DIPSTIC POC (test code=GLUUP) Negative Negative UA GLU: NEGATIVEKET UA NEGATIVEPH UA 5.0UA NIT NegativePROT UA NEGATIVEBL UA NEG ATIVEUA NENO TraceTime performed: KETONE DIPSTICK [id number] 14:43:00* Test Item Value Reference Range Comments UA KETONE DIPSTICK POC (test code=KETUP) Negative Negative UA GLU: NEGATIVEKET UA NEGATIVEPH UA 5.0UA NIT NegativePROT UA NEGATIVEBL UA NEG ATIVEUA NENO TraceTime performed: BLOOD DIPSTIC [id number] 14:43:00* Test Item Value Reference Range Comments UA BLOOD DIPSTIC POC (test code=BLUP) Negative NEGATIVE UA GLU: NEGATIVEKET UA NEGATIVEPH UA 5.0UA NIT NegativePROT UA NEGATIVEBL UA NEG ATIVEUA NENO TraceTime performed: PH DIPSTIC [id number] 14:43:00* Test Item Value Reference Range Comments UA PH DIPSTIC POC (test code=PHUP) 5 5-8 UA GLU: NEGATIVEKET UA NEGATIVEPH UA 5.0UA NIT NegativePROT UA NEGATIVEBL UA NEG ATIVEUA NENO TraceTime performed: PROTEIN DIPSTICK [id number] 14:43:00 * Test Item Value Reference Range Comments UA PROTEIN DIPSTICK POC (test code=DPROUP) Negative Neg -15 UA GLU: NEGATIVEKET UA NEGATIVEPH UA 5.0UA NIT NegativePROT UA NEGATIVEBL UA NEG ATIVEUA NENO TraceTime performed: NITRITE DIPSTICK [id number] 14:43:00 * Test Item Value Reference Range Comments UA NITRITE DIPSTICK POC (test code=NITUP) Negative Negative UA GLU: NEGATIVEKET UA NEGATIVEPH UA 5.0UA NIT NegativePROT UA NEGATIVEBL UA NEG ATIVEUA NENO TraceTime performed: LEUKOCYTE ESTERASE [id number] 14:43:00* Test Item Value Reference Range Comments UA LEUKOCYTE ESTERASE POC (test code=LEUUPOC) NEGATIVE UA GLU: NEGATIVEKET UA NEGATIVEPH UA 5.0UA NIT NegativePROT UA NEGATIVEBL UA NEG ATIVEUA NENO TraceTime performed: GLUCOSE DIPSTIC [id number] 14:43:00* Test Item Value Reference Range Comments UA GLUCOSE DIPSTIC POC (test code=GLUUP) Negative Negative UA GLU: NEGATIVEKET UA NEGATIVEPH UA 5.0UA NIT NegativePROT UA NEGATIVEBL UA NEG ATIVEUA NENO TraceTime performed: KETONE DIPSTICK [id number] 14:43:00* Test Item Value Reference Range Comments UA KETONE DIPSTICK POC (test code=KETUP) Negative Negative UA GLU: NEGATIVEKET UA NEGATIVEPH UA 5.0UA NIT NegativePROT UA NEGATIVEBL UA NEG ATIVEUA NENO TraceTime performed: BLOOD DIPSTIC [id number] 14:43:00* Test Item Value Reference Range Comments UA BLOOD DIPSTIC POC (test code=BLUP) Negative NEGATIVE UA GLU: NEGATIVEKET UA NEGATIVEPH UA 5.0UA NIT NegativePROT UA NEGATIVEBL UA NEG ATIVEUA NENO TraceTime performed: PH DIPSTIC [id number] 14:43:00* Test Item Value Reference Range Comments UA PH DIPSTIC POC (test code=PHUP) 5 5-8 UA GLU: NEGATIVEKET UA NEGATIVEPH UA 5.0UA NIT NegativePROT UA NEGATIVEBL UA NEG ATIVEUA NENO TraceTime performed: PROTEIN DIPSTICK [id number] 14:43:00 * Test Item Value Reference Range Comments UA PROTEIN DIPSTICK POC (test code=DPROUP) Negative Neg -15 UA GLU: NEGATIVEKET UA NEGATIVEPH UA 5.0UA NIT NegativePROT UA NEGATIVEBL UA NEG ATIVEUA NENO TraceTime performed: 232UA NITRITE DIPSTICK [id number] 14:43:00 * Test Item Value Reference Range Comments UA NITRITE DIPSTICK POC (test code=NITUP) Negative Negative UA GLU: NEGATIVEKET UA NEGATIVEPH UA 5.0UA NIT NegativePROT UA NEGATIVEBL UA NEG ATIVEUA NENO TraceTime performed: 232UA LEUKOCYTE ESTERASE [id number] 14:43:00* Test Item Value Reference Range Comments UA LEUKOCYTE ESTERASE POC (test code=LEUUPOC) TRACE NEGATIVE UA GLU: NEGATIVEKET UA NEGATIVEPH UA 5.0UA NIT NegativePROT UA NEGATIVEBL UA NEG ATIVEUA NENO TraceTime performed: 232UA GLUCOSE DIPSTIC [id number] 11:36:00* Test Item Value Reference Range Comments UA GLUCOSE DIPSTIC POC (test code=GLUUP) Negative Negative UA GLU: NEGATIVEKET UA NEGATIVEPH UA 5.0UA NIT NegativePROT UA NEGATIVEBL UA NEG ATIVEUA NENO NegativeTime performed: 1111UA KETONE DIPSTICK [id number] 11:36:00* Test Item Value Reference Range Comments UA KETONE DIPSTICK POC (test code=KETUP) Negative UA GLU: NEGATIVEKET UA NEGATIVEPH UA 5.0UA NIT NegativePROT UA NEGATIVEBL UA NEG ATIVEUA NENO NegativeTime performed: 1111UA BLOOD DIPSTIC [id number] 11:36:00 * Test Item Value Reference Range Comments UA BLOOD DIPSTIC POC (test code=BLUP) NEGATIVE UA GLU: NEGATIVEKET UA NEGATIVEPH UA 5.0UA NIT NegativePROT UA NEGATIVEBL UA NEG ATIVEUA NENO NegativeTime performed: 1111UA PH DIPSTIC [id number] 11:36:00* Test Item Value Reference Range Comments UA PH DIPSTIC POC (test code=PHUP) 5-8 UA GLU: NEGATIVEKET UA NEGATIVEPH UA 5.0UA NIT NegativePROT UA NEGATIVEBL UA NEG ATIVEUA NENO NegativeTime performed: 1111UA PROTEIN DIPSTICK [id number] 11:36:00* Test Item Value Reference Range Comments UA PROTEIN DIPSTICK POC (test code=DPROUP) Neg -15 UA GLU: NEGATIVEKET UA NEGATIVEPH UA 5.0UA NIT NegativePROT UA NEGATIVEBL UA NEG ATIVEUA NENO NegativeTime performed: 1111UA NITRITE DIPSTICK [id number] 11:36:00* Test Item Value Reference Range Comments UA NITRITE DIPSTICK POC (test code=NITUP) Negative UA GLU: NEGATIVEKET UA NEGATIVEPH UA 5.0UA NIT NegativePROT UA NEGATIVEBL UA NEG ATIVEUA NENO NegativeTime performed: 1110UA LEUKOCYTE ESTERASE [id number] 11:36:00* Test Item Value Reference Range Comments UA LEUKOCYTE ESTERASE POC (test code=LEUUPOC) NEGATIVE UA GLU: NEGATIVEKET UA NEGATIVEPH UA 5.0UA NIT NegativePROT UA NEGATIVEBL UA NEG ATIVEUA NENO NegativeTime performed: 1111UA GLUCOSE DIPSTIC [id number] 11:36:00* Test Item Value Reference Range Comments UA GLUCOSE DIPSTIC POC (test code=GLUUP) Negative Negative UA GLU: NEGATIVEKET UA NEGATIVEPH UA 5.0UA NIT NegativePROT UA NEGATIVEBL UA NEG ATIVEUA NENO NegativeTime performed: 1110UA KETONE DIPSTICK [id number] 11:36:00* Test Item Value Reference Range Comments UA KETONE DIPSTICK POC (test code=KETUP) Negative Negative UA GLU: NEGATIVEKET UA NEGATIVEPH UA 5.0UA NIT NegativePROT UA NEGATIVEBL UA NEG ATIVEUA NENO NegativeTime performed: 1110UA BLOOD DIPSTIC [id number] 11:36:00 * Test Item Value Reference Range Comments UA BLOOD DIPSTIC POC (test code=BLUP) NEGATIVE UA GLU: NEGATIVEKET UA NEGATIVEPH UA 5.0UA NIT NegativePROT UA NEGATIVEBL UA NEG ATIVEUA NENO NegativeTime performed: 1111UA PH DIPSTIC [id number] 11:36:00* Test Item Value Reference Range Comments UA PH DIPSTIC POC (test code=PHUP) 5-8 UA GLU: NEGATIVEKET UA NEGATIVEPH UA 5.0UA NIT NegativePROT UA NEGATIVEBL UA NEG ATIVEUA NENO NegativeTime performed: 1110UA PROTEIN DIPSTICK [id number] 11:36:00* Test Item Value Reference Range Comments UA PROTEIN DIPSTICK POC (test code=DPROUP) Neg -15 UA GLU: NEGATIVEKET UA NEGATIVEPH UA 5.0UA NIT NegativePROT UA NEGATIVEBL UA NEG ATIVEUA NENO NegativeTime performed: 1110UA NITRITE DIPSTICK [id number] 11:36:00* Test Item Value Reference Range Comments UA NITRITE DIPSTICK POC (test code=NITUP) Negative UA GLU: NEGATIVEKET UA NEGATIVEPH UA 5.0UA NIT NegativePROT UA NEGATIVEBL UA NEG ATIVEUA NENO NegativeTime performed: 1111UA LEUKOCYTE ESTERASE [id number] 11:36:00* Test Item Value Reference Range Comments UA LEUKOCYTE ESTERASE POC (test code=LEUUPOC) NEGATIVE UA GLU: NEGATIVEKET UA NEGATIVEPH UA 5.0UA NIT NegativePROT UA NEGATIVEBL UA NEG ATIVEUA NENO NegativeTime performed: 1111UA GLUCOSE DIPSTIC [id number] 11:36:00* Test Item Value Reference Range Comments UA GLUCOSE DIPSTIC POC (test code=GLUUP) Negative Negative UA GLU: NEGATIVEKET UA NEGATIVEPH UA 5.0UA NIT NegativePROT UA NEGATIVEBL UA NEG ATIVEUA NENO NegativeTime performed: 1111UA KETONE DIPSTICK [id number] 11:36:00* Test Item Value Reference Range Comments UA KETONE DIPSTICK POC (test code=KETUP) Negative Negative UA GLU: NEGATIVEKET UA NEGATIVEPH UA 5.0UA NIT NegativePROT UA NEGATIVEBL UA NEG ATIVEUA NENO NegativeTime performed: 1111UA BLOOD DIPSTIC [id number] 11:36:00 * Test Item Value Reference Range Comments UA BLOOD DIPSTIC POC (test code=BLUP) Negative NEGATIVE UA GLU: NEGATIVEKET UA NEGATIVEPH UA 5.0UA NIT NegativePROT UA NEGATIVEBL UA NEG ATIVEUA NENO NegativeTime performed: 1111UA PH DIPSTIC [id number] 11:36:00* Test Item Value Reference Range Comments UA PH DIPSTIC POC (test code=PHUP) 5-8 UA GLU: NEGATIVEKET UA NEGATIVEPH UA 5.0UA NIT NegativePROT UA NEGATIVEBL UA NEG ATIVEUA NENO NegativeTime performed: 1111UA PROTEIN DIPSTICK [id number] 11:36:00* Test Item Value Reference Range Comments UA PROTEIN DIPSTICK POC (test code=DPROUP) Neg -15 UA GLU: NEGATIVEKET UA NEGATIVEPH UA 5.0UA NIT NegativePROT UA NEGATIVEBL UA NEG ATIVEUA NENO NegativeTime performed: 1111UA NITRITE DIPSTICK [id number] 11:36:00* Test Item Value Reference Range Comments UA NITRITE DIPSTICK POC (test code=NITUP) Negative UA GLU: NEGATIVEKET UA NEGATIVEPH UA 5.0UA NIT NegativePROT UA NEGATIVEBL UA NEG ATIVEUA NENO NegativeTime performed: 1111UA LEUKOCYTE ESTERASE [id number] 11:36:00* Test Item Value Reference Range Comments UA LEUKOCYTE ESTERASE POC (test code=LEUUPOC) NEGATIVE UA GLU: NEGATIVEKET UA NEGATIVEPH UA 5.0UA NIT NegativePROT UA NEGATIVEBL UA NEG ATIVEUA NENO NegativeTime performed: 1111UA GLUCOSE DIPSTIC [id number] 11:36:00* Test Item Value Reference Range Comments UA GLUCOSE DIPSTIC POC (test code=GLUUP) Negative Negative UA GLU: NEGATIVEKET UA NEGATIVEPH UA 5.0UA NIT NegativePROT UA NEGATIVEBL UA NEG ATIVEUA NENO NegativeTime performed: 1111UA KETONE DIPSTICK [id number] 11:36:00* Test Item Value Reference Range Comments UA KETONE DIPSTICK POC (test code=KETUP) Negative Negative UA GLU: NEGATIVEKET UA NEGATIVEPH UA 5.0UA NIT NegativePROT UA NEGATIVEBL UA NEG ATIVEUA NENO NegativeTime performed: 1111UA BLOOD DIPSTIC [id number] 11:36:00 * Test Item Value Reference Range Comments UA BLOOD DIPSTIC POC (test code=BLUP) Negative NEGATIVE UA GLU: NEGATIVEKET UA NEGATIVEPH UA 5.0UA NIT NegativePROT UA NEGATIVEBL UA NEG ATIVEUA NENO NegativeTime performed: 1111UA PH DIPSTIC [id number] 11:36:00* Test Item Value Reference Range Comments UA PH DIPSTIC POC (test code=PHUP) 5 5-8 UA GLU: NEGATIVEKET UA NEGATIVEPH UA 5.0UA NIT NegativePROT UA NEGATIVEBL UA NEG ATIVEUA NENO NegativeTime performed: 1111UA PROTEIN DIPSTICK [id number] 11:36:00* Test Item Value Reference Range Comments UA PROTEIN DIPSTICK POC (test code=DPROUP) Neg -15 UA GLU: NEGATIVEKET UA NEGATIVEPH UA 5.0UA NIT NegativePROT UA NEGATIVEBL UA NEG ATIVEUA NENO NegativeTime performed: 1111UA NITRITE DIPSTICK [id number] 11:36:00* Test Item Value Reference Range Comments UA NITRITE DIPSTICK POC (test code=NITUP) Negative UA GLU: NEGATIVEKET UA NEGATIVEPH UA 5.0UA NIT NegativePROT UA NEGATIVEBL UA NEG ATIVEUA NENO NegativeTime performed: 1111UA LEUKOCYTE ESTERASE [id number] 11:36:00* Test Item Value Reference Range Comments UA LEUKOCYTE ESTERASE POC (test code=LEUUPOC) NEGATIVE UA GLU: NEGATIVEKET UA NEGATIVEPH UA 5.0UA NIT NegativePROT UA NEGATIVEBL UA NEG ATIVEUA NENO NegativeTime performed: 1111UA GLUCOSE DIPSTIC [id number] 11:36:00* Test Item Value Reference Range Comments UA GLUCOSE DIPSTIC POC (test code=GLUUP) Negative Negative UA GLU: NEGATIVEKET UA NEGATIVEPH UA 5.0UA NIT NegativePROT UA NEGATIVEBL UA NEG ATIVEUA NENO NegativeTime performed: 1110UA KETONE DIPSTICK [id number] 11:36:00* Test Item Value Reference Range Comments UA KETONE DIPSTICK POC (test code=KETUP) Negative Negative UA GLU: NEGATIVEKET UA NEGATIVEPH UA 5.0UA NIT NegativePROT UA NEGATIVEBL UA NEG ATIVEUA NENO NegativeTime performed: 1111UA BLOOD DIPSTIC [id number] 11:36:00 * Test Item Value Reference Range Comments UA BLOOD DIPSTIC POC (test code=BLUP) Negative NEGATIVE UA GLU: NEGATIVEKET UA NEGATIVEPH UA 5.0UA NIT NegativePROT UA NEGATIVEBL UA NEG ATIVEUA NENO NegativeTime performed: 1111UA PH DIPSTIC [id number] 11:36:00* Test Item Value Reference Range Comments UA PH DIPSTIC POC (test code=PHUP) 5 5-8 UA GLU: NEGATIVEKET UA NEGATIVEPH UA 5.0UA NIT NegativePROT UA NEGATIVEBL UA NEG ATIVEUA NENO NegativeTime performed: 1111UA PROTEIN DIPSTICK [id number] 11:36:00* Test Item Value Reference Range Comments UA PROTEIN DIPSTICK POC (test code=DPROUP) Negative Neg -15 UA GLU: NEGATIVEKET UA NEGATIVEPH UA 5.0UA NIT NegativePROT UA NEGATIVEBL UA NEG ATIVEUA NENO NegativeTime performed: 1110UA NITRITE DIPSTICK [id number] 11:36:00* Test Item Value Reference Range Comments UA NITRITE DIPSTICK POC (test code=NITUP) Negative UA GLU: NEGATIVEKET UA NEGATIVEPH UA 5.0UA NIT NegativePROT UA NEGATIVEBL UA NEG ATIVEUA NENO NegativeTime performed: 1111UA LEUKOCYTE ESTERASE [id number] 11:36:00* Test Item Value Reference Range Comments UA LEUKOCYTE ESTERASE POC (test code=LEUUPOC) NEGATIVE UA GLU: NEGATIVEKET UA NEGATIVEPH UA 5.0UA NIT NegativePROT UA NEGATIVEBL UA NEG ATIVEUA NENO NegativeTime performed: 1111UA GLUCOSE DIPSTIC [id number] 11:36:00* Test Item Value Reference Range Comments UA GLUCOSE DIPSTIC POC (test code=GLUUP) Negative Negative UA GLU: NEGATIVEKET UA NEGATIVEPH UA 5.0UA NIT NegativePROT UA NEGATIVEBL UA NEG ATIVEUA NENO NegativeTime performed: 1111UA KETONE DIPSTICK [id number] 11:36:00* Test Item Value Reference Range Comments UA KETONE DIPSTICK POC (test code=KETUP) Negative Negative UA GLU: NEGATIVEKET UA NEGATIVEPH UA 5.0UA NIT NegativePROT UA NEGATIVEBL UA NEG ATIVEUA NENO NegativeTime performed: 1111UA BLOOD DIPSTIC [id number] 11:36:00 * Test Item Value Reference Range Comments UA BLOOD DIPSTIC POC (test code=BLUP) Negative NEGATIVE UA GLU: NEGATIVEKET UA NEGATIVEPH UA 5.0UA NIT NegativePROT UA NEGATIVEBL UA NEG ATIVEUA NENO NegativeTime performed: 1111UA PH DIPSTIC [id number] 11:36:00* Test Item Value Reference Range Comments UA PH DIPSTIC POC (test code=PHUP) 5 5-8 UA GLU: NEGATIVEKET UA NEGATIVEPH UA 5.0UA NIT NegativePROT UA NEGATIVEBL UA NEG ATIVEUA NENO NegativeTime performed: 1111UA PROTEIN DIPSTICK [id number] 11:36:00* Test Item Value Reference Range Comments UA PROTEIN DIPSTICK POC (test code=DPROUP) Negative Neg -15 UA GLU: NEGATIVEKET UA NEGATIVEPH UA 5.0UA NIT NegativePROT UA NEGATIVEBL UA NEG ATIVEUA NENO NegativeTime performed: 1111UA NITRITE DIPSTICK [id number] 11:36:00* Test Item Value Reference Range Comments UA NITRITE DIPSTICK POC (test code=NITUP) Negative Negative UA GLU: NEGATIVEKET UA NEGATIVEPH UA 5.0UA NIT NegativePROT UA NEGATIVEBL UA NEG ATIVEUA NENO NegativeTime performed: 1111UA LEUKOCYTE ESTERASE [id number] 11:36:00* Test Item Value Reference Range Comments UA LEUKOCYTE ESTERASE POC (test code=LEUUPOC) NEGATIVE UA GLU: NEGATIVEKET UA NEGATIVEPH UA 5.0UA NIT NegativePROT UA NEGATIVEBL UA NEG ATIVEUA NENO NegativeTime performed: 1111UA GLUCOSE DIPSTIC [id number] 11:36:00* Test Item Value Reference Range Comments UA GLUCOSE DIPSTIC POC (test code=GLUUP) Negative Negative UA GLU: NEGATIVEKET UA NEGATIVEPH UA 5.0UA NIT NegativePROT UA NEGATIVEBL UA NEG ATIVEUA NENO NegativeTime performed: 1111UA KETONE DIPSTICK [id number] 11:36:00* Test Item Value Reference Range Comments UA KETONE DIPSTICK POC (test code=KETUP) Negative Negative UA GLU: NEGATIVEKET UA NEGATIVEPH UA 5.0UA NIT NegativePROT UA NEGATIVEBL UA NEG ATIVEUA NENO NegativeTime performed: 1111UA BLOOD DIPSTIC [id number] 11:36:00 * Test Item Value Reference Range Comments UA BLOOD DIPSTIC POC (test code=BLUP) Negative NEGATIVE UA GLU: NEGATIVEKET UA NEGATIVEPH UA 5.0UA NIT NegativePROT UA NEGATIVEBL UA NEG ATIVEUA NENO NegativeTime performed: 1111UA PH DIPSTIC [id number] 11:36:00* Test Item Value Reference Range Comments UA PH DIPSTIC POC (test code=PHUP) 5 5-8 UA GLU: NEGATIVEKET UA NEGATIVEPH UA 5.0UA NIT NegativePROT UA NEGATIVEBL UA NEG ATIVEUA NENO NegativeTime performed: 1111UA PROTEIN DIPSTICK [id number] 11:36:00* Test Item Value Reference Range Comments UA PROTEIN DIPSTICK POC (test code=DPROUP) Negative Neg -15 UA GLU: NEGATIVEKET UA NEGATIVEPH UA 5.0UA NIT NegativePROT UA NEGATIVEBL UA NEG ATIVEUA NENO NegativeTime performed: 1111UA NITRITE DIPSTICK [id number] 11:36:00* Test Item Value Reference Range Comments UA NITRITE DIPSTICK POC (test code=NITUP) Negative Negative UA GLU: NEGATIVEKET UA NEGATIVEPH UA 5.0UA NIT NegativePROT UA NEGATIVEBL UA NEG ATIVEUA NENO NegativeTime performed: 1111UA LEUKOCYTE ESTERASE [id number] 11:36:00* Test Item Value Reference Range Comments UA LEUKOCYTE ESTERASE POC (test code=LEUUPOC) NEGATIVE NEGATIVE UA GLU: NEGATIVEKET UA NEGATIVEPH UA 5.0UA NIT NegativePROT UA NEGATIVEBL UA NEG ATIVEUA NENO NegativeTime performed: 1111TRIPLE [id number] 01:08:00* Test Item Value Reference Range Comments AFP GESTATIONAL AGE (test code=AFPAGE) 17.9 weeks () AFP MULTIPLE OF MEDIAN (test code=AFPMOM) 0.96 () AFP PATIENT WEIGHT (test code=AFPWT) 153 lbs () AFP PATIENT RACE (test code=AFPRACE) Other () AFP DIABETES (test code=AFPDIAB) No () MSAFP RISK OPEN NTD (test code=MSAFPNTD) 75219 () AFP MATERNAL INTERPRETATION (test code=AFPMINT) () Interpretation: Screen NegativeThis result is screen negative for OSB. The AFP MoMcalculated is based on the gestational age provided. MS-AFPcan identify up to 80% of open neural tube defects.Closed neural tube defects and some open defects may not bedetected by this test. This test does not screen for fetalDown Syndrome or Trisomy 18. If screening for Down Syndromeor Trisomy 18 is desired, contact [facility] to discuss available options. The AmericanCollege of Obstetricians and Gynecologists recommendsamniocentesis be offered to women age 35 and older. GESTATIONAL CALC METHOD (test code=AFPGCM) LMP () 03/12/2018Recalculations are not recommended when gestational datingby LMP and ultrasound are within 10 days. MATERNAL AGE AT MEHDI (test code=AFP[age]EDC) 21[age]1 yr () AFP COMMENT (test code=AFPCMT) () Eliz Carpio, Ph.D., [facility] Genetics Technical DirectorReferences: Available Upon Request.Multiples Of Median Cutoffs For AFP ElevationsSingleton 2.5 Black 2.8I DD 2.0 Twins 4.5 Abbreviation DefinitionsIDD - Insulin Dep DiabetesOSBR - Open Spina Bifida RiskFor further inquiries contact [facility] at [phone].Performed At: [facility] [id number] [place], [place] [id number] Benítez MD Ph:[phone] SPECIMEN COMMENTS: 17 WEEKS AND 6 DAYSGestational age? (weeks) 17PATIENT'S WEIGH T (LBS) 153.8History of multiple births? NOHistory of vaginal bleeding? NOHist n eural tube defect? NOHistory of diabetes? NOMultiple ? # of fetuses? 1L ast menst.period: 03/12/18irst or repeat specimen? FIRSTAny family history? NON EUA GLUCOSE DIPSTIC [id number] 15:28:00* Test Item Value Reference Range Comments UA GLUCOSE DIPSTIC POC (test code=GLUUP) Negative Negative UA GLU: NEGATIVEKET UA NEGATIVEPH UA 7.0UA NIT NegativePROT UA NEGATIVEBL UA NEG ATIVEUA NENO NegativeTime performed: 0200UA KETONE DIPSTICK [id number] 15:28:00* Test Item Value Reference Range Comments UA KETONE DIPSTICK POC (test code=KETUP) Negative UA GLU: NEGATIVEKET UA NEGATIVEPH UA 7.0UA NIT NegativePROT UA NEGATIVEBL UA NEG ATIVEUA NENO NegativeTime performed: 0200UA BLOOD DIPSTIC [id number] 15:28:00 * Test Item Value Reference Range Comments UA BLOOD DIPSTIC POC (test code=BLUP) NEGATIVE UA GLU: NEGATIVEKET UA NEGATIVEPH UA 7.0UA NIT NegativePROT UA NEGATIVEBL UA NEG ATIVEUA NENO NegativeTime performed: 0200UA PH DIPSTIC [id number] 15:28:00* Test Item Value Reference Range Comments UA PH DIPSTIC POC (test code=PHUP) 5-8 UA GLU: NEGATIVEKET UA NEGATIVEPH UA 7.0UA NIT NegativePROT UA NEGATIVEBL UA NEG ATIVEUA NENO NegativeTime performed: 0200UA PROTEIN DIPSTICK [id number] 15:28:00* Test Item Value Reference Range Comments UA PROTEIN DIPSTICK POC (test code=DPROUP) Neg -15 UA GLU: NEGATIVEKET UA NEGATIVEPH UA 7.0UA NIT NegativePROT UA NEGATIVEBL UA NEG ATIVEUA NENO NegativeTime performed: 0200UA NITRITE DIPSTICK [id number] 15:28:00* Test Item Value Reference Range Comments UA NITRITE DIPSTICK POC (test code=NITUP) Negative UA GLU: NEGATIVEKET UA NEGATIVEPH UA 7.0UA NIT NegativePROT UA NEGATIVEBL UA NEG ATIVEUA NENO NegativeTime performed: 0200UA LEUKOCYTE ESTERASE [id number] 15:28:00* Test Item Value Reference Range Comments UA LEUKOCYTE ESTERASE POC (test code=LEUUPOC) NEGATIVE UA GLU: NEGATIVEKET UA NEGATIVEPH UA 7.0UA NIT NegativePROT UA NEGATIVEBL UA NEG ATIVEUA NENO NegativeTime performed: 0200UA GLUCOSE DIPSTIC [id number] 15:28:00* Test Item Value Reference Range Comments UA GLUCOSE DIPSTIC POC (test code=GLUUP) Negative Negative UA GLU: NEGATIVEKET UA NEGATIVEPH UA 7.0UA NIT NegativePROT UA NEGATIVEBL UA NEG ATIVEUA NENO NegativeTime performed: 0200UA KETONE DIPSTICK [id number] 15:28:00* Test Item Value Reference Range Comments UA KETONE DIPSTICK POC (test code=KETUP) Negative Negative UA GLU: NEGATIVEKET UA NEGATIVEPH UA 7.0UA NIT NegativePROT UA NEGATIVEBL UA NEG ATIVEUA NENO NegativeTime performed: 0200UA BLOOD DIPSTIC [id number] 15:28:00 * Test Item Value Reference Range Comments UA BLOOD DIPSTIC POC (test code=BLUP) NEGATIVE UA GLU: NEGATIVEKET UA NEGATIVEPH UA 7.0UA NIT NegativePROT UA NEGATIVEBL UA NEG ATIVEUA NENO NegativeTime performed: 0UA PH DIPSTIC [id number] 15:28:00* Test Item Value Reference Range Comments UA PH DIPSTIC POC (test code=PHUP) 5-8 UA GLU: NEGATIVEKET UA NEGATIVEPH UA 7.0UA NIT NegativePROT UA NEGATIVEBL UA NEG ATIVEUA NENO NegativeTime performed: 0200UA PROTEIN DIPSTICK [id number] 15:28:00* Test Item Value Reference Range Comments UA PROTEIN DIPSTICK POC (test code=DPROUP) Neg -15 UA GLU: NEGATIVEKET UA NEGATIVEPH UA 7.0UA NIT NegativePROT UA NEGATIVEBL UA NEG ATIVEUA NENO NegativeTime performed: 0UA NITRITE DIPSTICK [id number] 15:28:00* Test Item Value Reference Range Comments UA NITRITE DIPSTICK POC (test code=NITUP) Negative UA GLU: NEGATIVEKET UA NEGATIVEPH UA 7.0UA NIT NegativePROT UA NEGATIVEBL UA NEG ATIVEUA NENO NegativeTime performed: 0200UA LEUKOCYTE ESTERASE [id number] 15:28:00* Test Item Value Reference Range Comments UA LEUKOCYTE ESTERASE POC (test code=LEUUPOC) NEGATIVE UA GLU: NEGATIVEKET UA NEGATIVEPH UA 7.0UA NIT NegativePROT UA NEGATIVEBL UA NEG ATIVEUA NENO NegativeTime performed: 0200UA GLUCOSE DIPSTIC [id number] 15:28:00* Test Item Value Reference Range Comments UA GLUCOSE DIPSTIC POC (test code=GLUUP) Negative Negative UA GLU: NEGATIVEKET UA NEGATIVEPH UA 7.0UA NIT NegativePROT UA NEGATIVEBL UA NEG ATIVEUA NENO NegativeTime performed: 0200UA KETONE DIPSTICK [id number] 15:28:00* Test Item Value Reference Range Comments UA KETONE DIPSTICK POC (test code=KETUP) Negative Negative UA GLU: NEGATIVEKET UA NEGATIVEPH UA 7.0UA NIT NegativePROT UA NEGATIVEBL UA NEG ATIVEUA NENO NegativeTime performed: 0200UA BLOOD DIPSTIC [id number] 15:28:00 * Test Item Value Reference Range Comments UA BLOOD DIPSTIC POC (test code=BLUP) Negative NEGATIVE UA GLU: NEGATIVEKET UA NEGATIVEPH UA 7.0UA NIT NegativePROT UA NEGATIVEBL UA NEG ATIVEUA NENO NegativeTime performed: 0200UA PH DIPSTIC [id number] 15:28:00* Test Item Value Reference Range Comments UA PH DIPSTIC POC (test code=PHUP) 5-8 UA GLU: NEGATIVEKET UA NEGATIVEPH UA 7.0UA NIT NegativePROT UA NEGATIVEBL UA NEG ATIVEUA NENO NegativeTime performed: 0200UA PROTEIN DIPSTICK [id number] 15:28:00* Test Item Value Reference Range Comments UA PROTEIN DIPSTICK POC (test code=DPROUP) Neg -15 UA GLU: NEGATIVEKET UA NEGATIVEPH UA 7.0UA NIT NegativePROT UA NEGATIVEBL UA NEG ATIVEUA NENO NegativeTime performed: 0200UA NITRITE DIPSTICK [id number] 15:28:00* Test Item Value Reference Range Comments UA NITRITE DIPSTICK POC (test code=NITUP) Negative UA GLU: NEGATIVEKET UA NEGATIVEPH UA 7.0UA NIT NegativePROT UA NEGATIVEBL UA NEG ATIVEUA NENO NegativeTime performed: 0200UA LEUKOCYTE ESTERASE [id number] 15:28:00* Test Item Value Reference Range Comments UA LEUKOCYTE ESTERASE POC (test code=LEUUPOC) NEGATIVE UA GLU: NEGATIVEKET UA NEGATIVEPH UA 7.0UA NIT NegativePROT UA NEGATIVEBL UA NEG ATIVEUA NENO NegativeTime performed: 0200UA GLUCOSE DIPSTIC [id number] 15:28:00* Test Item Value Reference Range Comments UA GLUCOSE DIPSTIC POC (test code=GLUUP) Negative Negative UA GLU: NEGATIVEKET UA NEGATIVEPH UA 7.0UA NIT NegativePROT UA NEGATIVEBL UA NEG ATIVEUA NENO NegativeTime performed: 0200UA KETONE DIPSTICK [id number] 15:28:00* Test Item Value Reference Range Comments UA KETONE DIPSTICK POC (test code=KETUP) Negative Negative UA GLU: NEGATIVEKET UA NEGATIVEPH UA 7.0UA NIT NegativePROT UA NEGATIVEBL UA NEG ATIVEUA NENO NegativeTime performed: 0200UA BLOOD DIPSTIC [id number] 15:28:00 * Test Item Value Reference Range Comments UA BLOOD DIPSTIC POC (test code=BLUP) Negative NEGATIVE UA GLU: NEGATIVEKET UA NEGATIVEPH UA 7.0UA NIT NegativePROT UA NEGATIVEBL UA NEG ATIVEUA NENO NegativeTime performed: 0200UA PH DIPSTIC [id number] 15:28:00* Test Item Value Reference Range Comments UA PH DIPSTIC POC (test code=PHUP) 7 5-8 UA GLU: NEGATIVEKET UA NEGATIVEPH UA 7.0UA NIT NegativePROT UA NEGATIVEBL UA NEG ATIVEUA NENO NegativeTime performed: 0200UA PROTEIN DIPSTICK [id number] 15:28:00* Test Item Value Reference Range Comments UA PROTEIN DIPSTICK POC (test code=DPROUP) Neg -15 UA GLU: NEGATIVEKET UA NEGATIVEPH UA 7.0UA NIT NegativePROT UA NEGATIVEBL UA NEG ATIVEUA NENO NegativeTime performed: 0200UA NITRITE DIPSTICK [id number] 15:28:00* Test Item Value Reference Range Comments UA NITRITE DIPSTICK POC (test code=NITUP) Negative UA GLU: NEGATIVEKET UA NEGATIVEPH UA 7.0UA NIT NegativePROT UA NEGATIVEBL UA NEG ATIVEUA NENO NegativeTime performed: 0200UA LEUKOCYTE ESTERASE [id number] 15:28:00* Test Item Value Reference Range Comments UA LEUKOCYTE ESTERASE POC (test code=LEUUPOC) NEGATIVE UA GLU: NEGATIVEKET UA NEGATIVEPH UA 7.0UA NIT NegativePROT UA NEGATIVEBL UA NEG ATIVEUA NENO NegativeTime performed: 0200UA GLUCOSE DIPSTIC [id number] 15:28:00* Test Item Value Reference Range Comments UA GLUCOSE DIPSTIC POC (test code=GLUUP) Negative Negative UA GLU: NEGATIVEKET UA NEGATIVEPH UA 7.0UA NIT NegativePROT UA NEGATIVEBL UA NEG ATIVEUA NENO NegativeTime performed: 0200UA KETONE DIPSTICK [id number] 15:28:00* Test Item Value Reference Range Comments UA KETONE DIPSTICK POC (test code=KETUP) Negative Negative UA GLU: NEGATIVEKET UA NEGATIVEPH UA 7.0UA NIT NegativePROT UA NEGATIVEBL UA NEG ATIVEUA NENO NegativeTime performed: 0200UA BLOOD DIPSTIC [id number] 15:28:00 * Test Item Value Reference Range Comments UA BLOOD DIPSTIC POC (test code=BLUP) Negative NEGATIVE UA GLU: NEGATIVEKET UA NEGATIVEPH UA 7.0UA NIT NegativePROT UA NEGATIVEBL UA NEG ATIVEUA NENO NegativeTime performed: 0200UA PH DIPSTIC [id number] 15:28:00* Test Item Value Reference Range Comments UA PH DIPSTIC POC (test code=PHUP) 7 5-8 UA GLU: NEGATIVEKET UA NEGATIVEPH UA 7.0UA NIT NegativePROT UA NEGATIVEBL UA NEG ATIVEUA NENO NegativeTime performed: 0200UA PROTEIN DIPSTICK [id number] 15:28:00* Test Item Value Reference Range Comments UA PROTEIN DIPSTICK POC (test code=DPROUP) Negative Neg -15 UA GLU: NEGATIVEKET UA NEGATIVEPH UA 7.0UA NIT NegativePROT UA NEGATIVEBL UA NEG ATIVEUA NENO NegativeTime performed: 0200UA NITRITE DIPSTICK [id number] 15:28:00* Test Item Value Reference Range Comments UA NITRITE DIPSTICK POC (test code=NITUP) Negative UA GLU: NEGATIVEKET UA NEGATIVEPH UA 7.0UA NIT NegativePROT UA NEGATIVEBL UA NEG ATIVEUA NENO NegativeTime performed: 0200UA LEUKOCYTE ESTERASE [id number] 15:28:00* Test Item Value Reference Range Comments UA LEUKOCYTE ESTERASE POC (test code=LEUUPOC) NEGATIVE UA GLU: NEGATIVEKET UA NEGATIVEPH UA 7.0UA NIT NegativePROT UA NEGATIVEBL UA NEG ATIVEUA NENO NegativeTime performed: 0200UA GLUCOSE DIPSTIC [id number] 15:28:00* Test Item Value Reference Range Comments UA GLUCOSE DIPSTIC POC (test code=GLUUP) Negative Negative UA GLU: NEGATIVEKET UA NEGATIVEPH UA 7.0UA NIT NegativePROT UA NEGATIVEBL UA NEG ATIVEUA NENO NegativeTime performed: 0200UA KETONE DIPSTICK [id number] 15:28:00* Test Item Value Reference Range Comments UA KETONE DIPSTICK POC (test code=KETUP) Negative Negative UA GLU: NEGATIVEKET UA NEGATIVEPH UA 7.0UA NIT NegativePROT UA NEGATIVEBL UA NEG ATIVEUA NENO NegativeTime performed: 0200UA BLOOD DIPSTIC [id number] 15:28:00 * Test Item Value Reference Range Comments UA BLOOD DIPSTIC POC (test code=BLUP) Negative NEGATIVE UA GLU: NEGATIVEKET UA NEGATIVEPH UA 7.0UA NIT NegativePROT UA NEGATIVEBL UA NEG ATIVEUA NENO NegativeTime performed: 0200UA PH DIPSTIC [id number] 15:28:00* Test Item Value Reference Range Comments UA PH DIPSTIC POC (test code=PHUP) 7 5-8 UA GLU: NEGATIVEKET UA NEGATIVEPH UA 7.0UA NIT NegativePROT UA NEGATIVEBL UA NEG ATIVEUA NENO NegativeTime performed: 0200UA PROTEIN DIPSTICK [id number] 15:28:00* Test Item Value Reference Range Comments UA PROTEIN DIPSTICK POC (test code=DPROUP) Negative Neg -15 UA GLU: NEGATIVEKET UA NEGATIVEPH UA 7.0UA NIT NegativePROT UA NEGATIVEBL UA NEG ATIVEUA NENO NegativeTime performed: 0200UA NITRITE DIPSTICK [id number] 15:28:00* Test Item Value Reference Range Comments UA NITRITE DIPSTICK POC (test code=NITUP) Negative Negative UA GLU: NEGATIVEKET UA NEGATIVEPH UA 7.0UA NIT NegativePROT UA NEGATIVEBL UA NEG ATIVEUA NENO NegativeTime performed: 0200UA LEUKOCYTE ESTERASE [id number] 15:28:00* Test Item Value Reference Range Comments UA LEUKOCYTE ESTERASE POC (test code=LEUUPOC) NEGATIVE UA GLU: NEGATIVEKET UA NEGATIVEPH UA 7.0UA NIT NegativePROT UA NEGATIVEBL UA NEG ATIVEUA NENO NegativeTime performed: 0200UA GLUCOSE DIPSTIC [id number] 15:28:00* Test Item Value Reference Range Comments UA GLUCOSE DIPSTIC POC (test code=GLUUP) Negative Negative UA GLU: NEGATIVEKET UA NEGATIVEPH UA 7.0UA NIT NegativePROT UA NEGATIVEBL UA NEG ATIVEUA NENO NegativeTime performed: 0200UA KETONE DIPSTICK [id number] 15:28:00* Test Item Value Reference Range Comments UA KETONE DIPSTICK POC (test code=KETUP) Negative Negative UA GLU: NEGATIVEKET UA NEGATIVEPH UA 7.0UA NIT NegativePROT UA NEGATIVEBL UA NEG ATIVEUA NENO NegativeTime performed: 0200UA BLOOD DIPSTIC [id number] 15:28:00 * Test Item Value Reference Range Comments UA BLOOD DIPSTIC POC (test code=BLUP) Negative NEGATIVE UA GLU: NEGATIVEKET UA NEGATIVEPH UA 7.0UA NIT NegativePROT UA NEGATIVEBL UA NEG ATIVEUA NENO NegativeTime performed: 0200UA PH DIPSTIC [id number] 15:28:00* Test Item Value Reference Range Comments UA PH DIPSTIC POC (test code=PHUP) 7 5-8 UA GLU: NEGATIVEKET UA NEGATIVEPH UA 7.0UA NIT NegativePROT UA NEGATIVEBL UA NEG ATIVEUA NENO NegativeTime performed: 0200UA PROTEIN DIPSTICK [id number] 15:28:00* Test Item Value Reference Range Comments UA PROTEIN DIPSTICK POC (test code=DPROUP) Negative Neg -15 UA GLU: NEGATIVEKET UA NEGATIVEPH UA 7.0UA NIT NegativePROT UA NEGATIVEBL UA NEG ATIVEUA NENO NegativeTime performed: 0200UA NITRITE DIPSTICK [id number] 15:28:00* Test Item Value Reference Range Comments UA NITRITE DIPSTICK POC (test code=NITUP) Negative Negative UA GLU: NEGATIVEKET UA NEGATIVEPH UA 7.0UA NIT NegativePROT UA NEGATIVEBL UA NEG ATIVEUA NENO NegativeTime performed: 0200UA LEUKOCYTE ESTERASE [id number] 15:28:00* Test Item Value Reference Range Comments UA LEUKOCYTE ESTERASE POC (test code=LEUUPOC) NEGATIVE NEGATIVE UA GLU: NEGATIVEKET UA NEGATIVEPH UA 7.0UA NIT NegativePROT UA NEGATIVEBL UA NEG ATIVEUA NENO NegativeTime performed: 0200UA GLUCOSE DIPSTIC [id number] 12:39:00* Test Item Value Reference Range Comments UA GLUCOSE DIPSTIC POC (test code=GLUUP) Negative Negative UA GLU: NEGATIVEKET UA NEGATIVEPH UA 5.0UA NIT NegativePROT UA 30 (1+)BL UA NEGA TIVEUA NENO TraceTime performed: 1120UA KETONE DIPSTICK [id number] 12:39:00* Test Item Value Reference Range Comments UA KETONE DIPSTICK POC (test code=KETUP) Negative UA GLU: NEGATIVEKET UA NEGATIVEPH UA 5.0UA NIT NegativePROT UA 30 (1+)BL UA NEGA TIVEUA NENO TraceTime performed: 1120UA BLOOD DIPSTIC [id number] 12:39:00* Test Item Value Reference Range Comments UA BLOOD DIPSTIC POC (test code=BLUP) NEGATIVE UA GLU: NEGATIVEKET UA NEGATIVEPH UA 5.0UA NIT NegativePROT UA 30 (1+)BL UA NEGA TIVEUA NENO TraceTime performed: 1120UA PH DIPSTIC [id number] 12:39:00* Test Item Value Reference Range Comments UA PH DIPSTIC POC (test code=PHUP) 5-8 UA GLU: NEGATIVEKET UA NEGATIVEPH UA 5.0UA NIT NegativePROT UA 30 (1+)BL UA NEGA TIVEUA NENO TraceTime performed: 1120UA PROTEIN DIPSTICK [id number] 12:39:00* Test Item Value Reference Range Comments UA PROTEIN DIPSTICK POC (test code=DPROUP) Neg -15 UA GLU: NEGATIVEKET UA NEGATIVEPH UA 5.0UA NIT NegativePROT UA 30 (1+)BL UA NEGA TIVEUA NENO TraceTime performed: 1120UA NITRITE DIPSTICK [id number] 12:39:00* Test Item Value Reference Range Comments UA NITRITE DIPSTICK POC (test code=NITUP) Negative UA GLU: NEGATIVEKET UA NEGATIVEPH UA 5.0UA NIT NegativePROT UA 30 (1+)BL UA NEGA TIVEUA NENO TraceTime performed: 1120UA LEUKOCYTE ESTERASE [id number] 12:39:00 * Test Item Value Reference Range Comments UA LEUKOCYTE ESTERASE POC (test code=LEUUPOC) NEGATIVE UA GLU: NEGATIVEKET UA NEGATIVEPH UA 5.0UA NIT NegativePROT UA 30 (1+)BL UA NEGA TIVEUA NENO TraceTime performed: 1120UA GLUCOSE DIPSTIC [id number] 12:39:00* Test Item Value Reference Range Comments UA GLUCOSE DIPSTIC POC (test code=GLUUP) Negative Negative UA GLU: NEGATIVEKET UA NEGATIVEPH UA 5.0UA NIT NegativePROT UA 30 (1+)BL UA NEGA TIVEUA NENO TraceTime performed: 1120UA KETONE DIPSTICK [id number] 12:39:00* Test Item Value Reference Range Comments UA KETONE DIPSTICK POC (test code=KETUP) Negative Negative UA GLU: NEGATIVEKET UA NEGATIVEPH UA 5.0UA NIT NegativePROT UA 30 (1+)BL UA NEGA TIVEUA NENO TraceTime performed: 1120UA BLOOD DIPSTIC [id number] 12:39:00* Test Item Value Reference Range Comments UA BLOOD DIPSTIC POC (test code=BLUP) NEGATIVE UA GLU: NEGATIVEKET UA NEGATIVEPH UA 5.0UA NIT NegativePROT UA 30 (1+)BL UA NEGA TIVEUA NENO TraceTime performed: 1120UA PH DIPSTIC [id number] 12:39:00* Test Item Value Reference Range Comments UA PH DIPSTIC POC (test code=PHUP) 5-8 UA GLU: NEGATIVEKET UA NEGATIVEPH UA 5.0UA NIT NegativePROT UA 30 (1+)BL UA NEGA TIVEUA NENO TraceTime performed: 1120UA PROTEIN DIPSTICK [id number] 12:39:00* Test Item Value Reference Range Comments UA PROTEIN DIPSTICK POC (test code=DPROUP) Neg -15 UA GLU: NEGATIVEKET UA NEGATIVEPH UA 5.0UA NIT NegativePROT UA 30 (1+)BL UA NEGA TIVEUA NENO TraceTime performed: 1120UA NITRITE DIPSTICK [id number] 12:39:00* Test Item Value Reference Range Comments UA NITRITE DIPSTICK POC (test code=NITUP) Negative UA GLU: NEGATIVEKET UA NEGATIVEPH UA 5.0UA NIT NegativePROT UA 30 (1+)BL UA NEGA TIVEUA NENO TraceTime performed: 1120UA LEUKOCYTE ESTERASE [id number] 12:39:00 * Test Item Value Reference Range Comments UA LEUKOCYTE ESTERASE POC (test code=LEUUPOC) NEGATIVE UA GLU: NEGATIVEKET UA NEGATIVEPH UA 5.0UA NIT NegativePROT UA 30 (1+)BL UA NEGA TIVEUA NENO TraceTime performed: 1120UA GLUCOSE DIPSTIC [id number] 12:39:00* Test Item Value Reference Range Comments UA GLUCOSE DIPSTIC POC (test code=GLUUP) Negative Negative UA GLU: NEGATIVEKET UA NEGATIVEPH UA 5.0UA NIT NegativePROT UA 30 (1+)BL UA NEGA TIVEUA NENO TraceTime performed: 1120UA KETONE DIPSTICK [id number] 12:39:00* Test Item Value Reference Range Comments UA KETONE DIPSTICK POC (test code=KETUP) Negative Negative UA GLU: NEGATIVEKET UA NEGATIVEPH UA 5.0UA NIT NegativePROT UA 30 (1+)BL UA NEGA TIVEUA NENO TraceTime performed: 1120UA BLOOD DIPSTIC [id number] 12:39:00* Test Item Value Reference Range Comments UA BLOOD DIPSTIC POC (test code=BLUP) Negative NEGATIVE UA GLU: NEGATIVEKET UA NEGATIVEPH UA 5.0UA NIT NegativePROT UA 30 (1+)BL UA NEGA TIVEUA NENO TraceTime performed: 1120UA PH DIPSTIC [id number] 12:39:00* Test Item Value Reference Range Comments UA PH DIPSTIC POC (test code=PHUP) 5-8 UA GLU: NEGATIVEKET UA NEGATIVEPH UA 5.0UA NIT NegativePROT UA 30 (1+)BL UA NEGA TIVEUA NENO TraceTime performed: 1120UA PROTEIN DIPSTICK [id number] 12:39:00* Test Item Value Reference Range Comments UA PROTEIN DIPSTICK POC (test code=DPROUP) Neg -15 UA GLU: NEGATIVEKET UA NEGATIVEPH UA 5.0UA NIT NegativePROT UA 30 (1+)BL UA NEGA TIVEUA NENO TraceTime performed: 1120UA NITRITE DIPSTICK [id number] 12:39:00* Test Item Value Reference Range Comments UA NITRITE DIPSTICK POC (test code=NITUP) Negative UA GLU: NEGATIVEKET UA NEGATIVEPH UA 5.0UA NIT NegativePROT UA 30 (1+)BL UA NEGA TIVEUA NENO TraceTime performed: 1120UA LEUKOCYTE ESTERASE [id number] 12:39:00 * Test Item Value Reference Range Comments UA LEUKOCYTE ESTERASE POC (test code=LEUUPOC) NEGATIVE UA GLU: NEGATIVEKET UA NEGATIVEPH UA 5.0UA NIT NegativePROT UA 30 (1+)BL UA NEGA TIVEUA NENO TraceTime performed: 1120UA GLUCOSE DIPSTIC [id number] 12:39:00* Test Item Value Reference Range Comments UA GLUCOSE DIPSTIC POC (test code=GLUUP) Negative Negative UA GLU: NEGATIVEKET UA NEGATIVEPH UA 5.0UA NIT NegativePROT UA 30 (1+)BL UA NEGA TIVEUA NENO TraceTime performed: 1120UA KETONE DIPSTICK [id number] 12:39:00* Test Item Value Reference Range Comments UA KETONE DIPSTICK POC (test code=KETUP) Negative Negative UA GLU: NEGATIVEKET UA NEGATIVEPH UA 5.0UA NIT NegativePROT UA 30 (1+)BL UA NEGA TIVEUA NENO TraceTime performed: 1120UA BLOOD DIPSTIC [id number] 12:39:00* Test Item Value Reference Range Comments UA BLOOD DIPSTIC POC (test code=BLUP) Negative NEGATIVE UA GLU: NEGATIVEKET UA NEGATIVEPH UA 5.0UA NIT NegativePROT UA 30 (1+)BL UA NEGA TIVEUA NENO TraceTime performed: 1120UA PH DIPSTIC [id number] 12:39:00* Test Item Value Reference Range Comments UA PH DIPSTIC POC (test code=PHUP) 5 5-8 UA GLU: NEGATIVEKET UA NEGATIVEPH UA 5.0UA NIT NegativePROT UA 30 (1+)BL UA NEGA TIVEUA NENO TraceTime performed: 1120UA PROTEIN DIPSTICK [id number] 12:39:00* Test Item Value Reference Range Comments UA PROTEIN DIPSTICK POC (test code=DPROUP) Neg -15 UA GLU: NEGATIVEKET UA NEGATIVEPH UA 5.0UA NIT NegativePROT UA 30 (1+)BL UA NEGA TIVEUA NENO TraceTime performed: 1120UA NITRITE DIPSTICK [id number] 12:39:00* Test Item Value Reference Range Comments UA NITRITE DIPSTICK POC (test code=NITUP) Negative UA GLU: NEGATIVEKET UA NEGATIVEPH UA 5.0UA NIT NegativePROT UA 30 (1+)BL UA NEGA TIVEUA NENO TraceTime performed: 1120UA LEUKOCYTE ESTERASE [id number] 12:39:00 * Test Item Value Reference Range Comments UA LEUKOCYTE ESTERASE POC (test code=LEUUPOC) NEGATIVE UA GLU: NEGATIVEKET UA NEGATIVEPH UA 5.0UA NIT NegativePROT UA 30 (1+)BL UA NEGA TIVEUA NENO TraceTime performed: 1120UA GLUCOSE DIPSTIC [id number] 12:39:00* Test Item Value Reference Range Comments UA GLUCOSE DIPSTIC POC (test code=GLUUP) Negative Negative UA GLU: NEGATIVEKET UA NEGATIVEPH UA 5.0UA NIT NegativePROT UA 30 (1+)BL UA NEGA TIVEUA NENO TraceTime performed: 1120UA KETONE DIPSTICK [id number] 12:39:00* Test Item Value Reference Range Comments UA KETONE DIPSTICK POC (test code=KETUP) Negative Negative UA GLU: NEGATIVEKET UA NEGATIVEPH UA 5.0UA NIT NegativePROT UA 30 (1+)BL UA NEGA TIVEUA NENO TraceTime performed: 1120UA BLOOD DIPSTIC [id number] 12:39:00* Test Item Value Reference Range Comments UA BLOOD DIPSTIC POC (test code=BLUP) Negative NEGATIVE UA GLU: NEGATIVEKET UA NEGATIVEPH UA 5.0UA NIT NegativePROT UA 30 (1+)BL UA NEGA TIVEUA NENO TraceTime performed: 1120UA PH DIPSTIC [id number] 12:39:00* Test Item Value Reference Range Comments UA PH DIPSTIC POC (test code=PHUP) 5 5-8 UA GLU: NEGATIVEKET UA NEGATIVEPH UA 5.0UA NIT NegativePROT UA 30 (1+)BL UA NEGA TIVEUA NENO TraceTime performed: 1120UA PROTEIN DIPSTICK [id number] 12:39:00* Test Item Value Reference Range Comments UA PROTEIN DIPSTICK POC (test code=DPROUP) 30 (1+) Neg -15 UA GLU: NEGATIVEKET UA NEGATIVEPH UA 5.0UA NIT NegativePROT UA 30 (1+)BL UA NEGA TIVEUA NENO TraceTime performed: 1120UA NITRITE DIPSTICK [id number] 12:39:00* Test Item Value Reference Range Comments UA NITRITE DIPSTICK POC (test code=NITUP) Negative UA GLU: NEGATIVEKET UA NEGATIVEPH UA 5.0UA NIT NegativePROT UA 30 (1+)BL UA NEGA TIVEUA NENO TraceTime performed: 1120UA LEUKOCYTE ESTERASE [id number] 12:39:00 * Test Item Value Reference Range Comments UA LEUKOCYTE ESTERASE POC (test code=LEUUPOC) NEGATIVE UA GLU: NEGATIVEKET UA NEGATIVEPH UA 5.0UA NIT NegativePROT UA 30 (1+)BL UA NEGA TIVEUA NENO TraceTime performed: 1120UA GLUCOSE DIPSTIC [id number] 12:39:00* Test Item Value Reference Range Comments UA GLUCOSE DIPSTIC POC (test code=GLUUP) Negative Negative UA GLU: NEGATIVEKET UA NEGATIVEPH UA 5.0UA NIT NegativePROT UA 30 (1+)BL UA NEGA TIVEUA NENO TraceTime performed: 1120UA KETONE DIPSTICK [id number] 12:39:00* Test Item Value Reference Range Comments UA KETONE DIPSTICK POC (test code=KETUP) Negative Negative UA GLU: NEGATIVEKET UA NEGATIVEPH UA 5.0UA NIT NegativePROT UA 30 (1+)BL UA NEGA TIVEUA NENO TraceTime performed: 1120UA BLOOD DIPSTIC [id number] 12:39:00* Test Item Value Reference Range Comments UA BLOOD DIPSTIC POC (test code=BLUP) Negative NEGATIVE UA GLU: NEGATIVEKET UA NEGATIVEPH UA 5.0UA NIT NegativePROT UA 30 (1+)BL UA NEGA TIVEUA NENO TraceTime performed: 1120UA PH DIPSTIC [id number] 12:39:00* Test Item Value Reference Range Comments UA PH DIPSTIC POC (test code=PHUP) 5 5-8 UA GLU: NEGATIVEKET UA NEGATIVEPH UA 5.0UA NIT NegativePROT UA 30 (1+)BL UA NEGA TIVEUA NENO TraceTime performed: 1120UA PROTEIN DIPSTICK [id number] 12:39:00* Test Item Value Reference Range Comments UA PROTEIN DIPSTICK POC (test code=DPROUP) 30 (1+) Neg -15 UA GLU: NEGATIVEKET UA NEGATIVEPH UA 5.0UA NIT NegativePROT UA 30 (1+)BL UA NEGA TIVEUA NENO TraceTime performed: 1120UA NITRITE DIPSTICK [id number] 12:39:00* Test Item Value Reference Range Comments UA NITRITE DIPSTICK POC (test code=NITUP) Negative Negative UA GLU: NEGATIVEKET UA NEGATIVEPH UA 5.0UA NIT NegativePROT UA 30 (1+)BL UA NEGA TIVEUA NENO TraceTime performed: 1120UA LEUKOCYTE ESTERASE [id number] 12:39:00 * Test Item Value Reference Range Comments UA LEUKOCYTE ESTERASE POC (test code=LEUUPOC) NEGATIVE UA GLU: NEGATIVEKET UA NEGATIVEPH UA 5.0UA NIT NegativePROT UA 30 (1+)BL UA NEGA TIVEUA NENO TraceTime performed: 1120UA GLUCOSE DIPSTIC [id number] 12:39:00* Test Item Value Reference Range Comments UA GLUCOSE DIPSTIC POC (test code=GLUUP) Negative Negative UA GLU: NEGATIVEKET UA NEGATIVEPH UA 5.0UA NIT NegativePROT UA 30 (1+)BL UA NEGA TIVEUA NENO TraceTime performed: 1120UA KETONE DIPSTICK [id number] 12:39:00* Test Item Value Reference Range Comments UA KETONE DIPSTICK POC (test code=KETUP) Negative Negative UA GLU: NEGATIVEKET UA NEGATIVEPH UA 5.0UA NIT NegativePROT UA 30 (1+)BL UA NEGA TIVEUA NENO TraceTime performed: 1120UA BLOOD DIPSTIC [id number] 12:39:00* Test Item Value Reference Range Comments UA BLOOD DIPSTIC POC (test code=BLUP) Negative NEGATIVE UA GLU: NEGATIVEKET UA NEGATIVEPH UA 5.0UA NIT NegativePROT UA 30 (1+)BL UA NEGA TIVEUA NENO TraceTime performed: 1120UA PH DIPSTIC [id number] 12:39:00* Test Item Value Reference Range Comments UA PH DIPSTIC POC (test code=PHUP) 5 5-8 UA GLU: NEGATIVEKET UA NEGATIVEPH UA 5.0UA NIT NegativePROT UA 30 (1+)BL UA NEGA TIVEUA NENO TraceTime performed: 1120UA PROTEIN DIPSTICK [id number] 12:39:00* Test Item Value Reference Range Comments UA PROTEIN DIPSTICK POC (test code=DPROUP) 30 (1+) Neg -15 UA GLU: NEGATIVEKET UA NEGATIVEPH UA 5.0UA NIT NegativePROT UA 30 (1+)BL UA NEGA TIVEUA NENO TraceTime performed: 1120UA NITRITE DIPSTICK [id number] 12:39:00* Test Item Value Reference Range Comments UA NITRITE DIPSTICK POC (test code=NITUP) Negative Negative UA GLU: NEGATIVEKET UA NEGATIVEPH UA 5.0UA NIT NegativePROT UA 30 (1+)BL UA NEGA TIVEUA NENO TraceTime performed: 1120UA LEUKOCYTE ESTERASE [id number] 12:39:00 * Test Item Value Reference Range Comments UA LEUKOCYTE ESTERASE POC (test code=LEUUPOC) TRACE NEGATIVE UA GLU: NEGATIVEKET UA NEGATIVEPH UA 5.0UA NIT NegativePROT UA 30 (1+)BL UA NEGA TIVEUA NENO TraceTime performed: 1120
[2019-07-22] MEDS ORDERED: DEXAMETHASONE SOD PHOS 10 MG/1 ML VIAL IM NR (20:45)
[2019-07-22] MEDS ORDERED: KETOROLAC TROMETHAMINE 60 MG/2 ML VIAL IM ONE (20:45)
[2019-07-22] MEDS ORDERED: HYDROCODONE/APAP 7.5MG-325MG 1 EA TAB PO PRN (20:45)
== END 2019-07-22 21:33 | disposition home or self-care (01) ==
LOC: ER 19:56
DX: M54.42 Lumbago with sciatica, left side (principal)
CPT/HCPCS: 99283; J1100; J1885

== ENCOUNTER 2022-04-26 22:39 | Emergency (ER) | payer BC ==
[~2022-04-26] VITALS: Ht 160 cm; Wt 70.3 kg
[2022-04-26] MEDS ORDERED: ONDANSETRON HCL INJ 2MG/ML 2ML 2 MG/ML VIAL IV STA (23:44)
[2022-04-26] MEDS ORDERED: SODIUM CHLORIDE 0.9% 1000ML 1,000 ML IV ONE (23:45)
[2022-04-26] MEDS ORDERED: Morphine 4mg INJECTION 4 MG/ML INJ IV ONE (23:45)
[2022-04-27 00:11] LABS: BASOPHILS % 0.3 % (0.0-1.0); EOSINOPHILS # (AUTO) 0.2 (0.0-0.4); EOSINOPHILS % 1.6 % (0.0-6.0); HEMATOCRIT 33.3 % (34.2-44.1); HEMOGLOBIN 9.6 g/dL (12.0-16.0); LYMPHOCYTES # (AUTO) 2.9 (1.0-3.2); LYMPHOCYTES % 29.6 % (18.0-39.1); MEAN CORPUSCULAR HEMOGLOBIN 22.6 pg (28-32); MEAN CORPUSCULAR HGB CONC 28.8 g/dL (31-35); MEAN CORPUSCULAR VOLUME 78.5 fL (81-99); MONOCYTES # (AUTO) 0.6 (0.2-0.8); MONOCYTES % 5.8 % (4.4-11.3); NEUTROPHILS # (AUTO) 6.2 (2.1-6.9); NEUTROPHILS % 62.4 % (38.7-80.0); PLATELET COUNT 360 x10e3/uL (140-360); RED BLOOD COUNT 4.24 x10e6/uL (3.6-5.1)
[2022-04-27 00:14] LABS: CLARITY,URINE CLEAR (CLEAR); COLOR,URINE YELLOW (YELLOW); LEUKOCYTE ESTERASE ,URINE NEGATIVE (NEGATIVE); NITRITE,URINE NEGATIVE (NEGATIVE); PROTEIN,URINE DIPSTICK NEGATIVE (NEGATIVE)
[2022-04-27 00:15] LABS: KETONES,URINE NEGATIVE (NEGATIVE); URINE UROBILINOGEN 0.2 mg/dL (0.2 - 1)
[2022-04-27 00:24] LABS: ANION GAP 14.5 mmol/L (8-16); BACTERIA,URINE FEW /HPF; CALCIUM 9.1 mg/dL (8.4-10.2); CARBON DIOXIDE 24 mmol/L (22-29); CHLORIDE 105 mmol/L (98-107); EPITHELIAL CELLS,URINE FEW /LPF; GLUCOSE 102 mg/dL (74-118); POTASSIUM 3.5 mmol/L (3.5-5.1); RBC,URINE 0-5 /HPF (0-5); SODIUM 140 mmol/L (136-145); WBC,URINE (MAN) 0-5 /HPF (0-5)
[2022-04-27 00:33] LABS: LIPASE 25 U/L (8-78)
[2022-04-27 00:46] LABS: ALANINE AMINOTRANSFERASE 11 IU/L (0-55); ALKALINE PHOSPHATASE 53 IU/L (40-150); BLOOD UREA NITROGEN 9 mg/dL (7-26); BUN/CREATININE RATIO 12 (6-25); CREATININE, SERUM 0.78 mg/dL (0.57-1.11)
== END 2022-04-27 04:20 | disposition home or self-care (01) ==
LOC: ER 22:42
DX: R10.11 Right upper quadrant pain (principal); K80.20 Calculus of gallbladder without cholecystitis without obstruction; R11.0 Nausea; D64.9 Anemia, unspecified
CPT/HCPCS: 36415; 76705; 80053; 81001; 83690; 84702; 85025; 99284; J2270; J2405; J7030